=== PATIENT | female | born 1960 | race Caucasian/White ===

== ENCOUNTER → 2019-09-07 06:59 | Outpatient (CLI) | payer OTHER, SELFPAY ==
--- NOTE | 2019-09-07 | CA_ITS ---
APPROVED REPORT Exam: Pharmacologic Technologist: Isabelle Webster Ht: 5 ft 4 in Wt: 129 lbs BSA: 1.62 m2 HR: 60 bpm BP: 105/66 mmHg Indications: Angina at rest Medical History Medications: Hydrocodone,,,,, Xanax,,,,, TopIRAMATE,,,,, WELLBUTRIN,,,,, FluTICASONE,,,,, Suvorexant,,,,, Stress Test Details Test: LEXISCAN HR Resting HR: 64 bpm Max Heart Rate (APMHR): 163 bpm Max HR Achieved: 101 bpm Target HR (85% APMHR): 138 bpm % of APMHR: 61 Recovery HR: 87 bpm BP Resting BP: 105.0/66.0 mmHg Max BP: 127.0/81.0 mmHg Recovery BP: 116.0/80.0 mmHg ECG Clinical Exercise duration: 04:00 min Highest Stage Achieved: Stress ECG Conclusion Symptoms: Chest pain noted after infusion (just a twinge). Arrhythmias/Ectopy: None ST-T Changes: < 1.[address] segment depression/changes Electronically signed by : Ehsan Conti, 09/08/2019 09:14:29
--- NOTE | 2019-09-07 07:02 | NM_ITS ---
APPROVED REPORT Exam: Nuclear Stress Test Indication: Chest pain, SOB, Tobacco use, Family history Patient Location: Outpatient Stress Tech: Isabelle FERRARI Tech:Delia Hawk, ARRT, RT (R)(N) Ht: 5 ft 4 in Wt: 129 lbs Bra Size: 36D HR: 60 bpm BP: 105/66 mmHg BSA: 1.62 m2 BMI: 22.1 History: Chest pain, SOB, Tobacco use, Family history Procedure: Patient received a 0.4 mg of intravenous Lexiscan, resting heart rate 60 bpm, resting blood pressure 105/66 mmHg, with Lexiscan maximum heart rate achived was 97 bpm which is % of the maximum predicted heart rate and blood pressure was 113/79 mmHg. Cardiac Stress and Resting SPECT Images: Cardiac Stress and Resting SPECT images were obtained using technetium 99m Myoview 32.0 mCi stress and 10.64 mCi at rest. EF 59% No reversible defects Slight decrease activity anterior wall possibly due to breast attenuation artifact Conclusion: EF 59% No reversible defects Slight decrease activity anterior wall possibly due to breast attenuation artifact Electronically signed by : Harshal Carrillo MD 09/09/2019 16:11:31
--- NOTE | 2019-09-07 09:25 | HMH.ITSHM ---
Current Home Medications as stated by this patient Selina Jarod or vaccine customer representative. []PREDNISONE BUPROPION TOPIRAMATE SUVOREXANT FLONASE XANAX
== END ==
PROVIDERS: PCP Family Medicine; Visit Provider Family Medicine
DX: I20.8 Other forms of angina pectoris (principal)
CPT/HCPCS: 78452; 93017; A9502; J2785

== ENCOUNTER → 2019-09-19 10:29 | Outpatient (POV) | payer OTHER, SELFPAY | PROVIDERS: PCP Family Medicine; Referring Provider Family Medicine; Visit Provider Specialist | DX: M79.641 Pain in right hand (principal); R20.2 Paresthesia of skin; R20.0 Anesthesia of skin | CPT/HCPCS: 95886; 95908 ==

== ENCOUNTER → 2019-10-04 08:03 | Outpatient (CLI) | payer OTHER, SELFPAY ==
--- NOTE | 2019-10-04 08:08 | XR_ITS ---
PROCEDURE: XR WRIST LT MIN 3V CLINICAL INDICATION: left wrist pain/ CTS COMPARISON: No exams were available for comparison FINDINGS: There is severe osteoarthritis at the 1st metacarpal-trapezium joint and mild osteoarthritis at the trapezius scaphoid joint. There is no acute fracture dislocation or destructive lesion. 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 Dictated by: Sridhar Allen 10/04/2019 09:04 Electronically signed by Sridhar Allen in [place] 10/04/2019 09:04
--- NOTE | 2019-10-04 08:08 | XR_ITS ---
PROCEDURE: XR WRIST RT MIN 3V CLINICAL INDICATION: right wrist pain/ CTS COMPARISON: No exams were available for comparison FINDINGS: There is moderate osteoarthritis at the trapezium scaphoid joint and the 1st metacarpal-trapezium joint. Incidental note is made of osteoarthritis at the 3rd metacarpophalangeal joint. There is no acute fracture dislocation or destructive lesion. IMPRESSION: Osteoarthritis as described with no acute bone pathology. Dictated by: Sridhar Allen 10/04/2019 09:02 Electronically signed by Sridhar Allen in [place] 10/04/2019 09:02
--- NOTE | 2019-10-04 09:38 | XR_ITS ---
PROCEDURE: XR ELBOW RT MIN 3V CLINICAL INDICATION: right elbow pain COMPARISON: No exams were available for comparison FINDINGS: No fracture or dislocation. No lytic or blastic change. There is normal mineralization. The joint spaces are well-preserved. No significant degenerative/arthritic changes. No erosive changes evident. Other findings:None. IMPRESSION: No acute findings. Dictated by: Sridhar Allen 10/04/2019 10:39 Electronically signed by Sridhar Allen in [place] 10/04/2019 10:39
== END ==
PROVIDERS: PCP Family Medicine; Visit Provider Orthopaedic Surgery
DX: M25.531 Pain in right wrist (principal); M25.532 Pain in left wrist; M25.521 Pain in right elbow
CPT/HCPCS: 73080; 73110

== ENCOUNTER 2019-10-04 10:27 | Outpatient (RCR) | payer OTHER, SELFPAY | END 2019-10-04 11:19 | disposition home or self-care (01) | LOC: OT 10:27 | PROVIDERS: Visit Provider Orthopaedic Surgery | DX: M18.12 Unilateral primary osteoarthritis of first carpometacarpal joint, left hand (principal); M18.11 Unilateral primary osteoarthritis of first carpometacarpal joint, right hand; M77.11 Lateral epicondylitis, right elbow | CPT/HCPCS: 97763 ==

== ENCOUNTER → 2019-11-22 14:43 | Outpatient (CLI) | payer OTHER, SELFPAY ==
--- NOTE | 2019-11-22 14:43 | MR_ITS ---
PROCEDURE: MR ELBOW RT WO CON CLINICAL INDICATION: right elbow pain Right elbow pain with tingling in fingers COMPARISON: XR ELBOW RT MIN 3V from 10/04/2019 TECHNIQUE: Routine multiplanar multi echo sequences are performed without gadolinium enhancement. FINDINGS: There is motion artifact on every image on the axial set. No fracture or dislocation evident. No bone marrow edema. No osteochondral lesions evident There is a small amount fluid in the elbow joint but no displaced fat pad. The ulnar collateral ligament appears intact. There is some increased T2 signal in the lateral collateral ligament which may be due to sprain or partial tear. There is increased T2 signal of the common extensor tendon with edema consistent with lateral epicondylitis. The common flexor tendon has an unremarkable appearance. Triceps tendon appears intact. The biceps tendon to the long head of the biceps and brachialis tendon appears intact. IMPRESSION: Findings are compatible with lateral epicondylitis with sprain or partial tear of the lateral collateral ligament Dictated by: Harshal Carrillo MD 11/25/2019 10:39 Electronically signed by Harshal Carrillo MD in [place] 11/25/2019 10:39
== END ==
PROVIDERS: PCP Family Medicine; Visit Provider Orthopaedic Surgery
DX: M77.11 Lateral epicondylitis, right elbow (principal)
CPT/HCPCS: 73221

== ENCOUNTER → 2020-04-11 12:43 | Outpatient (CLI) | payer OTHER, SELFPAY ==
--- NOTE | 2020-04-11 12:52 | CT_ITS ---
PROCEDURE: CT LUNG SCREENING CLINICAL INDICATION: H/O NICOTINE DEPENDENCE Current smoker 42 pack year smoking history COMPARISON: No exams were available for comparison TECHNIQUE: The exam was performed on a GE Light Speed [address] scanner using 2.90 mGy CTDI. A low dose helical CT CHEST was performed on a multi-detector scanner. All CT scans at the facility use one or more dose reduction, viz: automated exposure control, ma/kV adjustment per patient size (including targeted exams where dose is matched to indication, i.e. head), or iterative reconstruction technique. The LDCT was performed in a facility that meets the criteria for the screening program. Data regarding this exam was submitted to ACR which is an approved registry. The order for this exam indicates that it came as a result of a lung cancer screening counseling shard decision-making visit that included all the elements required of such a visit including smoking cessation. The radiologist interpreting this exam meets the CMS criteria for the LDCT lung cancer screening program. The exam is reported using the Lung-RADS classification scale and reported to the ACR registry. NOTE: This study was performed for the specific purposes of lung cancer screening and is not an alternative to diagnostic chest CT. RADIATION DOSE: CTDI vol(CT dose Index-volume) = 2.90mG DLP (Dose Length Product) = 99.51 mGcm FINDINGS: COPD with mild prominence of the interstitium with mild bronchial thickening. There is evidence of old granulomatous disease with some scattered scarring. OTHER FINDINGS: There is a 2 cm subtle low-density lesion involving the right hepatic lobe which is incompletely imaged. MRI abdomen with hemangioma protocol suggested. There is splenomegaly at 13 cm there are bilateral sub mammary implants. IMPRESSION: Lung-RADS Category 2 Benign Appearance or Behavior Follow-up: Continue annual screening with LDCT in 12 months Recommend MRI abdomen with hemangioma protocol for further evaluation of the 2 cm right hepatic lobe lesion. Dictated by: Harshal Carrillo MD 04/15/2020 12:55 Harshal Carrillo MD in [place] 04/15/2020 12:55
== END ==
PROVIDERS: PCP Family Medicine; Visit Provider Family Medicine
DX: Z87.891 Personal history of nicotine dependence (principal); Z12.2 Encounter for screening for malignant neoplasm of respiratory organs

== ENCOUNTER → 2020-05-02 15:43 | Outpatient (CLI) | payer OTHER, SELFPAY ==
[2020-05-02 17:47] LABS: Blood Urea Nitrogen 10 mg/dl (7-17); Estimated Glomerular Filt Rate 57 ml/min (>60); GFR (African American) 69 ML/MIN (>60)
== END ==
PROVIDERS: Visit Provider Family Medicine
DX: K76.89 Other specified diseases of liver (principal)
CPT/HCPCS: 36415; 82565; 84520

== ENCOUNTER → 2020-05-04 07:41 | Outpatient (CLI) | payer OTHER, SELFPAY ==
--- NOTE | 2020-05-04 07:44 | MR_ITS ---
PROCEDURE: MR ABDOMEN WO/W CON CLINICAL INDICATION: LIVER CYST Follow-up liver lesion COMPARISON: CT CT LUNG SCREENING from 04/11/2020 TECHNIQUE: Routine multiplanar multi echo sequences are performed without gadolinium enhancement. FINDINGS: There is a rounded 2 cm lesion in the right hepatic lobe which demonstrates some lobularity of its margins. This is hypointense on T1 and hyperintense on T2. The T2 hyperintensity is not quite as intense as CSF. There is prominent peripheral centripetal contrast enhancement with delayed enhancement consistent with a hemangioma. The lesion is hyperintense on the DWI images. There is a 6 mm T2 hyperintensity in the hepatic dome on the right which is too small to categorize. The spleen, adrenal glands, pancreas, and kidneys have an unremarkable appearance. There are bilateral breast implants present IMPRESSION: 2 cm lesion in the right lobe of the liver segment 6 compatible with a hemangioma. 6 mm T2 hyperintensity in the patent dome on the right which could be due to small cyst. Six-month follow-up may confirm stability of the above mentioned findings. Dictated by: Harshal Carrillo MD 05/07/2020 06:21 Harshal Carrillo MD in [place] 05/07/2020 06:21
== END ==
PROVIDERS: PCP Family Medicine; Visit Provider Family Medicine
DX: K76.89 Other specified diseases of liver (principal)
CPT/HCPCS: 74183; A9576

== ENCOUNTER 2020-05-30 15:20 | Emergency (ER) | payer OTHER, SELFPAY ==
[2020-05-30 15:48] VITALS: BP 142/87; PULSE 77; RESP 19; TEMP 37; O2SAT 98; BMI 22.3
--- NOTE | 2020-05-30 16:12 | HMH.EDUTC ---
[facility] [place] Disposition Clinical Impression: COPD exacerbation, Exposure to COVID-19 virus Disposition: Home, Self-Care Condition on Discharge: Good Instructions: Preventing the Spread of Coronavirus Discharge Instructions Additional Instructions: Drink plenty of fluids. Take tylenol for pain or fever. Return if you begin to have difficulty breathing. Follow up with your regular doctor. GO TO THE ER FOR ANY WORSENING SYMPTOMS Prescriptions: predniSONE [Prednisone 20mg Tab] 20 mg PO BID 4 Days #8 tab Transmission Status: Received by [facility] Benzonatate [Tessalon Perle 100mg Cap] 100 mg PO TIDP PRN #30 cap PRN Reason: Cough Transmission Status: Received by [facility] Azithromycin [Z-Adam 250mg Tab*] 250 mg PO UD DOSE PK #6 tab Transmission Status: Received by [facility] Referrals: Javier Green MD [Primary Care Provider] - Time of Disposition: 16:31 Medical Decision Making - Medical Records Medical records reviewed: No: I reviewed the patient's medical records. - Rui Inquiry Pt receiving controlled substance: No Vital Signs: 05/30/20 15:48 05/30/20 16:48 Temperature 98.6 F 98.6 F Temperature Source Oral Oral Pulse Rate 77 Pulse Rate [Radial] 77 Respiratory Rate 19 19 Blood Pressure 142/87 H Blood Pressure [Right Arm] 142/87 H Blood Pressure Mean [Right Arm] 105 Blood Pressure Source Automatic Cuff Blood Pressure Source [Right Arm] Automatic Cuff Blood Pressure Position Sitting Blood Pressure Position [Right Arm] Sitting 02 Sat by Pulse Oximetry 98 Oxygen Delivery Method Room Air Room Air Orders (Tests/Meds): ORDERS Category Date Time Status Covid-19 Nasal PCR ([facility]) Routine Lab 05/30/20 15:40 Received [facility] [place] HPI - General Stated complaint: covid exposure Time Seen by Provider: 05/30/20 16:12 Mode of Arrival: Ambulatory Source of Information: Patient Description of Symptoms (Recalled from Triage Doc. by RN): covid test, runny nose SOB HEENT Symptoms (Recalled from RN notes): Yes Resp Symptoms (Recalled from RN notes): No Skin Symptoms (Recalled from RN notes): No MS Symptoms (Recalled from RN notes): No Functional Status (Recalled from RN notes): wnl - History of Present Illness Provider Complaint: She c/o cough, sore throat, chest tightness and feeling bad for the past 2 days. Her mother has covid-19 currently and she has been around her regualarly. She has a history of copd, but she denies significant shortness of breath at this time. - Related Data Home Medications Medication Instructions Recorded Confirmed ALPRAZolam [Xanax 1mg tab] 1 mg PO DIRECTED 03/13/19 04/17/20 Fluticasone Propionate [Flonase 1 spray NS DAILY 03/13/19 04/17/20 Allergy Relief NS] Hydrocodone/Acetaminophen [Lortab 1 tab PO Q4HP PRN 03/13/19 04/17/20 10/325mg tablet] Suvorexant [Belsomra] 20 mg PO HS 03/13/19 04/17/20 Topiramate 150 mg PO BID 03/13/19 04/17/20 buPROPion HCL [Wellbutrin SR 150mg 450 mg PO DAILY 03/13/19 04/17/20 Tablet] Previous Rx's Medication Instructions Recorded Azithromycin [Z-Adam 250mg Tab*] 250 mg PO UD DOSE PK #6 tab 05/30/20 Benzonatate [Tessalon Perle 100mg 100 mg PO TIDP PRN #30 cap 05/30/20 Cap] predniSONE [Prednisone 20mg 20 mg PO BID 4 Days #8 tab 05/30/20 Tab] Allergies Allergy/AdvReac Type Severity Reaction Status Date / Time Sulfa (Sulfonamide Allergy Unknown NAUSEA/VOMI Verified 04/17/20 16:35 Antibiotics) TING [SULFA (SULFONAMIDE ANTIBIOTICS)] - Worker's Comp Is this a Worker's Comp case?: No [facility] History - Hepatitis A Screen Drug use history?: No High risk sexual behaviors?: No History of sexually transmitted infection?: No Currently employed?: No Childcare worker?: No Do you have indoor plumbing?: Yes Do you have electricity?: Yes Attestation statement:: This patient has been screened for Hepatitis A risk fac
[2020-05-30 16:48] VITALS: BP 142/87; PULSE 77; RESP 19; TEMP 37; O2SAT 98
== END 2020-05-30 16:49 | disposition home or self-care (01) ==
PROVIDERS: Emergency Provider Nurse Practitioner Family; PCP Family Medicine
DX: Z20.828 Contact with and (suspected) exposure to other viral communicable diseases (principal); J44.1 Chronic obstructive pulmonary disease with (acute) exacerbation; F41.8 Other specified anxiety disorders; F17.210 Nicotine dependence, cigarettes, uncomplicated; Z79.899 Other long term (current) drug therapy
CPT/HCPCS: 99201; U0003

== ENCOUNTER → 2020-08-28 13:48 | Outpatient (CLI) | payer OTHER, SELFPAY ==
--- NOTE | 2020-08-28 13:53 | XR_ITS ---
PROCEDURE: XR SHOULDER RT MIN 2V CLINICAL INDICATION: PAIN IN RT SHOULDER COMPARISON: No exams were available for comparison FINDINGS: No fracture or dislocation. No lytic or blastic change. There is normal mineralization. The joint spaces are well-preserved. No significant degenerative/arthritic changes. No erosive changes evident. Other findings:No subacromial stenosis. A sclerotic focus is present in the subglenoid region and may be due to a bone island. Calcified granuloma is present in the right apex IMPRESSION: No acute finding Dictated by: Harshal Carrillo MD 08/28/2020 14:23 Harshal Carrillo MD in [place] 08/28/2020 14:23
== END ==
PROVIDERS: PCP Family Medicine; Visit Provider Family Medicine
DX: M25.511 Pain in right shoulder (principal)
CPT/HCPCS: 73030

== ENCOUNTER → 2021-02-06 10:26 | Outpatient (CLI) | payer OTHER, SELFPAY ==
--- NOTE | 2021-02-06 10:30 | XR_ITS ---
PROCEDURE: XR HAND RT MIN 3V CLINICAL INDICATION: METACARPOPHALANGEAL JOINT PAIN OF RT HAND COMPARISON: No exams were available for comparison FINDINGS: No fracture or dislocation. No lytic or blastic change. There is normal mineralization. There are osteoarthritic changes of the scapho trapezium joint in the 1st metacarpal-carpal joint. There is also decrease in the joint space at 2nd and 3rd metacarpophalangeal joint with mild osteosclerosis consistent with mild osteoarthritic change. No obvious soft tissue swelling or bony destruction. Other findings:None. IMPRESSION: Osteoarthritic changes as described above. Dictated by: Harshal Carrillo MD 02/06/2021 11:15 Harshal Carrillo MD in [place] 02/06/2021 11:15
== END ==
PROVIDERS: PCP Family Medicine; Visit Provider Family Medicine
DX: M25.541 Pain in joints of right hand (principal)
CPT/HCPCS: 73130

== ENCOUNTER 2021-03-09 13:02 | Emergency (ER) | payer OTHER, SELFPAY ==
[2021-03-09 15:00] VITALS: BP 127/86; PULSE 68; RESP 18; TEMP 36.9; O2SAT 99; BMI 19.3
--- NOTE | 2021-03-09 15:24 | HMH.EDUTC ---
[place] Disposition Clinical Impression: Exposure to COVID-19 virus Disposition: Home, Self-Care Condition on Discharge: Good Instructions: DI for COVID-19 (Suspected or Confirmed ), Preventing the Spread of Coronavirus Discharge Instructions Additional Instructions: *Monitor Temp, Over the counter Motrin or Tylenol as directed/as needed Tylenol every 4 hours and Motrin every 6 hours (as long as your family doctor has told you that you can take it) for fever or pain. and straight to ER if unable to lower temp less than 101.0 after medication given *Warm salt water gargles may help to soothe the throat *Throat Lozenges *Warm fluids like tea with honey may help to soothe the throat and nasal congestion *Sleep elevated *Humidifier/Vaporizer Follow up IMMEDIATELY for new or worsening symptoms or no Noticeable improvement over the next 48-72 hours. 911 for difficulty breathing or swallowing You were tested for today for COVID19 your test result should be back in the next 24-48 hours, You was given written instructions for [facility] portal you can see your results there when they come back you may check it often to see if they are done You was given a handout with instructions for Self Quarantine and Self isolation for while you wait on test results and what to do if they are positive If you are positive the Health Dept will be contacting you also Make sure to take your Vitamins Vit. C Vit D and Zinc if you can take them Referrals: Javier Green MD [Primary Care Provider] - As needed Time of Disposition: 15:27 Medical Decision Making - Rui Inquiry Pt receiving controlled substance: No Rui was queried for this patient: No Vital Signs: 03/09/21 15:00 03/09/21 15:43 Temperature 98.4 F 98.4 F Temperature Source Oral Pulse Rate 68 Pulse Rate [Right Brachial] 68 Respiratory Rate 18 18 Blood Pressure 127/86 Blood Pressure [Right Arm] 127/86 Blood Pressure Mean [Right Arm] 99 Blood Pressure Source [Right Arm] Automatic Cuff Blood Pressure Position [Right Arm] Sitting 02 Sat by Pulse Oximetry 99 Oxygen Delivery Method Room Air [place] HPI - General Stated complaint: covid symptoms / test Time Seen by Provider: 03/09/21 15:24 Mode of Arrival: Ambulatory Source of Information: Patient Limitations: No Limitations Description of Symptoms (Recalled from Triage Doc. by RN): COVID TEST D/T EXPOSURE 10 DAYS AGO HEENT Symptoms (Recalled from RN notes): No Resp Symptoms (Recalled from RN notes): No Skin Symptoms (Recalled from RN notes): No MS Symptoms (Recalled from RN notes): No Functional Status (Recalled from RN notes): WNL - History of Present Illness Provider Complaint: Patient states that she was around someone about 10 days ago that was positive for COVID state that she has been having cough and feels like she is nasal congestion so she came in wanting to get checked and tested for COVID - Related Data Home Medications Medication Instructions Recorded Confirmed ALPRAZolam [Xanax 1mg tab] 1 mg PO DIRECTED 03/13/19 04/17/20 Fluticasone Propionate [Flonase 1 spray NS DAILY 03/13/19 04/17/20 Allergy Relief NS] Hydrocodone/Acetaminophen [Lortab 1 tab PO Q4HP PRN 03/13/19 04/17/20 10/325mg tablet] Suvorexant [Belsomra] 20 mg PO HS 03/13/19 04/17/20 Topiramate 150 mg PO BID 03/13/19 04/17/20 buPROPion HCL [Wellbutrin SR 150mg 450 mg PO DAILY 03/13/19 04/17/20 Tablet] Previous Rx's Medication Instructions Recorded Azithromycin [Z-Adam 250mg Tab*] 250 mg PO UD DOSE PK #6 tab 05/30/20 Benzonatate [Tessalon Perle 100mg 100 mg PO TIDP PRN #30 cap 05/30/20 Cap] predniSONE [Prednisone 20mg 20 mg PO BID 4 Days #8 tab 05/30/20 Tab] Allergies Allergy/AdvReac Type Severity Reaction Status Date / Time Sulfa (Sulfonamide Allergy Unknown NAUSEA/VOMI Verified 04/17/20 16:35 Antibiotics) TING [SULFA (SULFONAMIDE ANTIBIOTICS)] - Worker's Comp Is this a Wo
[2021-03-09 15:43] VITALS: BP 127/86; PULSE 68; RESP 18; TEMP 36.9; O2SAT 99
== END 2021-03-09 15:50 | disposition home or self-care (01) ==
PROVIDERS: Emergency Provider Nurse Practitioner Family; PCP Family Medicine
DX: R05 Cough (principal); Z20.822 Contact with and (suspected) exposure to COVID-19
CPT/HCPCS: 99202; G0463; U0003

== ENCOUNTER → 2021-11-20 17:50 | Outpatient (CLI) | payer OTHER, SELFPAY ==
[2021-11-20 13:59] LABS: Alanine Aminotransferase 15 U/L (12-78); Albumin Level 4.3 g/dl (3.5-5.0); Alkaline Phosphatase 61 U/L (38-126); Anion Gap 12.2 mEq/L (5-15); Aspartate Amino Transferase 24 U/L (14-36); Blood Urea Nitrogen 6 mg/dl (7-17); Calcium 9.3 mg/dl (8.4-10.2); Carbon Dioxide 25 mmol/L (22.0-30.0); Chloride 109 mmol/L (98-107); Chol/HDL Ratio 2.8 (1-3.5); Cholesterol 218 mg/dl (140-200); Estimated Glomerular Filt Rate 73 ml/min (>60); GFR (African American) 89 ML/MIN (>60); Globulin 2.2 g/dL (1.3-3.2); Glucose 79 mg/dl (74-100); HDL Cholesterol 78 mg/dl (40-60); Potassium 4.2 mmoL/L (3.5-5.1); Sodium 142 mmol/L (136-145); Total Protein,Serum 6.5 g/dl (6.3-8.2); Triglycerides 90 mg/dl (30-150); VLDL Cholesterol 18 mg/dL (0-40)
[2021-11-20 14:01] LABS: Basophils # 0.1 K/mm3 (0-0.2); Basophils % 1.6 % (0.1-2.0); Eosinophils # 0.4 K/mm3 (0.0-0.4); Eosinophils % 6.4 % (0.1-12.0); Hematocrit 44.9 % (37.0-47.0); Hemoglobin 14.5 g/dL (12.2-16.2); Lymphocytes # 1.5 K/mm3 (0.7-4.5); Lymphocytes % 23.3 % (10-50); Mean Corpuscular HGB Conc 32.4 g/dL (31.8-35.4); Mean Corpuscular Hemoglobin 32.7 pg (27.0-31.2); Mean Corpuscular Volume 101.1 fl (81-99); Mean Platelet Volume 11.3 fl (7.4-10.4); Monocytes # 0.4 K/mm3 (0.1-1.0); Monocytes % 5.9 % (1.7-9.3); Neutrophils # 4.2 K/mm3 (1.8-7.8); Neutrophils % 62.7 % (37.0-80.0); Platelet Count 289 K/mm3 (142-424); Red Blood Count 4.44 M/mm3 (4.20-5.40); Red Cell Distribution Width 12.9 % (11.5-17.5); White Blood Count 6.6 K/mm3 (4.8-10.8)
[2021-11-20 14:06] LABS: Bilirubin,Total < 0.1 mg/dl (0.2-1.3)
[2021-11-20 14:10] LABS: Direct LDL Cholesterol 111.57 mg/dL (100-129)
[2021-11-20 14:15] LABS: Free T4 (Free Thyroxine) 0.86 ng/dl (0.78-2.19)
[2021-11-20 14:23] LABS: Amphetamine/Metha Screen,Urine Negative ng/ml (<1000)
[2021-11-20 14:24] LABS: Barbiturates Screen,Urine Negative ng/ml (<200); Benzodiazepines Screen,Urine Positive ng/ml (<200)
[2021-11-20 14:25] LABS: Cannabinoid Screen,Urine Negative ng/ml (<50)
[2021-11-20 14:26] LABS: Cocaine Screen,Urine Negative ng/ml (<300); Methadone Screen,Urine Negative ng/ml (<300)
[2021-11-20 14:27] LABS: Opiate Screen,Urine Positive ng/ml (<300)
[2021-11-20 14:28] LABS: Phencyclidine Screen,Urine Negative ng/ml (<25)
[2021-11-20 14:31] LABS: Thyroid Stimulating Hormone 2.07 uIU/mL (0.465-4.68)
== END ==
PROVIDERS: Visit Provider Emergency Medicine
DX: G43.909 Migraine, unspecified, not intractable, without status migrainosus (principal); E55.9 Vitamin D deficiency, unspecified; Z79.899 Other long term (current) drug therapy
CPT/HCPCS: 80053; 80061; 80305; 82306; 84439; 84443; 85025

== ENCOUNTER → 2021-11-27 14:52 | Outpatient (CLI) | payer OTHER, SELFPAY ==
--- NOTE | 2021-11-27 14:53 | MR_ITS ---
FINAL REPORT TECHNIQUE: Multiplanar and multisequence imaging of the cervical spine was obtained. CLINICAL HISTORY: neck pain. NECK PAIN WITH LIMITED MOVEMENT. HEADACHE. BILATERAL SHOULDER PAIN. FINDINGS: There is reversal the cervical lordosis. Alignment is otherwise normal. There is very mild chronic anterior compression of C4. Signal intensity within the substance of the spinal cord is normal. Bone marrow signal intensity is normal. Paraspinal soft tissues are within normal limits. C2/3: There is no focal disc herniation, central stenosis or neural foraminal narrowing. C3/4: There is a central disc protrusion superimposed on disc osteophyte complex. There is mild central canal and bilateral foraminal narrowing. C4/5: There is a mild disc osteophyte complex. There is mild central canal stenosis. There is severe bilateral foraminal narrowing. C5/6: There is a mild disc osteophyte complex. There is no central canal stenosis. There is severe right and moderate left foraminal narrowing. C6/7: There is a broad-based disc osteophyte complex. There is no central canal stenosis. There is moderate right and severe left foraminal narrowing. C7/T1: There is no focal disc herniation, central stenosis or neural foraminal narrowing. IMPRESSION: Reversal the cervical lordosis. Multilevel degenerative disc disease as described.. Reviewed, Interpreted and Dictated by Jessica Mercado MD Transcribed by Júnior Bonner Authenticated by Jessica Mercado MD on 11/27/2021 04:56:50 PM [facility]
--- NOTE | 2021-11-27 14:53 | MR_ITS ---
FINAL REPORT TECHNIQUE: Multiplanar and multisequence imaging of the lumbar spine was obtained without contrast. CLINICAL HISTORY: back pain. BILATERAL LEG PAIN BUT WORSE IN LEFT LEG. COMPARISON: None. FINDINGS: There is mild levoscoliosis. There is grade 1 anterior spondylolisthesis of L3 on L4. Alignment is otherwise normal. Vertebral body height is preserved. The spinal cord ends at the level of L1. There is normal signal intensity within the substance of the distal spinal cord. There are degenerative endplate changes at L4-5. Marrow signal is otherwise normal. No acute paraspinal abnormality is identified. L1-2: There is mild disc osteophyte complex. There is no central canal stenosis. There is mild left greater than right foraminal narrowing. L2-3: There is mild disc osteophyte complex. There is no central canal stenosis. There is mild to moderate left foraminal narrowing. L3-4: There is broad-based disc osteophyte complex. There is moderate to severe central canal stenosis. There is severe right and mild to moderate left foraminal narrowing. L4-5: There is mild disc osteophyte complex. There is moderate central canal stenosis. There is moderate to severe L5-S1: There is mild disc osteophyte complex. There is no central stenosis. There is mild right and moderate left foraminal narrowing. IMPRESSION: 1. Grade 1 anterior spondylolisthesis of L3 on L4. 2. Multilevel degenerative disc disease as detailed above for each level. 3. Mild scoliosis. Authenticated by Jessica Mercado MD on 11/27/2021 05:05:43 PM [facility]
== END ==
PROVIDERS: PCP Emergency Medicine; Visit Provider Emergency Medicine
DX: M54.9 Dorsalgia, unspecified (principal); M54.2 Cervicalgia; M54.50 Low back pain, unspecified
CPT/HCPCS: 72141; 72148; 76376

== ENCOUNTER → 2021-11-29 14:35 | Outpatient (CLI) | payer OTHER, SELFPAY ==
--- NOTE | 2021-11-29 14:35 | MM_ITS ---
PROCEDURE INFORMATION: Exam: MG Bilateral Screening 3D Mammography Exam date and time: 11/29/2021 3:11 PM Age: 61 years old Clinical indication: Screening examination. No family history of breast cancer. TECHNIQUE: Imaging protocol: Bilateral Screening tomosynthesis and 2D mammography including computer-aided detection (CAD) when performed. COMPARISON: No relevant prior studies available. FINDINGS: MAMMOGRAPHY: Breast composition: There are scattered areas of fibroglandular density. Mass: None. Architectural distortion: None. Calcifications: No suspicious calcifications. Asymmetric density: None. Skin thickening: None. Axillary adenopathy: None. Implants: Subpectoral saline implants. IMPRESSION: No mammographic evidence of malignancy. Annual screening is recommended unless otherwise clinically indicated. ASSESSMENT: BI-RADS Category 1: Negative
== END ==
PROVIDERS: PCP Emergency Medicine; Visit Provider Emergency Medicine
DX: Z12.31 Encounter for screening mammogram for malignant neoplasm of breast (principal)
CPT/HCPCS: 77063; 77067

== ENCOUNTER → 2021-12-17 10:45 | Outpatient (POV) | payer OTHER, SELFPAY ==
--- NOTE | 2021-12-17 11:38 | HMH.PMCON ---
Assessment and Plan (1) Cervical pain (neck) Status: Chronic Category: Medical Code(s): M54.2 - Cervicalgia (2) Cervical radiculopathy Status: Chronic Category: Medical Code(s): M54.12 - Radiculopathy, cervical region (3) Lumbar back pain with radiculopathy affecting lower extremity Status: Chronic Category: Medical Code(s): M54.16 - Radiculopathy, lumbar region - Assessment and plan all Dx Assessment and Plan for all problems:: This patient is a very pleasant 61-year-old female who comes our clinic today regarding cervical neck pain with radicular symptoms into bilateral arms as well as lumbar back pain with radicular symptoms in the bilateral legs. Patient's main complaint is cervical neck pain with radicular symptoms patient has been having this for 5 to 6 years. Her cervical MRI shows degenerative disc disease multilevel cervical spine. Multilevel foraminal stenosis cervical spine. Patient has a longstanding history of migraine headaches. She has had some medial branch blocks in the cervical spine with radiofrequency ablation. However, this did not bring her any relief to speak of. She describes her cervical neck pain as constant, dull, aching. She does complain of bilateral arm radicular symptoms at times. As well as migraines. Also, patient describes low back pain is constant, dull, aching. She refers to bilateral posterior hip and leg radicular symptoms. Patient's lumbar MRI shows degenerative disc disease lumbar spine multilevels. Lumbar spondylosis. Spinal stenosis lumbar spine. Spondylolisthesis L3-4. Patient is currently taking hydrocodone 10 mg 1 p.o. 4 times daily. This comes from her PCP. Her Rui #[id number] is been reviewed and appropriate. Patient states the pain medicine does seem to help her pain. 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 Patient has tried physical therapy in the past with minimal to no results. She does alternate acetaminophen and ibuprofen 2-3 times a day. This brings slight relief. Is awake alert [place] x3. In no acute distress. Flexion-extension lumbar spine and cervical spine somewhat guarded secondary to pain. Deep tendon reflexes upper and lower extremities normal. Motor strength upper and lower extremities normal. There is no gross sensory deficit. Gait is normal. Degenerative disc disease cervical spine. Degenerative disc disease lumbar spine. Cervical and lumbar radiculopathy symptoms. Discussed in detail with the patient regarding options of treatment. We will focus on the cervical spine first. We discussed at length cervical epidural steroid injection. She wishes to proceed. HPI - Data of Consult Consult date: 12/17/21 Requesting Physician: Regino Nair CRNA - Consult Narrative Reason for consult: Lumbar back pain. Cervical neck pain. History of present illness: Ms. Olivera is a 61 year old female CC: Regino Nair CRNA [facility] History Medical History: Reports:: Anxiety, Chronic Obstructive Pulmonary Disease (COPD), Depression *Have you ever received a pneumonia vaccine?: No *Have you received a flu vaccine this season?: Yes Other Surgeries: Yes: Appendectomy, Colonoscopy, Dilation and Curettage, Hysterectomy-Total Amputation: No Fractures: No - *Social History Smoking Status: Current every day smoker Tobacco Type: cigarettes # Packs/Day (cigarettes): 1 Alcohol Intake: never Substance Use Type: denies use *Occupational Status:: other, unemployed *Travel in the last 8 weeks: Inside the [place] - Psychiatric History Pschychiatric History:: Reports:: Anxiety, Depression Family Hx:: Heart Attack, Cancer Meds Home Medications Medication Instructions Recorded Confirmed Type Suvorexant [Belsomra] 20 mg PO HS 03/13/19 11/20/21 History Topiramate 150 mg PO BID 03/13/19 11/20/21 History buPROPion HCL [Wellbutrin SR 150mg 450 mg PO DAILY 03/13/19 11/20/21 History Tablet] alprazolam 1 mg tablet
[2021-12-17 12:20] VITALS: BP 118/76; PULSE 68; RESP 20; TEMP 36.7; O2SAT 97; BMI 20.2
== END ==
PROVIDERS: Visit Provider Nurse Anesthetist, Certified Registered
DX: M51.16 Intervertebral disc disorders with radiculopathy, lumbar region (principal); M50.10 Cervical disc disorder with radiculopathy, unspecified cervical region
CPT/HCPCS: 99202; G0463

== ENCOUNTER 2022-01-03 13:26 | Day surgery (SDC) | payer OTHER, SELFPAY ==
[2022-01-03 13:51] VITALS: BP 104/80; PULSE 74; RESP 18; TEMP 36.6; O2SAT 96; BMI 19.7
[2022-01-03 14:14] VITALS: BP 135/74; PULSE 85; RESP 18; O2SAT 98
[2022-01-03 14:15] VITALS: BP 132/74; PULSE 68; RESP 18; O2SAT 98
--- NOTE | 2022-01-03 14:18 | HMH.PMPROC ---
- Procedure Date: 01/03/22 Time: 14:18 Anesthesiologist:: Cecil Mcnamara MD Complications:: None Pre-procedure Diagnosis:: Degenerative disc disease of cervical spine with cervical radiculopathy symptoms Post-procedure Diagnosis:: Same Indications for Procedure:: Patient is a pleasant 61-year-old white female who we are treating for neck pain with cervical radicular symptoms. She has increasing pain in her neck radiating to both shoulders. We will plan on cervical epidural steroid injection under fluoroscopy today to see if this helps with her pain symptoms. Procedure Details:: Cervical epidural steroid injection under fluoroscopy Informed consent was obtained and the risks and benefits of the procedure was explained to the patient. The patient was taken to the procedure room placed prone on the procedure table. The neck was prepped using ChloraPrep. The skin and subcutaneous tissues were anesthetized using lidocaine. I placed a 18-gauge epidural needle into the C5-C6 interspace and advanced using [id number] to air and fluoroscopic guidance. After confirmation of needle placement in the epidural space with dye, I injected 3 mL's lidocaine 1.5% and Depo-Medrol 80 mg. The patient tolerated the procedure well with no complications. Plan and Disposition:: We will follow-up with her in 2 weeks. Will reevaluate symptoms at that time.
[2022-01-03 14:25] VITALS: BP 143/77; PULSE 78; RESP 20; O2SAT 100
== END 2022-01-03 14:26 | disposition home or self-care (01) ==
LOC: SC.PAINP 13:27
PROVIDERS: PCP Emergency Medicine; Visit Provider Anesthesiology
DX: M50.122 Cervical disc disorder at C5-C6 level with radiculopathy (principal)
CPT/HCPCS: 62321; J1040; Q9966

== ENCOUNTER → 2022-01-17 14:28 | Outpatient (CLI) | payer OTHER, SELFPAY ==
[2022-01-17 14:40] LABS: Benzodiazepines Screen,Urine Positive ng/ml (<200)
[2022-01-17 14:41] LABS: Amphetamine/Metha Screen,Urine Negative ng/ml (<1000)
[2022-01-17 14:42] LABS: Barbiturates Screen,Urine Negative ng/ml (<200); Cannabinoid Screen,Urine Negative ng/ml (<50)
[2022-01-17 14:43] LABS: Cocaine Screen,Urine Negative ng/ml (<300); Methadone Screen,Urine Negative ng/ml (<300)
[2022-01-17 14:44] LABS: Opiate Screen,Urine Positive ng/ml (<300)
[2022-01-17 14:45] LABS: Phencyclidine Screen,Urine Negative ng/ml (<25)
== END ==
PROVIDERS: PCP Emergency Medicine; Visit Provider Emergency Medicine
DX: Z79.899 Other long term (current) drug therapy (principal)
CPT/HCPCS: 80305

== ENCOUNTER → 2022-01-20 11:13 | Outpatient (CLI) | payer OTHER, SELFPAY ==
--- NOTE | 2022-01-20 11:14 | MR_ITS ---
FINAL REPORT CLINICAL HISTORY: near constant headache. MIGRAINE HEADACHE BECOMING MORE FREQUENT. DIZZINESS AND BLUURED VISION. FINDINGS: Multiplanar MR imaging of the brain was performed without contrast. There are multiple foci of increased T2 signal in the cerebral white matter. There is no evidence of intracranial hemorrhage or mass. The ventricular size is normal. There is no evidence of shift of the midline structures. No abnormal extra-axial fluid collection is identified. The posterior fossa and brainstem have an unremarkable appearance. No area of abnormal restricted diffusion is identified. Normal major vessel vascular flow voids are seen. IMPRESSION: Multiple foci of increased T2 signal in the cerebral white matter are favored to represent mild, chronic ischemic/gliotic change room attendant other etiologies including demyelination and vasculitis. Reviewed, Interpreted and Dictated by Lucas Prado III, MD Transcribed by Júnior Bonner Authenticated and . [facility]
== END ==
PROVIDERS: PCP Emergency Medicine; Visit Provider Nurse Practitioner Family
DX: G43.119 Migraine with aura, intractable, without status migrainosus (principal); G44.209 Tension-type headache, unspecified, not intractable; G44.40 Drug-induced headache, not elsewhere classified, not intractable; G44.86 Cervicogenic headache; G89.29 Other chronic pain; M54.2 Cervicalgia
CPT/HCPCS: 70551

== ENCOUNTER 2022-02-05 14:40 | Emergency (ER) | payer OTHER, SELFPAY ==
--- NOTE | 2022-02-05 15:06 | HMH.EDUTC ---
[facility] [place] Disposition Clinical Impression: COVID-19 Acute bronchitis Qualifiers: Bronchitis organism: unspecified organism Qualified Code(s): J20.9 - Acute bronchitis, unspecified Disposition: Home, Self-Care Condition on Discharge: Good Instructions: DI for COVID-19 (Suspected or Confirmed ), Preventing the Spread of Coronavirus Discharge Instructions Additional Instructions: Drink plenty of fluids. Take tylenol or ibuprofen for pain or fever. Take the medications as directed. Follow up with your regular doctor. GO TO THE ER FOR ANY WORSENING SYMPTOMS Prescriptions: Benzonatate [Benzonatate 100mg cap] 100 mg PO TIDP PRN #30 cap PRN Reason: Cough Transmission Status: Received by [facility] methylPREDNISolone [Medrol] 4 mg PO DIRECTED 6 Days #21 packet Transmission Status: Received by [facility] Azithromycin [Z-Adam 250mg Tab*] 250 mg PO UD DOSE PK #6 tab Transmission Status: Received by [facility] Referrals: Parmjit Reyna MD [Primary Care Provider] - Time of Disposition: 15:56 Medical Decision Making - Medical Records Medical records reviewed: No: I reviewed the patient's medical records. - Rui Inquiry Pt receiving controlled substance: No Vital Signs: 02/05/22 15:19 02/05/22 16:04 Temperature 98.3 F 98.3 F Temperature Source Oral Pulse Rate 71 Pulse Rate [Left] 71 Respiratory Rate 16 16 Blood Pressure 128/82 Blood Pressure [Right Arm] 128/82 Blood Pressure Mean [Right Arm] 97 02 Sat by Pulse Oximetry 97 Orders (Tests/Meds): ORDERS Category Date Time Status Chest XR 2 view (NOT portable) [XR chest 2V] Stat Exams 02/05/22 15:16 Taken Covid-19 Nasal PCR ([facility]) Routine Lab 02/05/22 15:11 Received - Radiology Data #1 Image(s): Chest Image Reviewed: Yes I reviewed the patient's radiology image, Yes I have reviewed radiologist's interpretation Preliminary Findings: No Infiltrates Seen [facility] [place] HPI - General Stated complaint: sore throat, shortness of breath, diarreah Time Seen by Provider: 02/05/22 15:06 - History of Present Illness Provider Complaint: She states that she tested positive for covid-19 one week ago. She states that she is having chest congestion and a productive cough for the past 4 days. - Related Data Home Medications Medication Instructions Recorded Confirmed Suvorexant [Belsomra] 20 mg PO HS 03/13/19 01/17/22 Topiramate 100 mg PO TID 03/13/19 01/17/22 buPROPion HCL [Wellbutrin SR 150mg 450 mg PO DAILY 03/13/19 01/17/22 Tablet] Albuterol Sulfate [Proair Hfa] 90 mcg IH DIRECTED PRN 12/17/21 01/17/22 Ascorbic Acid [Vitamin C] 1,000 mg PO DAILY 12/17/21 01/17/22 Aspirin 81 mg PO DAILY 12/17/21 01/17/22 Benzonatate [Benzonatate 100mg 100 mg PO TID PRN 12/17/21 01/17/22 cap] Budesonide/Formoterol Fumarate 2 puff IH Q12H 12/17/21 01/17/22 [Budesonide-Formoterol 160-4.5] Cyanocobalamin (Vitamin B-12) 2,500 mcg PO DAILY 12/17/21 01/17/22 [Vitamin B-12] Famotidine [Acid Controller] 20 mg PO HS 12/17/21 01/17/22 Promethazine HCl [Phenergan 25mg 25 mg PO Q6H PRN 12/17/21 01/17/22 tab] Vitamin E (Dl,Tocopheryl Acet) 180 mg PO DAILY 12/17/21 01/17/22 [Vitamin E] estradioL [Estradiol] 1 mg PO DAILY 12/17/21 01/17/22 Previous Rx's Medication Instructions Recorded fremanezumab-vfrm 225 mg/1.5 mL 225 mg SQ QMONTH #1.5 ml 01/14/22 subcutaneous auto-injector rizatriptan 10 mg disintegrating See Rx Instructions PO .COMPLEX 01/14/22 tablet PRN #10 tab alprazolam 1 mg tablet 1 mg PO QID #120 tab 01/17/22 hydrocodone 10 mg-acetaminophen 1 tab PO Q6H PRN 30 Days #120 tab 01/17/22 325 mg tablet Azithromycin [Z-Adam 250mg Tab*] 250 mg PO UD DOSE PK #6 tab 02/05/22 Benzonatate [Benzonatate 100mg 100 mg PO TIDP PRN #30 cap 02/05/22 cap] methylPREDNISolone [Medrol] 4 mg PO DIRECTED 6 Days #21 02/05/22 packet Allergies Allergy/AdvReac Type
--- NOTE | 2022-02-05 15:16 | XR_ITS ---
FINAL REPORT CLINICAL HISTORY: COVID positive x 1 wk, SOA, CP, cough worsened. Hx of COPD FINDINGS: Two views of the chest were obtained. The heart size and pulmonary vascularity are within normal limits. The mediastinum is normal. No acute pulmonary abnormality is identified. There is no pneumothorax. The bony thorax is intact. IMPRESSION: No active cardiopulmonary disease. Reviewed, Interpreted and Dictated by Lucas Prado III, MD Transcribed by Júnior Bonner Authenticated and [facility]
[2022-02-05 15:19] VITALS: BP 128/82; PULSE 71; RESP 16; TEMP 36.8; O2SAT 97; BMI 19.5
[2022-02-05 16:04] VITALS: BP 128/82; PULSE 71; RESP 16; TEMP 36.8
== END 2022-02-05 16:05 | disposition home or self-care (01) ==
PROVIDERS: Emergency Provider Nurse Practitioner Family; PCP Emergency Medicine
DX: U07.1 COVID-19 (principal); J02.9 Acute pharyngitis, unspecified; J44.9 Chronic obstructive pulmonary disease, unspecified; F17.210 Nicotine dependence, cigarettes, uncomplicated
CPT/HCPCS: 71046; 99212; C9803; G0463; U0003; U0005

== ENCOUNTER → 2022-02-22 11:17 | Outpatient (CLI) | payer OTHER, SELFPAY ==
[2022-02-22 13:57] LABS: Folate 2.43 ng/mL; Vitamin B12 > 1000 pg/mL (239-931)
== END ==
PROVIDERS: PCP Emergency Medicine; Visit Provider Nurse Practitioner Family
DX: F11.90 Opioid use, unspecified, uncomplicated (principal); G43.119 Migraine with aura, intractable, without status migrainosus; G44.209 Tension-type headache, unspecified, not intractable; G44.40 Drug-induced headache, not elsewhere classified, not intractable; G44.86 Cervicogenic headache; G47.9 Sleep disorder, unspecified; G89.29 Other chronic pain; J44.9 Chronic obstructive pulmonary disease, unspecified; M54.2 Cervicalgia
CPT/HCPCS: 36415; 82607; 82746

== ENCOUNTER → 2022-03-14 11:19 | Outpatient (CLI) | payer OTHER, SELFPAY ==
[2022-03-14 16:27] LABS: Amphetamine/Metha Screen,Urine Negative ng/ml (<1000); Barbiturates Screen,Urine Negative ng/ml (<200)
[2022-03-14 16:28] LABS: Benzodiazepines Screen,Urine Positive ng/ml (<200)
[2022-03-14 16:29] LABS: Cannabinoid Screen,Urine Negative ng/ml (<50); Cocaine Screen,Urine Negative ng/ml (<300)
[2022-03-14 16:30] LABS: Methadone Screen,Urine Negative ng/ml (<300); Opiate Screen,Urine Positive ng/ml (<300)
[2022-03-14 16:31] LABS: Phencyclidine Screen,Urine Negative ng/ml (<25)
== END ==
PROVIDERS: PCP Emergency Medicine; Visit Provider Nurse Practitioner Family
DX: Z79.899 Other long term (current) drug therapy (principal)
CPT/HCPCS: 80305

== ENCOUNTER → 2022-03-24 07:23 | Outpatient (CLI) | payer OTHER, SELFPAY ==
--- NOTE | 2022-03-24 | CA_ITS ---
APPROVED REPORT Exam: Pharmacologic Technologist: Maryuri Coleman, Ht: 5 ft 4 in Wt: 119 lbs BSA: 1.57 m2 HR: 57 bpm BP: 117/81 mmHg Medical History Medications: Alprazolam,,,,, Aspirin,,,,, Vitamin C,,,,, TopIRAMATE,,,,, SyMBICORT,,,,, Albuterol,,,,, Estradiol,,,,, ProMETHAZINE,,,,, Famotidine,,,,, BuPROPION,,,,, Suvorexant,,,,, UBrogepant,,,,, Allergies: sulfa Cardiac Risk Factors: Smoking Stress Test Details Test: LEXISCAN HR Resting HR: 61 bpm Max Heart Rate (APMHR): 160.002168 bpm Max HR Achieved: 96 bpm Target HR (85% APMHR): 136.812601 bpm % of APMHR: 60.00 BP Resting BP: 117/81 mmHg Max BP: 140/87 mmHg Recovery BP: 127.0/84.0 mmHg ECG Clinical Exercise duration: 04:00 min Highest Stage Achieved: Exercise capacity: 1.0 METs Stress ECG Conclusion PT HAD SOA, CHEST TIGHTNESS, AND LIGHT HEADACHE. <1.[address] CHANGES. Electronically signed by : Jose Daniel MD 03/24/2022 16:37:59
--- NOTE | 2022-03-24 07:24 | NM_ITS ---
APPROVED REPORT Exam: Nuclear Stress Test Indication: Chest pain, SOB, Tobacco use, Family history Patient Location: Outpatient Stress Tech: Maryuri Jimenes [place] Tech:Delia Hawk, ARRT, RT (R)(N) Ht: 5 ft 4 in Wt: 116 lbs Bra Size: 36B HR: 61 bpm BP: 117/81 mmHg BSA: 1.55 m2 TID: 1.09 BMI: 19.9 History: Chest pain, SOB, Tobacco use, Family history Procedure: Patient received a 0.4 mg of intravenous Lexiscan, resting heart rate 61 bpm, resting blood pressure 117/81 mmHg, with Lexiscan maximum heart rate achived was 96 bpm which is Less than 85 % of the maximum predicted heart rate and blood pressure was 140/87 mmHg. With Lexiscan, patient denied any complaint of chest pain. Electrocardiogram Resting electrocardiogram shows sinus rhythm, with Lexiscan less than 1.[address] segment depression noted from the baseline EKG. The EKG portion of the Lexiscan is nondiagnostic. Cardiac Stress and Resting SPECT Images: Cardiac Stress and Resting SPECT images were obtained using technetium 99m Myoview 29.0 mCi stress and 10.72 mCi at rest. Gated SPECT analysis of segmental wall motion and calculation of the ejection fraction also done, prone images were also obtained. Cardiac stress and rest SPECT images show uniform myocardial activity without segmental perfusion abnormality, computer derived ejection fraction is 63% with no regional wall motion abnormality, right ventricle is normal size and contractility. Conclusion: 1. The EKG portion of the Lexiscan is nondiagnostic. 2. No scintigraphic evidence of reversible ischemia seen, compared right ejection fraction 63% with no regional wall motion abnormality, right ventricle is normal size and contractility. 3. Normal Lexiscan Myoview study. Electronically signed by : Jose Daniel MD 03/24/2022 16:40:15
--- NOTE | 2022-03-24 09:48 | HMH.ITSHM ---
Current Home Medications as stated by this patient Selina Jarod or front desk representative. []VITAMIN E UBROGEPANT TOPIRAMATE SUVORENXANT PROMETHAZINE ALBUTEROL LEVOFLOXACIN HYDROCODONE FREMANEZUMAB FAMOTIDINE ESTRADIOL VITAMIN B12 BUPROPION BUDESONIDE ASA VITAMIN C ALPRAZOLAM
== END ==
PROVIDERS: PCP Emergency Medicine; Visit Provider Emergency Medicine
DX: R07.9 Chest pain, unspecified (principal)
CPT/HCPCS: 78452; 93017; A9502; J2785

== ENCOUNTER → 2022-04-11 15:11 | Outpatient (CLI) | payer OTHER, SELFPAY | PROVIDERS: PCP Emergency Medicine; Visit Provider Nurse Practitioner Family | DX: R06.02 Shortness of breath (principal); R07.89 Other chest pain | CPT/HCPCS: 94762 ==

== ENCOUNTER → 2022-06-06 16:40 | Outpatient (CLI) | payer OTHER, SELFPAY ==
[2022-06-06 16:32] LABS: Amphetamine/Metha Screen,Urine Negative ng/ml (<1000)
[2022-06-06 16:33] LABS: Barbiturates Screen,Urine Negative ng/ml (<200); Benzodiazepines Screen,Urine Positive ng/ml (<200)
[2022-06-06 16:34] LABS: Cannabinoid Screen,Urine Negative ng/ml (<50)
[2022-06-06 16:35] LABS: Cocaine Screen,Urine Negative ng/ml (<300); Methadone Screen,Urine Negative ng/ml (<300)
[2022-06-06 16:36] LABS: Opiate Screen,Urine Positive ng/ml (<300)
[2022-06-06 16:37] LABS: Phencyclidine Screen,Urine Negative ng/ml (<25)
== END ==
PROVIDERS: PCP Emergency Medicine; Visit Provider Emergency Medicine
DX: Z79.899 Other long term (current) drug therapy (principal)
CPT/HCPCS: 80305

== ENCOUNTER → 2022-08-11 23:30 | Outpatient (CLI) | payer OTHER, SELFPAY ==
[2022-08-11 18:16] LABS: Barbiturates Screen,Urine Negative ng/ml (<200); Cannabinoid Screen,Urine Negative ng/ml (<50)
[2022-08-11 18:17] LABS: Benzodiazepines Screen,Urine Positive ng/ml (<200); Cocaine Screen,Urine Negative ng/ml (<300)
[2022-08-11 18:18] LABS: Methadone Screen,Urine Negative ng/ml (<300)
[2022-08-11 18:19] LABS: Opiate Screen,Urine Positive ng/ml (<300); Phencyclidine Screen,Urine Negative ng/ml (<25)
[2022-08-13 18:48] LABS: Amphetamine/Metha Screen,Urine Negative ng/ml (<1000)
== END ==
PROVIDERS: PCP Emergency Medicine; Visit Provider Emergency Medicine
DX: Z79.899 Other long term (current) drug therapy (principal)
CPT/HCPCS: 80305

== ENCOUNTER → 2022-10-06 10:37 | Outpatient (CLI) | payer OTHER, SELFPAY ==
[2022-10-06 15:14] LABS: Amphetamine/Metha Screen,Urine Negative ng/ml (<1000); Barbiturates Screen,Urine Negative ng/ml (<200)
[2022-10-06 15:15] LABS: Benzodiazepines Screen,Urine Positive ng/ml (<200)
[2022-10-06 15:16] LABS: Cannabinoid Screen,Urine Negative ng/ml (<50); Cocaine Screen,Urine Negative ng/ml (<300)
[2022-10-06 15:17] LABS: Methadone Screen,Urine Negative ng/ml (<300); Opiate Screen,Urine Positive ng/ml (<300)
[2022-10-06 15:18] LABS: Phencyclidine Screen,Urine Negative ng/ml (<25)
== END ==
PROVIDERS: PCP Emergency Medicine; Visit Provider Emergency Medicine
DX: G89.29 Other chronic pain (principal)
CPT/HCPCS: 80305

== ENCOUNTER → 2022-12-02 15:00 | Outpatient (CLI) | payer OTHER, SELFPAY ==
[2022-12-02 15:20] LABS: Amphetamine/Metha Screen,Urine Negative ng/ml (<1000); Barbiturates Screen,Urine Negative ng/ml (<200)
[2022-12-02 15:21] LABS: Benzodiazepines Screen,Urine Positive ng/ml (<200)
[2022-12-02 15:22] LABS: Cannabinoid Screen,Urine Negative ng/ml (<50); Cocaine Screen,Urine Negative ng/ml (<300)
[2022-12-02 15:23] LABS: Methadone Screen,Urine Negative ng/ml (<300)
[2022-12-02 15:24] LABS: Opiate Screen,Urine Positive ng/ml (<300)
[2022-12-02 15:25] LABS: Phencyclidine Screen,Urine Negative ng/ml (<25)
== END ==
PROVIDERS: PCP Emergency Medicine; Visit Provider Emergency Medicine
DX: G89.29 Other chronic pain (principal); Z79.899 Other long term (current) drug therapy
CPT/HCPCS: 80305

== ENCOUNTER → 2022-12-10 12:45 | Outpatient (CLI) | payer OTHER, SELFPAY ==
--- NOTE | 2022-12-10 12:53 | CT_ITS ---
FINAL REPORT TECHNIQUE: Axial CT images of the chest were obtained without contrast. Low-dose protocol was utilized. This study was performed with techniques to keep radiation doses as low as reasonably achievable (ALARA). Individualized dose reduction techniques using automated exposure control or adjustment of mA and/or kV according to the patient's size were employed. CLINICAL HISTORY: lung cancer screening, smoker 2 ppd x 48 years. copd familly hx of lung cancer COMPARISON: 04/11/2020 FINDINGS: CT CHEST WITHOUT, LOW DOSE SCREENING CT Di Vol: 2.90 mGy DLP: 103.16 mGy*cm There is no axillary, mediastinal, or hilar adenopathy. The heart size is normal. There is no pleural or pericardial effusion. The lung windows show no suspicious mass or nodule. There is old calcified granulomatous disease. No acute lung disease. Limited images of the upper abdomen demonstrate stable hypodense mass in the right liver which is nonspecific. IMPRESSION: LR Category 1: 12 month follow-up low-dose chest CT is recommended. Reviewed, Interpreted and Dictated by Balaji Loredo MD Transcribed by Nati Key Authenticated and [facility]
--- NOTE | 2022-12-10 15:03 | PC.NURSE ---
PFT and 6 Minute Walk Test completed without incident. Albuterol 0.083% given via HHN, per protocol, Pt tolerated tx well.
== END ==
PROVIDERS: PCP Emergency Medicine; Visit Provider Internal Medicine Pulmonary Disease
DX: Z87.891 Personal history of nicotine dependence (principal); Z12.2 Encounter for screening for malignant neoplasm of respiratory organs; R06.09 Other forms of dyspnea
CPT/HCPCS: 71271; 94060; 94618; 94726; 94729

== ENCOUNTER → 2023-01-30 11:00 | Outpatient (CLI) | payer OTHER, SELFPAY ==
[2023-01-30 18:00] LABS: Basophils # 0.1 K/mm3 (0-0.2); Basophils % 1.1 % (0.1-2.0); Eosinophils # 0.4 K/mm3 (0.0-0.4); Eosinophils % 7.2 % (0.1-12.0); Hemoglobin 13.3 g/dL (12.2-16.2); Lymphocytes # 1.8 K/mm3 (0.7-4.5); Lymphocytes % 29.9 % (10-50); Mean Corpuscular HGB Conc 32.3 g/dL (31.8-35.4); Mean Corpuscular Hemoglobin 31.5 pg (27.0-31.2); Mean Corpuscular Volume 97.4 fl (81-99); Monocytes # 0.4 K/mm3 (0.1-1.0); Neutrophils # 3.3 K/mm3 (1.8-7.8); Neutrophils % 55.8 % (37.0-80.0); Platelet Count 211 K/mm3 (142-424); Red Blood Count 4.22 M/mm3 (4.20-5.40); White Blood Count 5.9 K/mm3 (4.8-10.8)
[2023-01-30 18:16] LABS: Barbiturates Screen,Urine Negative ng/ml (<200)
[2023-01-30 18:17] LABS: Alanine Aminotransferase 16 U/L (12-78); Albumin Level 4.1 g/dl (3.5-5.0); Albumin/Globulin Ratio 1.8 (1.1-1.8); Alkaline Phosphatase 66 U/L (38-126); Amphetamine/Metha Screen,Urine Negative ng/ml (<1000); Anion Gap 10.9 mEq/L (5-15); Aspartate Amino Transferase 21 U/L (14-36); Bilirubin,Total 0.2 mg/dl (0.2-1.3); Blood Urea Nitrogen 10 mg/dl (7-17); Carbon Dioxide 22 mmol/L (22.0-30.0); Chloride 113 mmol/L (98-107); Chol/HDL Ratio 2.1 (1-3.5); Cholesterol 180 mg/dl (140-200); Estimated Glomerular Filt Rate 64 ml/min (>60); GFR (African American) 77 ML/MIN (>60); Globulin 2.3 g/dL (1.3-3.2); Glucose 83 mg/dl (74-100); HDL Cholesterol 84 mg/dl (40-60); Potassium 3.9 mmoL/L (3.5-5.1); Sodium 142 mmol/L (136-145); Total Protein,Serum 6.4 g/dl (6.3-8.2); Triglycerides 52 mg/dl (30-150); VLDL Cholesterol 10 mg/dL (0-40)
[2023-01-30 18:18] LABS: Cannabinoid Screen,Urine Negative ng/ml (<50)
[2023-01-30 18:30] LABS: 25-OH Vitamin D, Total 42.4 ng/mL (30-100)
[2023-01-30 18:37] LABS: T4 (Thyroxine) 8.1 ug/dl (5.53-11.0)
[2023-01-30 18:40] LABS: Direct LDL Cholesterol 86.76 mg/dL (100-129)
[2023-01-30 18:50] LABS: Thyroid Stimulating Hormone 1.47 uIU/mL (0.465-4.68)
[2023-01-30 20:25] LABS: Benzodiazepines Screen,Urine Positive ng/ml (<200); Cocaine Screen,Urine Negative ng/ml (<300)
[2023-01-30 20:26] LABS: Methadone Screen,Urine Negative ng/ml (<300)
[2023-01-30 20:36] LABS: Opiate Screen,Urine Positive ng/ml (<300); Phencyclidine Screen,Urine Negative ng/ml (<25)
== END ==
PROVIDERS: PCP Emergency Medicine; Visit Provider Emergency Medicine
DX: Z00.00 Encounter for general adult medical examination without abnormal findings (principal); Z79.899 Other long term (current) drug therapy
CPT/HCPCS: 80053; 80061; 80305; 82306; 84436; 84443; 85025

== ENCOUNTER → 2023-03-04 15:58 | Outpatient (CLI) | payer OTHER, SELFPAY ==
[2023-03-04 17:53] LABS: Basophils # 0.1 K/mm3 (0-0.2); Basophils % 0.9 % (0.1-2.0); Eosinophils # 0.2 K/mm3 (0.0-0.4); Eosinophils % 3.2 % (0.1-12.0); Hematocrit 40.7 % (37.0-47.0); Hemoglobin 13.3 g/dL (12.2-16.2); Lymphocytes # 1.9 K/mm3 (0.7-4.5); Lymphocytes % 27.3 % (10-50); Mean Corpuscular HGB Conc 32.7 g/dL (31.8-35.4); Mean Corpuscular Hemoglobin 31.8 pg (27.0-31.2); Mean Corpuscular Volume 97.1 fl (81-99); Mean Platelet Volume 10.5 fl (7.4-10.4); Monocytes # 0.4 K/mm3 (0.1-1.0); Neutrophils # 4.3 K/mm3 (1.8-7.8); Neutrophils % 62.6 % (37.0-80.0); Platelet Count 234 K/mm3 (142-424); Red Cell Distribution Width 12.8 % (11.5-17.5); White Blood Count 6.8 K/mm3 (4.8-10.8)
[2023-03-04 18:22] LABS: Alanine Aminotransferase 15 U/L (12-78); Albumin Level 4.4 g/dl (3.5-5.0); Alkaline Phosphatase 67 U/L (38-126); Anion Gap 14.7 mEq/L (5-15); Aspartate Amino Transferase 22 U/L (14-36); Bilirubin,Indirect 0.3 mg/dL (0.0-0.9); Bilirubin,Total 0.3 mg/dl (0.2-1.3); Bilirubin,Unconjugated 0.4 mg/dL (0.0-1.1); Blood Urea Nitrogen 9 mg/dl (7-17); Calcium 9.4 mg/dl (8.4-10.2); Carbon Dioxide 24 mmol/L (22.0-30.0); Chloride 104 mmol/L (98-107); Chol/HDL Ratio 2.1 (1-3.5); Cholesterol 186 mg/dl (140-200); Estimated Glomerular Filt Rate 56 ml/min (>60); GFR (African American) 68 ML/MIN (>60); Glucose 75 mg/dl (74-100); HDL Cholesterol 89 mg/dl (40-60); Magnesium 1.8 mg/dl (1.6-2.3); Potassium 4.7 mmoL/L (3.5-5.1); Sodium 138 mmol/L (136-145); Total Protein,Serum 6.8 g/dl (6.3-8.2); Triglycerides 57 mg/dl (30-150); VLDL Cholesterol 11 mg/dL (0-40)
[2023-03-04 18:31] LABS: NT Pro Brain Natriuretic Pep. 34.5 pg/mL (0-125)
[2023-03-04 18:35] LABS: Direct LDL Cholesterol 83.06 mg/dL (100-129)
[2023-03-04 18:37] LABS: Free T4 (Free Thyroxine) 0.81 ng/dl (0.78-2.19)
[2023-03-04 18:52] LABS: Thyroid Stimulating Hormone 1.89 uIU/mL (0.465-4.68)
== END ==
PROVIDERS: PCP Emergency Medicine; Visit Provider Internal Medicine
DX: I20.8 Other forms of angina pectoris (principal); R06.09 Other forms of dyspnea; R00.2 Palpitations; G43.909 Migraine, unspecified, not intractable, without status migrainosus; F41.9 Anxiety disorder, unspecified; J44.9 Chronic obstructive pulmonary disease, unspecified
CPT/HCPCS: 36415; 80048; 80061; 80076; 83735; 83880; 84439; 84443; 85025; 93270

== ENCOUNTER → 2023-03-12 07:34 | Outpatient (CLI) | payer OTHER, SELFPAY ==
--- NOTE | 2023-03-12 07:35 | US_ITS ---
FINAL REPORT CLINICAL HISTORY: nausea, abdominal pain COMPARISON: None FINDINGS: Sonographic images of the abdomen were obtained. The liver has an unremarkable appearance with normal echogenicity. The gallbladder has an unremarkable appearance without evidence of gallstones. There is no evidence of biliary ductal dilatation. The common hepatic duct measures 9 mm, which is of questionable significance in a patient on chronic pain medications. Pancreas is partially obscured. The spleen size is normal. The right kidney measures 9.7 cm in length. The left kidney measures 11.2 cm in length. There is normal renal echogenicity. There is no evidence of hydronephrosis. The aorta has an unremarkable appearance. Limited images of the inferior vena cava are unremarkable. IMPRESSION: 9 mm common hepatic duct of questionable significance in a patient on chronic pain medications. If indicated, nuclear medicine hepatobiliary scan or MRCP may be helpful. Reviewed, Interpreted and Dictated by Lucas Prado III, MD Transcribed by Nati Key Authenticated and [facility]
== END ==
PROVIDERS: PCP Emergency Medicine; Visit Provider Internal Medicine
DX: R10.9 Unspecified abdominal pain (principal)
CPT/HCPCS: 76700

== ENCOUNTER 2023-03-16 08:04 | Outpatient (CLI) | payer OTHER, SELFPAY ==
[2023-03-16 09:27] VITALS: BP 127/80; PULSE 64; RESP 18; O2SAT 98
[2023-03-16 09:50] VITALS: BP 138/78; PULSE 58; RESP 18; O2SAT 100
[2023-03-16 10:00] VITALS: BP 102/72; PULSE 64; RESP 18; O2SAT 100
[2023-03-16 10:05] VITALS: BP 95/66; PULSE 67; RESP 18; O2SAT 100
[2023-03-16 10:35] VITALS: BP 117/68; PULSE 79; RESP 18; O2SAT 99
[2023-03-16 10:55] VITALS: BP 123/67; PULSE 56; RESP 19; O2SAT 99
== END 2023-03-16 11:07 | disposition home or self-care (01) ==
PROVIDERS: PCP Emergency Medicine; Visit Provider Internal Medicine
DX: R06.09 Other forms of dyspnea (principal); R00.2 Palpitations; I20.8 Other forms of angina pectoris; F41.9 Anxiety disorder, unspecified; G43.909 Migraine, unspecified, not intractable, without status migrainosus; J44.9 Chronic obstructive pulmonary disease, unspecified
CPT/HCPCS: 75574; Q9967

== ENCOUNTER → 2023-03-25 10:35 | Outpatient (CLI) | payer OTHER, SELFPAY ==
--- NOTE | 2023-03-25 10:37 | CA_ITS ---
APPROVED REPORT EXAM: Comprehensive 2D, Doppler, and color-flow Echocardiogram Curtain Cutter Hand: Magaly Mattson RT(R) Ht: 5 ft 4 in Wt: 120lbs BSA: 1.57 BP: 125/82 mmHg Indications: CP, COPD, Smoker, palpitations, SOB. 2D Dimensions LVOT 1.82 cm (M/F) 1.5-2.5 LVEF (Gonzalez's) 67.00 % F: 54 - 74 LV Volume 82.40 mL F: 46 - 106 LV Volume Index 52.15 mL/m2 F: 29 - 61 LA Volume 20.80 mL LA Volume Index 13.16 mL/m2 (M/F) 16-34 M-Mode Dimensions RVDd 2.19 cm (0.9-2.6) LA Diam 3.07 cm (1.9-4.0) LVDd 4.92 cm (3.5-5.7) Ao Diam 2.39 cm (2.0-3.7) LVDs 3.67 cm (3.5-5.7) IVSd 0.59 cm (0.6-1.1) PWd 0.49 cm (0.6-1.1) EF (Teich) 50.00% FS 25.40% EDV (Teich) 113.90 mL ESV (Teich) 57.00 mL LV Diastology E Decel Time 243.00 (160-240 msec) E/A Ratio 1.4 MED E' 10.80 (< 7 cm/sec) E'/MED E' Ratio 7.71 (>14) LAT E' 12.90 (<10 cm/sec) E/LAT E' Ratio 6.46 (>14) Mitral Valve MV E Max Sandro. 83.00 (40-130 cm/s) MV A Velocity 60.00 (40-130 cm/s) E/A Ratio 1.40 MV Decel. Time 243.00 (160-240 ms) MV PHT 71.00 ms Tricuspid Valve TR P. Velocity 310.00 cm/s RAP Estimate 10.00 mmHg RVSP 48.50 mmHg Left Ventricle The left ventricle is normal size. The left ventricular systolic function is normal. The left ventricular ejection fraction is within the normal range. There is normal left ventricular wall thickness. There is normal LV segmental wall motion. The left ventricular diastolic function is normal. LVEF is 55%. Right Ventricle The right ventricle is normal size. The right ventricular systolic function is normal. Atria The left atrium size is normal. Prominent echodensity in the RA cavity. This most likely reflects chiari network (normal finding). There is no Doppler evidence of interatrial shunt. Aortic Valve The aortic valve is mildly thickened. There is no aortic valvular stenosis. Trace aortic regurgitation. Mitral Valve The mitral valve is mildly thickened. No evidence of mitral valve stenosis. Mild mitral regurgitation. The MR jet is eccentric and is posteriorly directed. There is no evidence of mitral valve prolapse. Tricuspid Valve The tricuspid valve leaflets are thin and pliable. Mild tricuspid regurgitation. RVSP is 30-35 mmHg. Pulmonic Valve The pulmonary valve is normal in structure. Trace pulmonic regurgitation. Great Vessels The aortic root is normal in size. The ascending aorta is not well visualized. IVC is normal in size and collapses >50% with inspiration. Pericardium There is no pericardial effusion. Other Information Study Quality: Fair Conclusion Normal biventricular systolic function. Normal biatrial size. Prominent echodensity in the RA cavity. This most likely reflects chiari network (normal finding). Mild MR, mild TR Elevated RVSP 30-35 mmHg. Electronically signed by : Becca Mccann MD 03/28/2023 13:06:26
== END ==
PROVIDERS: PCP Emergency Medicine; Visit Provider Internal Medicine
DX: R06.09 Other forms of dyspnea (principal); R00.2 Palpitations; I20.9 Angina pectoris, unspecified; G43.909 Migraine, unspecified, not intractable, without status migrainosus; J44.9 Chronic obstructive pulmonary disease, unspecified; F41.9 Anxiety disorder, unspecified
CPT/HCPCS: 93306

== ENCOUNTER → 2023-03-27 12:22 | Outpatient (CLI) | payer OTHER, SELFPAY ==
[2023-03-27 12:06] LABS: Phencyclidine Screen,Urine Negative ng/ml (<25)
[2023-03-27 12:07] LABS: Opiate Screen,Urine Positive ng/ml (<300)
[2023-03-27 12:08] LABS: Benzodiazepines Screen,Urine Positive ng/ml (<200)
[2023-03-27 12:09] LABS: Amphetamine/Metha Screen,Urine Negative ng/ml (<1000); Barbiturates Screen,Urine Negative ng/ml (<200)
[2023-03-27 12:12] LABS: Methadone Screen,Urine Negative ng/ml (<300)
[2023-03-27 12:13] LABS: Cannabinoid Screen,Urine Negative ng/ml (<50); Cocaine Screen,Urine Negative ng/ml (<300)
== END ==
PROVIDERS: PCP Nurse Practitioner Family; Visit Provider Nurse Practitioner Family
DX: Z79.899 Other long term (current) drug therapy (principal)
CPT/HCPCS: 80305

== ENCOUNTER 2023-04-20 08:05 | Day surgery (SDC) | payer OTHER, SELFPAY ==
[2023-04-20] VITALS (12 sets, daily range): BP systolic 122–196; BP diastolic 81–130; PULSE 56–76; RESP 18–20; O2SAT 95–100; BMI 20.7
--- NOTE | 2023-04-20 07:15 | IR_ITS ---
APPROVED REPORT Patient Location: Outpatient PROCEDURES Left heart catheterization Left ventriculogram Selective coronary angiogram Stent deployment in the proximal LAD INDICATION Coronary artery disease, Angina pectoris Informed consent was obtained prior to the procedure. COMPLICATIONS None Estimated Blood Loss: Less than 10 ML TECHNIQUE One percent lidocaine used to anesthetize the right anterior aspect of the wrist. The right radial artery was accessed via the Seldinger technique. A 6 Finnish sheath was placed in the right radial artery. 2.5 mg of Verapamil, 800 mcg of nitroglycerin, 1mg Lidocaine and 5000 U Heparin were given through the arterial sheath. The papa catheter was also used to perform left heart catheterization, left ventriculogram and selective coronary angiogram. At the end of the diagnostic angiogram therapeutic heparin was administered giving a therapeutic ACT and the guide catheter was placed in left main artery followed by Choice PT to support wire down the LAD. A 3 mm x 18 mm [place] frontier stent was deployed at 12 jose francisco reducing the stenosis. Intravascular ultrasound probe was advanced which demonstrated there was undersizing. A 3 mm x 8 mm noncompliant balloon was then deployed at 20 jose francisco in the ostial proximal segment of the stent. ELEN-3 flow was present before and after the procedure. After achieving excellent angiographic results the apparatus was removed the sheath was removed good hemostasis was achieved using TR banding patient was transferred to the postop holding in stable condition ANGIOGRAPHIC RESULTS The left main artery Angiographically is patent however with IVUS there is moderate 30 to 40% atheromatous plaque throughout the left main artery The left anterior descending artery Is a proximal 20% followed by an eccentric 80 to 90% stenosis immediately after a large first diagonal artery the remaining vessel is widely patent. The first diagonal artery has an ostial 30% followed by a proximal eccentric 50% stenosis The circumflex artery Nondominant with mild atheromatous plaque confined mostly to the ostium of approximately 10 to 20% The right coronary artery There is a dominant blood vessel and has proximal 40% stenosis with a mid vessel 50 to 60% stenosis and an additional distal 50% stenosis The OLIVO ventriculogram reveals Normal 60% The left ventricular end-diastolic pressure 10 mmHg IMPRESSION Severe proximal LAD disease as described above Successful stenting the proximal LAD severe disease reduced to 0% with 1 drug-eluting stent Persistent moderate to severe stenosis in the right coronary artery which at this point is best treated medically unless patient continues with recalcitrant angina. Normal ejection fraction Normal left ventricular end-diastolic pressure PLAN 1. Plavix 75 daily plus aspirin 81 mg daily 2. Avoidance of tobacco products 3. LDL less than 55 to be achieved with high intensity statin 4. Maximize antianginal medication 5. Medical management for the right coronary artery. I am concerned this artery would require extensive revascularization requiring multiple stents 6. Cardiac rehabilitation Electronically signed by : Ehsan Conti MD 04/20/2023 11:45:11
--- NOTE | 2023-04-20 08:10 | CA_ITS ---
FINAL REPORT TECHNIQUE: Color Doppler, duplex Doppler and cristina scale sonography of the bilateral neck arterial vasculature was performed. Velocities were measured in the carotid arteries. Stenosis evaluation based on the validated velocity criteria. CLINICAL HISTORY: facial numbness COMPARISON: None FINDINGS: The peak systolic velocity of the right common carotid artery is 98 cm/s. The peak systolic velocity of the right internal carotid artery is 91 cm/s and end diastolic velocity 42 cm/s. The ICA/CCA ratio is 1.2. A mild amount of plaque is present. The right external carotid artery is patent. The right vertebral artery is mismarked but is patent with antegrade flow. The peak systolic velocity of the left common carotid artery is 84 cm/s. The peak systolic velocity of the left internal carotid artery is 92 cm/s and end diastolic velocity 43 cm/s. The ICA/CCA ratio is 1.1. A mild amount of plaque is present. The left external carotid artery is patent.The left vertebral artery is patent with antegrade flow. IMPRESSION: Less than 50% bilateral carotid stenoses. Bilateral patent vertebral arteries with antegrade flow. If indicated, CTA or MRA could further evaluate. Reviewed, Interpreted and Dictated by Lucas Prado III, MD Transcribed by Nati Key Authenticated and . [facility]
[2023-04-20 09:09] LABS: Basophils # 0.1 K/mm3 (0-0.2); Basophils % 0.8 % (0.1-2.0); Eosinophils # 0.2 K/mm3 (0.0-0.4); Hematocrit 41.1 % (37.0-47.0); Hemoglobin 14.1 g/dL (12.2-16.2); Lymphocytes # 1.5 K/mm3 (0.7-4.5); Lymphocytes % 20.4 % (10-50); Mean Corpuscular HGB Conc 34.3 g/dL (31.8-35.4); Mean Corpuscular Hemoglobin 33.5 pg (27.0-31.2); Mean Corpuscular Volume 97.5 fl (81-99); Mean Platelet Volume 9.8 fl (7.4-10.4); Monocytes # 0.4 K/mm3 (0.1-1.0); Monocytes % 5.7 % (1.7-9.3); Neutrophils % 70.1 % (37.0-80.0); Platelet Count 234 K/mm3 (142-424); Red Blood Count 4.21 M/mm3 (4.20-5.40); Red Cell Distribution Width 12.7 % (11.5-17.5); White Blood Count 7.2 K/mm3 (4.8-10.8)
[2023-04-20 09:15] LABS: Anion Gap 11.4 mEq/L (5-15); Blood Urea Nitrogen 4 mg/dl (7-17); Calcium 9.3 mg/dl (8.4-10.2); Carbon Dioxide 27 mmol/L (22.0-30.0); Chloride 102 mmol/L (98-107); Creatinine Clearance Estimated 51 mL/min (50-200); Estimated Glomerular Filt Rate 64 ml/min (>60); GFR (African American) 77 ML/MIN (>60); Glucose 86 mg/dl (74-100); Potassium 3.4 mmoL/L (3.5-5.1); Sodium 137 mmol/L (136-145)
[2023-04-20 14:49] LABS: CATHL Activated Clotting Time 266 SEC (74-125)
== END 2023-04-20 15:40 | disposition home or self-care (01) ==
PROVIDERS: PCP Emergency Medicine; Visit Provider Internal Medicine
DX: I25.118 Atherosclerotic heart disease of native coronary artery with other forms of angina pectoris (principal); G43.909 Migraine, unspecified, not intractable, without status migrainosus; F41.9 Anxiety disorder, unspecified; J44.9 Chronic obstructive pulmonary disease, unspecified; R93.89 Abnormal findings on diagnostic imaging of other specified body structures; F17.210 Nicotine dependence, cigarettes, uncomplicated; Z79.899 Other long term (current) drug therapy
CPT/HCPCS: 80048; 85025; 85347; 92928; 93458; 93880; 99152; 99153; C1725; C1760; C1769; C1876; C9600; J1644; Q9967

== ENCOUNTER → 2023-04-30 12:03 | Outpatient (CLI) | payer OTHER, SELFPAY | PROVIDERS: PCP Emergency Medicine; Visit Provider Internal Medicine | DX: I25.118 Atherosclerotic heart disease of native coronary artery with other forms of angina pectoris (principal); I10 Essential (primary) hypertension; R00.2 Palpitations; R06.09 Other forms of dyspnea; R20.0 Anesthesia of skin; J44.9 Chronic obstructive pulmonary disease, unspecified; R10.9 Unspecified abdominal pain; R93.89 Abnormal findings on diagnostic imaging of other specified body structures; F41.9 Anxiety disorder, unspecified; Z72.0 Tobacco use | CPT/HCPCS: 93225 ==

== ENCOUNTER → 2023-05-07 08:56 | Outpatient (CLI) | payer OTHER, SELFPAY ==
--- NOTE | 2023-05-07 09:01 | CA_ITS ---
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 Limited windows were obtained. The left ventricle appears normal in size and systolic function. There is normal LV wall thickness. No regional wall motion abnormalities are noted. LVEF is 65%. The right ventricle appears grossly normal in size and function. Both atria appear normal in size. Electronically signed by : Becca Mccann MD 05/09/2023 21:39:11
== END ==
PROVIDERS: PCP Emergency Medicine; Visit Provider Internal Medicine
DX: I25.119 Atherosclerotic heart disease of native coronary artery with unspecified angina pectoris (principal); R20.0 Anesthesia of skin; R06.09 Other forms of dyspnea; R00.2 Palpitations; R93.89 Abnormal findings on diagnostic imaging of other specified body structures; R10.9 Unspecified abdominal pain; J44.9 Chronic obstructive pulmonary disease, unspecified; F41.9 Anxiety disorder, unspecified; Z72.0 Tobacco use
CPT/HCPCS: 93308

== ENCOUNTER → 2023-05-11 12:29 | Outpatient (CLI) | payer OTHER, SELFPAY ==
[2023-05-14 21:35] LABS: Pancreatic Elastase, Fecal 104 (>200)
[2023-05-16 00:10] LABS: Calprotectin, Fecal 76 ug/g (0-120)
== END ==
PROVIDERS: PCP Emergency Medicine; Visit Provider Nurse Practitioner
DX: R10.9 Unspecified abdominal pain (principal); R19.5 Other fecal abnormalities; R19.7 Diarrhea, unspecified; R10.10 Upper abdominal pain, unspecified
CPT/HCPCS: 82656; 83993

== ENCOUNTER → 2023-05-25 16:17 | Outpatient (CLI) | payer OTHER, SELFPAY ==
[2023-05-25 16:13] LABS: Barbiturates Screen,Urine Negative ng/ml (<200)
[2023-05-25 16:14] LABS: Amphetamine/Metha Screen,Urine Negative ng/ml (<1000); Benzodiazepines Screen,Urine Positive ng/ml (<200)
[2023-05-25 16:15] LABS: Cocaine Screen,Urine Negative ng/ml (<300)
[2023-05-25 16:16] LABS: Methadone Screen,Urine Negative ng/ml (<300)
[2023-05-25 16:17] LABS: Opiate Screen,Urine Positive ng/ml (<300)
[2023-05-25 16:18] LABS: Phencyclidine Screen,Urine Negative ng/ml (<25)
[2023-05-25 16:35] LABS: Cannabinoid Screen,Urine Negative ng/ml (<50)
== END ==
PROVIDERS: PCP Emergency Medicine; Visit Provider Emergency Medicine
DX: Z79.899 Other long term (current) drug therapy (principal)
CPT/HCPCS: 80305

== ENCOUNTER → 2023-06-30 11:49 | Outpatient (CLI) | payer OTHER, SELFPAY ==
[2023-06-30 13:20] VITALS: BMI 21.7
== END ==
PROVIDERS: PCP Internal Medicine; Visit Provider Nurse Practitioner
DX: K86.81 Exocrine pancreatic insufficiency (principal); R19.7 Diarrhea, unspecified
CPT/HCPCS: 97802

== ENCOUNTER 2023-07-22 18:41 | Outpatient (CLI) | payer OTHER, SELFPAY ==
[2023-07-22 20:04] LABS: Barbiturates Screen,Urine Negative ng/ml (<200); Benzodiazepines Screen,Urine Positive ng/ml (<200)
[2023-07-22 20:05] LABS: Amphetamine/Metha Screen,Urine Negative ng/ml (<1000)
[2023-07-22 20:06] LABS: Cannabinoid Screen,Urine Negative ng/ml (<50); Cocaine Screen,Urine Negative ng/ml (<300)
[2023-07-22 20:07] LABS: Methadone Screen,Urine Negative ng/ml (<300)
[2023-07-22 20:08] LABS: Opiate Screen,Urine Positive ng/ml (<300); Phencyclidine Screen,Urine Negative ng/ml (<25)
[2023-07-27 15:09] LABS: Alprazolam Positive (.); Benzodiazepines Positive ng/mL (Cutoff=100); Clonazepam Negative (Cutoff=100); Codeine Negative (Cutoff=100); Flurazepam Negative (Cutoff=100); Hydrocodone Positive (.); Hydrocodone Confirm 487 ng/mL (Cutoff=100); Hydromorphone Negative (Cutoff=100); Lorazepam Negative (Cutoff=100); Midazolam Negative (Cutoff=100); Morphine Negative (Cutoff=100); Opiates Positive (.); Temazepam Negative (Cutoff=100); Triazolam Negative (Cutoff=100)
== END 2023-07-22 23:59 ==
LOC: LAB.DROPOF 18:42
PROVIDERS: PCP Nurse Practitioner Family; Visit Provider Nurse Practitioner Family
DX: Z79.899 Other long term (current) drug therapy (principal)
CPT/HCPCS: 80307; 80346; 80361; G0480

== ENCOUNTER 2023-09-16 11:40 | Day surgery (SDC) | payer OTHER, SELFPAY ==
[2023-09-16] MEDS: LACTATED RINGERS 1000ML 1,000 ML 25 ML IV (12:22)
[2023-09-16 12:29] VITALS: BP 128/74; PULSE 81; RESP 18; TEMP 36.9; O2SAT 97; BMI 22.3
--- NOTE | 2023-09-16 12:49 | EXP.ANES.CKL ---
[facility] Disclaimer: The information contained in this section may have been updated after the patient was seen, as this information can be updated by other users. Medical History Coronary artery disease Abnormal computed tomography angiography (CTA) Common bile duct dilation Nausea Abdominal pain Palpitations Typical angina COPD mixed type Lung nodule seen on imaging study Pulmonary emphysema Smoking greater than 30 pack years Dyspnea on exertion Surgical History Hx of heart artery stent History of appendectomy History of bilateral breast implants History of hysterectomy Family History Other Asthma COPD (chronic obstructive pulmonary disease) Diabetes Family history of cancer Family history of diabetes mellitus type I Family history of diabetes mellitus type II Family history of hyperlipidemia Family history of hypertension Family history of myocardial infarction Social History Smoking Status: Current every day smoker tobacco type: cigarettes packs per day: 1 alcohol intake: never substance use type: denies use current occupational status: unemployed Travel in the last 8 weeks: None [facility] Anesthesia Checklist Patient Identification Patient Identification: Arm Band and Verbal (Name & ) Structural Data Admitted From: Home Planned Operative Procedure/s: E/C Consent for Planned Operative Procedure(s) Verified: Yes NPO Status Verified Time NPO: 00:00 Additional verifications Anesthesia Reactions: No Hx Blood Transfusions: No Blood Transfusion Reaction: No Airway Assessment Mallampati Score:: Class III C-Spine Mobility Assessed: Yes TMJ Mobility Assessed: Yes Dentition: Dentures-poor fitting Neurological Assessment Level of Consciousness: Awake Hx Seizures: No Numbness or tingling in extremities: No Anesthesia Plan Anesthesia Risk discussed: Yes Anesthesia Plan: Verified ASA Class: III Anesthesia Type: MAC
[2023-09-16 13:38] VITALS: O2SAT 98
[2023-09-16 14:12] VITALS: BP 96/66; PULSE 71; RESP 17; TEMP 36.2; O2SAT 99
--- NOTE | 2023-09-16 14:12 | HMH.SCOPE ---
Procedure: Date: 09/16/23 Patient Date of :: 1960 Procedure Performed:: Colonoscopy Indications:: The patient is a 63-year-old female who presents for screening colonoscopy for colorectal cancer. The patient has also had diarrhea symptoms. Patient reports having had improvement in diarrhea symptom with starting Creon for exocrine pancreatic insufficiency. Performing Provider:: Jayson Greenwood MD Referring Provider:: Heather Wright APRN. Gastroenterology Sedation:: See RN records Procedure:: After placing the patient in the left lateral decubitus position, the colonoscopy was gently inserted into the rectum and under direct visualization advanced to the cecum which was identified by transillumination in the right lower quadrant, identification of the ileocecal valve, appendiceal orifice, and cecal strap. Color, texture, mucosa, and anatomy of the colon were carefully examined with the scope. Findings:: There was a small sessile (4 to 6 mm) sessile polyp in the descending colon. The polyp was removed by cold snare polypectomy. The polyp was retrieved. There was a diminutive polyp in the rectum. The polyp was removed with a cold forceps. The quality of the bowel preparation was fair in the ascending colon, sigmoid colon, and descending colon. Time was spent irrigating and cleansing mucosa. The colon was tortuous. Small internal hemorrhoids were seen on forward view (the colonoscope would not retroflex). Random colon biopsies were obtained throughout the colon. Recommendations:: Await pathology result Repeat colonoscopy in 5 years Complications:: None Estimated blood obtained (mL): 0 Colonoscopy Component Colonoscopy Component Was a colonoscopy performed during today's procedure?: Yes Recommended follow up colonoscopy of at least 10 years?: Yes
--- NOTE | 2023-09-16 14:16 | HMH.SCOPE ---
Procedure: Date: 09/16/23 Patient Date of :: 1960 Procedure Performed:: EGD Indications:: The patient is a 63-year-old who presents for EGD evaluation of upper abdominal pain. Performing Provider:: Jayson Greenwood MD Referring Provider:: Heather Wright APRN gastroenterology Sedation:: See RN records Procedure:: The gastroscope was gently passed through the incisoral orifice into the oral cavity and under direct visualization the esophagus was intubated. The endoscope was passed down the esophagus, through the stomach, and into the duodenum. Color, texture, mucosa, and anatomy of the esophagus, stomach, and duodenum were carefully examined with the scope. Findings:: The esophagus appeared normal. The Z-line was regular and measured at 39 cm. There was the finding of mild inflammation in the stomach erythema. Biopsies were obtained from the antrum and body. Examined duodenum appeared normal. Recommendations:: Await pathology result Follow-up in office with referring provider as previously scheduled Complications:: None Estimated blood obtained (mL): 0 Colonoscopy Component Colonoscopy Component Was a colonoscopy performed during today's procedure?: No
[2023-09-16 14:22] VITALS: BP 114/85; PULSE 69; RESP 16; O2SAT 99
[2023-09-16 14:32] VITALS: BP 114/85; PULSE 71; RESP 18; O2SAT 99
[2023-09-16 14:42] VITALS: BP 106/73; PULSE 66; RESP 18; O2SAT 100
== END 2023-09-16 15:05 | disposition home or self-care (01) ==
PROVIDERS: PCP Nurse Practitioner Family; Visit Provider Internal Medicine
PROC: 0DJ08ZZ Inspection of Upper Intestinal Tract, Via Natural or Artificial Opening Endoscopic (ICD-10-PCS; CPT 43235; principal; 2023-09-16 13:00)
DX: R10.10 Upper abdominal pain, unspecified (principal); K29.50 Unspecified chronic gastritis without bleeding; R19.7 Diarrhea, unspecified; K86.81 Exocrine pancreatic insufficiency; K64.8 Other hemorrhoids; D12.4 Benign neoplasm of descending colon
CPT/HCPCS: 43239; 45385; 45380

== ENCOUNTER 2023-10-07 12:43 | Outpatient (CLI) | payer OTHER, SELFPAY ==
--- NOTE | 2023-10-07 12:47 | MM_ITS ---
PROCEDURE INFORMATION: Exam: MG Bilateral Screening 3D Mammography Exam date and time: 10/07/2023 12:45 PM Age: 63 years old Clinical indication: Screening mammogram TECHNIQUE: Imaging protocol: Bilateral Screening tomosynthesis and 2D mammography including computer-aided detection (CAD) when performed. COMPARISON: MG MM DIG SC MAMM IMPLANT BI CAD 11/29/2021 3:11 PM FINDINGS: MAMMOGRAPHY: Breast composition: There are scattered areas of fibroglandular density. Mass: None. Architectural distortion: No new or suspicious architectural distortion. Calcifications: No new or suspicious calcifications are present Asymmetric density: No new or suspicious asymmetric density is present Skin thickening: None. Axillary adenopathy: None. Implants: Subpectoral saline augmentation implants are present IMPRESSION: No mammographic evidence of malignancy. Recommend annual screening mammography unless otherwise clinically indicated. ASSESSMENT: BI-RADS category 2: Benign.
== END 2023-10-07 23:59 ==
LOC: RAD 12:43
PROVIDERS: PCP Family Medicine; Visit Provider Family Medicine
DX: Z12.31 Encounter for screening mammogram for malignant neoplasm of breast (principal)
CPT/HCPCS: 77063; 77067

== ENCOUNTER 2023-12-10 14:06 | Outpatient (CLI) | payer OTHER, SELFPAY ==
[2023-12-10 14:28] LABS: Basophils # 0.1 K/mm3 (0-0.2); Eosinophils # 0.3 K/mm3 (0.0-0.4); Eosinophils % 5.6 % (0.1-12.0); Hematocrit 37.3 % (37.0-47.0); Hemoglobin 11.3 g/dL (12.2-16.2); Lymphocytes # 1.4 K/mm3 (0.7-4.5); Lymphocytes % 24.5 % (10-50); Mean Corpuscular HGB Conc 30.4 g/dL (31.8-35.4); Mean Corpuscular Hemoglobin 28.4 pg (27.0-31.2); Mean Corpuscular Volume 93.2 fl (81-99); Mean Platelet Volume 10.5 fl (7.4-10.4); Monocytes # 0.4 K/mm3 (0.1-1.0); Monocytes % 6.7 % (1.7-9.3); Neutrophils # 3.6 K/mm3 (1.8-7.8); Neutrophils % 62.2 % (37.0-80.0); Platelet Count 209 K/mm3 (142-424); Red Cell Distribution Width 14.4 % (11.5-17.5); White Blood Count 5.8 K/mm3 (4.8-10.8)
[2023-12-10 15:08] LABS: Alanine Aminotransferase 19 U/L (12-78); Albumin Level 3.9 g/dl (3.5-5.0); Alkaline Phosphatase 68 U/L (38-126); Aspartate Amino Transferase 32 U/L (14-36); Bilirubin,Indirect 0.4 mg/dL (0.0-0.9); Bilirubin,Total 0.4 mg/dl (0.2-1.3); Bilirubin,Unconjugated 0.3 mg/dL (0.0-1.1); Blood Urea Nitrogen 9 mg/dl (7-17); Calcium 9.3 mg/dl (8.4-10.2); Carbon Dioxide 25 mmol/L (22.0-30.0); Chloride 105 mmol/L (98-107); Chol/HDL Ratio 1.5 (1-3.5); Cholesterol 138 mg/dl (140-200); Estimated Glomerular Filt Rate 46 ml/min (>60); GFR (African American) 55 ML/MIN (>60); Glucose 84 mg/dl (74-100); HDL Cholesterol 95 mg/dl (40-60); Sodium 138 mmol/L (136-145); Total Protein,Serum 6.3 g/dl (6.3-8.2); Triglycerides 53 mg/dl (30-150); VLDL Cholesterol 11 mg/dL (0-40)
[2023-12-10 15:19] LABS: Direct LDL Cholesterol 53.34 mg/dL (100-129)
[2023-12-10 15:24] LABS: Free T4 (Free Thyroxine) 0.86 ng/dl (0.78-2.19)
[2023-12-10 15:39] LABS: Thyroid Stimulating Hormone 1.33 uIU/mL (0.465-4.68)
== END 2023-12-10 23:59 | disposition home or self-care (01) ==
LOC: LAB 14:06
PROVIDERS: PCP Family Medicine; Visit Provider Internal Medicine
DX: R06.00 Dyspnea, unspecified (principal); J44.9 Chronic obstructive pulmonary disease, unspecified; F41.9 Anxiety disorder, unspecified; R00.2 Palpitations; R93.89 Abnormal findings on diagnostic imaging of other specified body structures; I25.118 Atherosclerotic heart disease of native coronary artery with other forms of angina pectoris; I11.9 Hypertensive heart disease without heart failure; F17.210 Nicotine dependence, cigarettes, uncomplicated; E11.9 Type 2 diabetes mellitus without complications; K21.9 Gastro-esophageal reflux disease without esophagitis
CPT/HCPCS: 36415; 80048; 80061; 80076; 84439; 84443; 85025

== ENCOUNTER 2023-12-16 13:07 | Outpatient (CLI) | payer OTHER, SELFPAY ==
--- NOTE | 2023-12-16 13:08 | CA_ITS ---
FINAL REPORT TECHNIQUE: Color Doppler, duplex Doppler and compression sonography of the right lower extremity venous system was performed. CLINICAL HISTORY: edema, Smoker, CAD FINDINGS: There is no evidence of deep venous thrombosis from the level of the groin to the calf. The veins are patent and compressible. IMPRESSION: No evidence of deep venous thrombosis right lower extremity. Reviewed, Interpreted and Dictated by Lucas Prado III, MD Transcribed by Lina Crook Authenticated and [facility]
--- NOTE | 2023-12-16 13:08 | CA_ITS ---
FINAL REPORT TECHNIQUE: Arterial duplex Doppler evaluation of the right lower extremity with spectral analysis. CLINICAL HISTORY: edema CAD, Gomez's disease, Smoker, right groin pain FINDINGS: Right lower extremity, flow velocities (cm per second): Common femoral artery: 203 Proximal SFA: 102 Distal SFA: 105 Popliteal: 93 Anterior tibial artery: 53 Posterior tibial artery: 57 IMPRESSION: Waveforms are noted to be biphasic and triphasic. No levels of stenosis or occlusion are identified. Reviewed, Interpreted and Dictated by Lucas Prado III, MD Transcribed by Lina Crook Authenticated and [facility]
--- NOTE | 2023-12-16 13:43 | US_ITS ---
FINAL REPORT CLINICAL HISTORY: claudication, Smoker, cardiac stents, HLD, CAD, COMPARISON: None FINDINGS: ANKLE-BRACHIAL PRESSURE INDICES Pressure indices are as follows: RIGHT LOWER EXTREMITY: Ankle-brachial pressure index: 1.0 Comments: Normal LEFT LOWER EXTREMITY: Ankle-brachial pressure index: 1.1 Comments: Normal IMPRESSION: No evidence of significant obstructive peripheral vascular disease of the lower extremities Reviewed, Interpreted and Dictated by Lucas Prado III, MD Transcribed by Nati Key Authenticated and [facility]
== END 2023-12-16 23:59 | disposition home or self-care (01) ==
LOC: RT 13:08
PROVIDERS: PCP Family Medicine; Visit Provider Internal Medicine
DX: R60.0 Localized edema (principal); I73.9 Peripheral vascular disease, unspecified
CPT/HCPCS: 93923; 93926; 93971

== ENCOUNTER 2024-05-04 14:43 | Outpatient (CLI) | payer OTHER, SELFPAY ==
--- NOTE | 2024-05-04 14:46 | CT_ITS ---
FINAL REPORT TECHNIQUE: Thin section axial images were obtained from the lung apices to the upper abdomen by computed tomography. Reformatted images were obtained and reviewed. This study was performed with techniques to keep radiation doses al low as reasonably achievable (ALARA). Individualized dose reduction techniques using automated exposure control or adjustment of mA and/or kV according to the patient's size were employed. CLINICAL HISTORY: .CURRENT SMOKER 1/2PPD X45 YEARS COMPARISON: 12/10/2022 FINDINGS: CHEST CT LOW DOSE CTDI vol (mGy): 2.90 DLP (mGy-cm): 96.38 There is no axillary adenopathy. There is no mediastinal or hilar mass or adenopathy. The heart is normal in size. There is no pericardial or pleural effusion. There is mild pulmonary scarring. Lung window images demonstrate no suspicious infiltrate or nodule. Multiple calcified granulomas are noted. Limited images of the upper abdomen demonstrate a stable partially imaged 23 mm mass in the posterior right hepatic lobe. IMPRESSION: Lung-RADS category 1. Recommend 12 month follow up low dose chest CT. Reviewed, Interpreted and Dictated by Lucas Prado III, MD Transcribed by Nati Key Authenticated and . [facility]
== END 2024-05-04 23:59 | disposition home or self-care (01) ==
LOC: RAD 14:44
PROVIDERS: PCP Family Medicine; Visit Provider Internal Medicine Pulmonary Disease
DX: F17.210 Nicotine dependence, cigarettes, uncomplicated (principal)
CPT/HCPCS: 71271

== ENCOUNTER 2024-08-25 14:18 | Outpatient (CLI) | payer OTHER, SELFPAY ==
[2024-08-25 15:08] LABS: Basophils # 0.1 K/mm3 (0-0.2); Eosinophils # 0.3 K/mm3 (0.0-0.4); Eosinophils % 4.3 % (0.1-12.0); Hematocrit 32.9 % (37.0-47.0); Hemoglobin 9.8 g/dL (12.2-16.2); Lymphocytes # 1.6 K/mm3 (0.7-4.5); Lymphocytes % 24.6 % (10-50); Mean Corpuscular HGB Conc 29.8 g/dL (31.8-35.4); Mean Corpuscular Volume 83.9 fl (81-99); Mean Platelet Volume 12.9 fl (7.4-10.4); Monocytes # 0.5 K/mm3 (0.1-1.0); Monocytes % 8.4 % (1.7-9.3); Neutrophils # 3.9 K/mm3 (1.8-7.8); Neutrophils % 61.5 % (37.0-80.0); Platelet Count 223 K/mm3 (142-424); Red Blood Count 3.92 M/mm3 (4.20-5.40); White Blood Count 6.3 K/mm3 (4.8-10.8)
[2024-08-25 16:13] LABS: Direct LDL Cholesterol 47.53 mg/dL (100-129)
[2024-08-25 16:34] LABS: Free T4 (Free Thyroxine) 0.75 ng/dl (0.78-2.19)
[2024-08-25 17:03] LABS: Albumin Level 4.4 g/dl (3.5-5.0); Chloride 108 mmol/L (98-107)
[2024-08-25 17:04] LABS: Potassium 3.7 mmoL/L (3.5-5.1); Sodium 140 mmol/L (136-145)
[2024-08-25 17:06] LABS: Alanine Aminotransferase 19 U/L (12-78); Anion Gap 12.7 mEq/L (5-15); Aspartate Amino Transferase 27 U/L (14-36); Bilirubin,Unconjugated 0.1 mg/dL (0.0-1.1); Blood Urea Nitrogen 9 mg/dl (7-17); Carbon Dioxide 23 mmol/L (22.0-30.0); Estimated Glomerular Filt Rate 46 ml/min (>60); GFR (African American) 55 ML/MIN (>60)
[2024-08-25 17:07] LABS: Alkaline Phosphatase 86 U/L (38-126); Bilirubin,Direct 0.2 mg/dl (0.0-0.4); Bilirubin,Indirect 0.1 mg/dL (0.0-0.9); Bilirubin,Total 0.3 mg/dl (0.2-1.3); Calcium 9.2 mg/dl (8.4-10.2); Chol/HDL Ratio 1.6 (1-3.5); Cholesterol 148 mg/dl (140-200); Glucose 79 mg/dl (74-100); HDL Cholesterol 92 mg/dl (40-60); Magnesium 1.7 mg/dl (1.6-2.3); Total Protein,Serum 6.7 g/dl (6.3-8.2); Triglycerides 59 mg/dl (30-150); VLDL Cholesterol 12 mg/dL (0-40)
[2024-08-25 17:37] LABS: Thyroid Stimulating Hormone 1.71 uIU/mL (0.465-4.68)
== END 2024-08-25 23:59 | disposition home or self-care (01) ==
LOC: LAB 14:19
PROVIDERS: PCP Family Medicine; Visit Provider Nurse Practitioner
DX: I73.9 Peripheral vascular disease, unspecified (principal); F41.9 Anxiety disorder, unspecified; J44.9 Chronic obstructive pulmonary disease, unspecified; R00.2 Palpitations; I25.118 Atherosclerotic heart disease of native coronary artery with other forms of angina pectoris; R93.89 Abnormal findings on diagnostic imaging of other specified body structures
CPT/HCPCS: 36415; 80048; 80061; 80076; 83735; 84439; 84443; 85025

== ENCOUNTER 2024-10-21 10:04 | Outpatient (CLI) | payer OTHER, SELFPAY ==
--- OUTSIDE RECORDS SUMMARY | 2024-10-21 10:05 | XMS_ITS ---
Author Organization [facility] , [facility] Address [address] [place] [address] Phone Care Team Providers Care Chaser Helper Name Role Phone Rasheed YOU, Miller Pedroza Unavailable [phone] GALDINO YOU, ELICEO Primary Care Provider [phone] Problems Includes: Active, inactive, and resolved Problems All Visits Onset Date Resolved Date Provider Condition S tatus Lumbar Spine Painful on Movement 07/08/2024 Parmjit Giraldo PA-C Active Last Documented On 5 8:10AM ; [facility] Joint Pain in the Right Hip 01/20/2024 Parmjit Giraldo PA-C Active Last Documented On 4 8:40AM ; [facility] Plan of Treatment Pending Tests Order Diagnosis Results Due Ordering P rovider Radiology - MRI MRI Lumbar Spine Pain in right hip 4 Parmjit Giraldo PA-C Last Documented On 4 12:56PM ; [facility] Radiology - MRI MRI Lumbar Spine Low back pain, unspecifie d 09/22/24 Miller Iqbal MD Last Documented On 5 9:13AM ; [facility] Future Appointments Date Time Location Provi bran Follow Up 01/05/2025 11:00AM [facility] Miller Iqbal MD Last Documented On 5 9:21AM ; [facility] Instructions to patient Lose weight Last Documented On 4 8:42AM ; [facility] Assessments Includes: Assessments for all patient encounters Findings Encounter Date Overweight Physician Specified with Parmjit Giraldo PA-C 01/20/2024 Last Documented On 4 12:56PM ; [facility] Instructions Includes: Instructions for all patient encounters Instructions to patient Lose weight Last Documented On 4 8:42AM ; [facility] Medical Equipment - Implanted Devices Includes: Current and historical Devices No Medical Equipment Recorded Medications Includes: Current and historical Medications Current Medications (continue as prescribed) Gabapentin 300 MG Oral Capsule 06/14/2024 Provider: Miller Iqbal MD Diagnosis: Last Documented On 4 1:11PM By Al Michael ; [facility] oxyCODONE HCl 5 MG Oral Tablet 06/14/2024 Provider: Miller Iqbal MD Diagnosis: Last Documented On 4 1:11PM By Al Michael ; [facility] Famotidine 20 MG Oral Tablet 06/03/2024 Provider: Diagnosis: Last Documented On 5 8:11AM By Al Michael ; [facility] Pregabalin 75 MG Oral Capsule 06/03/2024 Provider: Diagnosis: Last Documented On 4 1:11PM By Al Michael ; [facility] buPROPion HCl ER (XL) 300 MG Oral Tablet Extended Release 24 Hour 06/03/2024 Provider: Diagnosis: Last Documented On 4 1:11PM By Al Michael ; [facility] Clopidogrel Bisulfate 75 MG Oral Tablet 01/12/2024 Hank claytonder: Diagnosis: Last Documented On 4 8:41AM By Shyam Knight ; [facility] Benzonatate 200 MG Oral Capsule, conventional 01/12/20 24 Provider: Diagnosis: Last Documented On 4 8:41AM By Shyam Knight ; [facility] HYDROcodone-Acetaminophen 10-325 MG Oral Tablet 2023 Provider: ELICEO AHMADI MD Diagnosis: Last Documented On 4 8:41AM By Shyam Knight ; [facility] Cyclobenzaprine HCl 10 MG Oral Tablet 01/05/2024 Pro vider: ELICEO AHMADI MD Diagnosis: Last Documented On 4 8:41AM By Shyam Knight ; [facility] Topiramate 200 MG Oral Tablet 12/28/2023 Provider: ELICEO AHMADI MD Diagnosis: Last Documented On 4 8:41AM By Shyam Knight ; [facility] Estradiol 1 MG Oral Tablet 12/28/2023 Provider: Maday AHMADI MD Diagnosis: Last Documented On 4 8:41AM By Shyam Knight ; [facility] Bevespi Aerosphere 9-4.8 MCG/ACT Inhalation Aerosol Provider: Diagnosis: Last Documented On 4 8:41AM By Shyam Knight ; [facility] ALPRAZolam 1 MG Oral Tablet 12/28/2023 Provider: EILCEO AHMADI MD Diagnosis: Last Documented On 4 8:41AM By Shyam Knight ; [facility] Atorvastatin Calcium 40 MG Oral Tablet 12/25/2023 Pr ovider: Diagnosis: Last Documented On 4 8:41AM By Shyam Knight ; [facility] Cyclobenzaprine HCl 10 MG Oral Tablet 12/07/2023 Pro vider: ELICEO AHMADI MD Diagnosis: Last Documented On 4 8:41AM By Shyam Knight ; [facility] Past Medications on file Neurontin 300 MG Oral Capsule 08/09/2024 - 09/08/2024 Provider: Miller Iqbal MD Diagnosis: three times a day Last Documented On 5 3:50PM By Miller Iqbal ; [facility] oxyCODONE HCl 5 MG Oral Capsule 07/08/2024 - Provider: Miller Iqbal MD Diagnosis: Take 1 tablet every 8 hrs prn for breakthrough p ain Last Documented On 5 8:40AM By Miller Iqbal ; [facility] Neurontin 300 MG Oral Capsule 06/14/2024 - 08/13/2024 Provider: Miller Iqbal MD Diagnosis: three times a day Last Documented On 4 10:40AM By Miller Iqbal ; [facility] oxyCODONE HCl 5 MG Oral Tablet 06/14/2024 - 06/29/2024 Provider: Miller Iqbal MD Diagnosis: 1 tab every 6 hrs prn pain 1 tab every 6 hrs prn breakthrough pain Last Documented On 4 10:39AM By Miller Iqbal ; [facility] Neurontin 300 MG Oral Capsule 06/11/2024 - 06/11/2024 Provider: Miller Iqbal MD Diagnosis: three times a day Last Documented On 11:56AM By Miller Iqbal ; [facility] Medications Administered Includes: Administered Medications in patient's chart No Administered Medications Recorded Vital Signs Includes: Vital Signs from 10/22/2023 through 10/21/2024 Vital Name 10/20/2024 09:03A 09/08/2024 11:02A 07/08/2024 08:12A 06/21/2024 01:12P 03/10/2024 11:18A Height (in) 64 64 64 64 65 Weight (lb) 140 144 129 130 128 Body Mass Index 24 24.7 22.1 22.3 21.3 Body Surface Area 1.7 1.7 1.6 1.6 1.6 Pain Level 8 5 8 8 9 Note: PW lc Last Documented: On 10/20/2024 9:04AM ; [facility] On 09/08/2024 11:02AM ; [facility] On 07/08/2024 8:15AM ; [facility] On 06/21/2024 1:13PM ; [facility] On 03/10/2024 11:18AM ; [facility] Vital Name 01/20/2024 09:08A Height (in) 65 Weight (lb) 123 Body Mass Index 20.5 Body Surface Area 1.6 Pain Level 5 Note: mbb Last Documented: On 01/20/2024 9:08AM ; [facility] Results Includes: Results from 10/22/2023 through 10/21/2024 No Results Recorded For Specified Dates History of Present Illness History of Present Illness not supported for this document type No History of Present Illness Recorded Social History Description Last Updated Caffeine use 01/20/2024 Last Documented On 4 12:56PM ; [facility] Yes, current smoker. 01/20/2024 Last Documented On 12:56PM ; [facility] No recent change in diet 01/20/2024 Last Documented On 4 12:56PM ; [facility] Not exercising regularly 01/20/2024 Last Documented On 4 12:56PM ; [facility] Not using alcohol 01/20/2024 Last Documented On 4 12:56PM ; [facility] Not using drugs 01/20/2024 Last Documented On 4 12:56PM ; [facility] Smoking Status Unknown Procedures and Surgical History Includes: Procedures from 10/22/2023 through 10/21/2024 Procedures Code Diagnosis Performing Provider Service Location Service Date Horizon 627 lumbar DME L0627 Fusion of spine, lumbar region Miller Iqbal MD [facility] DME 09/08/2024 Last Documented On 5 10:49AM ; [facility] X-RAY EXAM OF LOWER SPINE 2-3 VIEWS LIMITED 44957 Fusion of spine, lumbar region Miller Iqbal MD [facility] 09/08/2024 Last Documented On 5 2:36PM ; [facility] X-RAY EXAM OF LOWER SPINE 2-3 VIEWS LIMITED 95800 Fusion of spine, lumbar region Miller Iqbal MD [facility] 07/28/2024 Last Documented On 5 11:59AM ; [facility] X-RAY EXAM OF LOWER SPINE 2-3 VIEWS LIMITED 27933 Fusion of spine, lumbar region Parmjit Giraldo PA-C [facility] 07/08/2024 Last Documented On 5 4:20PM ; [facility] X-RAY EXAM OF LOWER SPINE 2-3 VIEWS LIMITED 97498 Fusion of spine, lumbar region Parmjit Giraldo PA-C [facility] 06/21/2024 Last Documented On 4 9:19PM ; [facility] Insertion of interbody cage each interspace (Distinct procedure) 50820 Spinal stenosis, lumbar region with neurogenic claudication, Spondylolisthesis, lumbar region Miller Iqbal MD [facility] 06/08/2024 Last Documented On 4 2:35PM ; [facility] Insertion of interbody cage each interspace (Distinct procedure) 63497 Spinal stenosis, lumbar region with neurogenic claudication, Spondylolisthesis, lumbar region Miller Iqbal MD [facility] 06/08/2024 Last Documented On 4 2:35PM ; [facility] Insertion of interbody cage each interspace 81082 Spinal stenosis, lumbar region with neurogenic claudication, Spondylolisthesis, lumbar region Miller Iqbal MD [facility] 06/08/2024 Last Documented On 4 2:35PM ; [facility] INSERT SPINE FIXATION DEVICE 29589 Spinal stenosis, lumbar region with neurogenic claudication, Spondylolisthesis, lumbar region Miller Iqbal MD [facility] 06/08/2024 Last Documented On 4 2:35PM ; [facility] Arthrodesis, combined posterior or posterolateral technique (Distinct procedure) 82866 Spinal stenosis, lumbar region with neurogenic claudication, Spondylolisthesis, lumbar region Miller Iqbal MD [facility] 06/08/2024 Last Documented On 4 2:35PM ; [facility] Arthrodesis, combined posterior or posterolateral technique 26094 Spinal stenosis, lumbar region with neurogenic claudication, Spondylolisthesis, lumbar region Miller Iqbal MD [facility] 06/08/2024 Last Documented On 4 2:35PM ; [facility] Arthrodesis, combined posterior or posterolateral technique 02333 Spinal stenosis, lumbar region with neurogenic claudication, Spondylolisthesis, lumbar region Miller Iqbal MD [facility] 06/08/2024 Last Documented On 4 2:35PM ; [facility] Laminectomy, facetectomy, or foraminotomy w/ decompression ([employer]eles[employer] Advisor surgeon) 47677 Spinal stenosis, lumbar region with neurogenic claudication, Spondylolisthesis, lumbar region Antonio Dela Cruz PA-C [facility] 06/08/2024 Last Documented On 5 5:04PM ; [facility] Each additional segment ([employer]eles[employer] Advisor surgeon, Distinct procedure) 97483 Spinal stenosis, lumbar region with neurogenic claudication, Spondylolisthesis, lumbar region Antonio Dela Cruz PA-C [facility] 06/08/2024 Last Documented On 5 5:04PM ; [facility] Each additional segment (Telesales Advisor surgeon, Distinct procedure) 30329 Spinal stenosis, lumbar region with neurogenic claudication, Spondylolisthesis, [facility] 06/08/2024 Last Documented On 5 5:04PM ; [facility] SPINAL BONE ALLOGRAFT ([employer]elesales Advisor surgeon) 64086 Spinal stenosis, lumbar region with neurogenic claudication, Spondylolisthesis, lumbar region [facility] 06/08/2024 Last Documented On 5 5:04PM ; [facility] SPINAL BONE ALLOGRAFT 96670 Spinal stenosis, lumbar region with neurogenic claudication, Spondylolisthesis, lumbar region Miller Iqbal MD [facility] 06/08/2024 Last Documented On 4 2:35PM ; [facility] Each additional segment (Distinct procedure) 69414 Spinal stenosis, lumbar region with neurogenic claudication, Spondylolisthesis, lumbar region Miller Iqbal MD [facility] 06/08/2024 Last Documented On 4 2:35PM ; [facility] Each additional segment 61299 Spinal stenosis, lumbar region with neurogenic claudication, Spondylolisthesis, lumbar region Miller Iqbal MD [facility] 06/08/2024 Last Documented On 4 2:35PM ; [facility] Laminectomy, facetectomy, or foraminotomy w/ decompression 21496 Spinal stenosis, lumbar region with neurogenic claudication, Spondylolisthesis, lumbar region Miller Iqbal MD [facility] 06/08/2024 Last Documented On 4 2:35PM ; [facility] SPINAL BONE AUTOGRAFT 96171 Spinal stenosis, lumbar region with neurogenic claudication, Spondylolisthesis, lumbar region Miller Iqbal MD [facility] 06/08/2024 Last Documented On 4 2:35PM ; [facility] Arthrodesis, combined posterior or posterolateral technique (Telesales Advisor surgeon) 46546 Spinal stenosis, lumbar region with neurogenic claudication, Spondylolisthesis, lumbar region [facility] 06/08/2024 Last Documented On 5 5:04PM ; [facility] Arthrodesis, combined posterior or posterolateral technique (Telesales Advisor surgeon) 48727 Spinal stenosis, lumbar region with neurogenic claudication, Spondylolisthesis, lumbar region [facility] 06/08/2024 Last Documented On 5 5:04PM ; [facility] Arthrodesis, combined posterior or posterolateral technique (Teles[employer] Advisor surgeon, Distinct procedure) 12933 Spinal stenosis, lumbar region with neurogenic claudication, Spondylolisthesis, lumbar region [facility] 06/08/2024 Last Documented On 5 5:04PM ; [facility] INSERT SPINE FIXATION DEVICE (Teles[employer] Advisor surgeon) 74802 Spinal stenosis, lumbar region with neurogenic claudication, Spondylolisthesis, lumbar region [facility] 06/08/2024 Last Documented On 5 5:04PM ; [facility] Insertion of interbody cage each interspace (Telesales Advisor surgeon) 39686 Spinal stenosis, lumbar region with neurogenic claudication, Spondylolisthesis, lumbar region [facility] 06/08/2024 Last Documented On 5 5:04PM ; [facility] Insertion of interbody cage each interspace (Telesales Advisor surgeon, Distinct procedure) 33334 Spinal stenosis, lumbar region with neurogenic claudication, Spondylolisthesis, lumbar region [facility] 06/08/2024 Last Documented On 5 5:04PM ; [facility] Insertion of interbody cage each interspace (Teles[employer] Advisor surgeon, Distinct procedure) 08030 Spinal stenosis, lumbar region with neurogenic claudication, Spondylolisthesis, lumbar region [facility] 06/08/2024 Last Documented On 5 5:04PM ; [facility] SPINAL BONE AUTOGRAFT ([employer]elesales Advisor surgeon) 87858 Spinal stenosis, lumbar region with neurogenic claudication, Spondylolisthesis, lumbar region Antonio Dela Cruz PA-C [facility] 06/08/2024 Last Documented On 5 5:04PM ; [facility] Eval - High Complexity (GP) 98813 Spondylolisthesis, lumbar region, Other intervertebral disc degeneration, lumbar region, Other forms of scoliosis, lumbar region Zafar Fitzpatrick PT [facility] 04/04/2024 Last Documented On 4 1:10PM ; [facility] X-RAY EXAM OF LOWER SPINE 4-5 VIEWS 80180 Spondylolisthesis, lumbar region, Other intervertebral disc degeneration, lumbar region, Other forms of scoliosis, lumbar region Parmjit Giraldo PA-C [facility] 01/20/2024 Last Documented On 4 5:44AM ; [facility] Surgical History Last Updated History of back surgery L3-S1 Open Decom pression & Fusion 06/08/24 09/12/2024 Last Documented On 5 9:13AM ; [facility] History of hysterectomy 01/20/2024 Last Documented On 4 12:56PM ; [facility] Past Surgical History: stents 01/20/2024 Last Documented On 4 12:56PM ; [facility] Medical History Includes: Medical History in patient's chart Description Last Updated History of heart disease 01/20/2024 Last Documented On 4 12:56PM ; [facility] History of Irregular Heartbeat 4 Last Documented On 4 12:56PM ; [facility] Past medical and surgical history non-co ntributory 01/20/2024 Last Documented On 4 12:56PM ; [facility] Family History Includes: Family History in patient's chart Description Last Updated Family history of cancer 01/20/2024 Last Documented On 4 12:56PM ; [facility] Family history of heart disease 01/20/20 24 Last Documented On 4 12:56PM ; [facility] Family history of osteoporosis 4 Last Documented On 4 12:56PM ; [facility] Family history of rheumatoid arthritis 0 01/20/2024 Last Documented On 4 12:56PM ; [facility] Stroke / Seizures 01/20/2024 Last Documented On 4 12:56PM ; [facility] Review of Systems Review of Systems not supported for this document type No Review of Systems Recorded Mental Status Description Anxiety Functional Status No Functional Status Recorded Physical Exam Physical Exam not supported for this document type No Physical Exam Recorded Allergies Includes: Active, inactive, and resolved Allergies No Known Allergies Encounters Includes: Encounters from 10/22/2023 through 10/21/2024 Encounter Provider Location Date Check-In Time Check-Out Time Diagnosis Follow Up Miller Iqbal MD [facility] 10/21/19 25 8:42AM 9:18AM Follow Up Miller Iqbal MD [facility] 09/09/19 25 10:36AM 11:43AM [employer] Miller Iqbal MD [facility] 09/09/19 25 10:49AM 11:59PM Post Op Miller Iqbal MD [facility] 07/28/19 25 10:37AM 11:20AM Post Op Parmjit Giraldo PA-C [facility] 07/08/19 25 8:04AM 8:34AM Post Op Parmjit Giraldo PA-C [facility] 06/21/20 24 12:52PM 1:26PM [Patient Encounter] Miller Iqbal MD 06/14/20 24 06/13/2024 10:24AM 03/10/2024 11:59PM [facility] Miller Iqbal MD Surgery 06/08/20 24 06/13/2024 12:15PM 03/10/2024 11:59PM [Patient Encounter] Miller Iqbal MD 06/08/20 24 03/10/2024 8:37AM 03/10/2024 11:59PM [Patient Encounter] Miller Iqbal MD 05/24/2003/10/2024 9:56AM 03/10/2024 11:59PM [Patient Encounter] Miller Iqbal MD 03/29/2003/10/2024 3:31PM 03/10/2024 11:59PM Follow Up Miller Iqbal MD [facility] 03/10/20 10:32AM 11:53AM Physician Specified Parmjit Giraldo PA-C [facility] 01/20/20 8:54AM 9:35AM Overweight Insurance Includes: Active Insurance Policies Plan Name Member ID Group # Subscriber Relationship Effect rizwan Dates 1 - [facility] [id number] Selina Olivera Self Clinical Notes Includes: Signed Clinical Notes starting from 06/19/2022 * Progress note Date Encounter Last Documented by 09/08/2024 Follow Up Last documented on 09/12/2024; 9:13 AM, Miller Iqbal MD; [facility] Active Problems & Conditions - Joint Pain in the Right Hip - Lumbar Spine Painful on Movement Chief Complaint The Chief Complaint is: LBP. Referred Here Referred by PCP. History of Present Illness Selina Olivera is a 64 year old female. - Allergy list reviewed - Problem list reviewed - Medication list reviewed - - Review of medications documented Patient is here today for follow-up of her L3-S1 decompression and fusion surgery date 06/08/24. Her biggest complaint is just mainly back pain especially when she tries to stand up straight she feels like when she tries to stand up straight she feels like something sticking in her back. She does feel that the leg pain that she had prior to surgery he is better she rates her pain level 5/10. She feels that the pain medicine that she takes her family physician which is hydrocodone 10 isn't helping the pain Current Medication - ALPRAZolam 1 MG Oral Tablet 30 days, 0 refills - Atorvastatin Calcium 40 MG Oral Tablet 30 days, 0 refills - Benzonatate 200 MG Oral Capsule, conventional 30 days, 0 refills - Bevespi Aerosphere 9-4.8 MCG/ACT Inhalation Aerosol 30 days, 0 refills - buPROPion HCl ER (XL) 300 MG Oral Tablet Extended Release 24 Hour 30 days, 0 refills - Clopidogrel Bisulfate 75 MG Oral Tablet 30 days, 0 refills - Cyclobenzaprine HCl 10 MG Oral Tablet 30 days, 0 refills - Cyclobenzaprine HCl 10 MG Oral Tablet 30 days, 0 refills - Estradiol 1 MG Oral Tablet 30 days, 0 refills - Famotidine 20 MG Oral Tablet 30 days, 0 refills - Gabapentin 300 MG Oral Capsule 30 days, 0 refills - HYDROcodone-Acetaminophen 10-325 MG Oral Tablet 30 days, 0 refills - oxyCODONE HCl 5 MG Oral Tablet 15 days, 0 refills - Pregabalin 75 MG Oral Capsule 30 days, 0 refills - Topiramate 200 MG Oral Tablet 30 days, 0 refills Past Medical/Surgical History Diagnoses: Heart disease. Irregular Heartbeat Surgical: - Past Surgical History: stents - Hysterectomy - Back surgery L3-S1 Open Decompression & Fusion 06/08/24 Social History Yes, current smoker. Current diet: No recent change in diet. Caffeine use: Caffeine use. Alcohol: Not using alcohol. Drug Use: Not using drugs. Habits: Not exercising regularly. Allergies - No Known Allergies Family History Cancer Heart disease Stroke / Seizures Osteoporosis Rheumatoid arthritis Review Of Systems Systemic: Feeling tired. No recent weight loss and no recent weight gain. Head: Headache. No sinus pain. Eyes: No vision problems and no Cataracts. Glasses/Contacts. No Glaucoma. Otolaryngeal: No hearing loss and no tinnitus. Cardiovascular: No chest pain or discomfort. Palpitations. No Hypertension and no High Cholesterol. Pulmonary: Daytime asthma symptoms and chronic cough. No wheezing. Gastrointestinal: No heartburn and no abdominal pain. No Indigestion, no Peptic Ulcer, no GI Stomach Bleed, and no Ulcers. Acid Reflux. Endocrine: No hot flashes, no muscle weakness, no Diabetes, no Hypothyroid, and no Hyperthyroid. Hematologic: No easy bleeding. A tendency for easy bruising. No Anemia. Musculoskeletal: Arthritis and lower back pain. No soft tissue swelling and no localized joint pain. Neurological: No dizziness and no convulsions. Numbness. Psychological: Anxiety. No emotional lability. Depression and insomnia. Not crying for no reason. Skin: No dry skin. No Ulcers. Scars. No rash. Allergic and Immunologic: No complaint of seasonal allergic reaction. Physical Findings - Vitals taken 09/08/2024 11:02 am PW Height 64 in Weight 144 lbs Body Mass Index 24.7 kg/m2 Body Surface Area 1.7 m2 Pain Level 5 She does walk with a kyphotic posture 4+ out of 5 EHL gastrocs quadriceps tibialis anterior strength bilaterally negative straight leg raise bilaterally Tests Two views lumbar spine show the previous fusion at L 3 to S1 it but she is breaking down above the fusion at L2-L3 09/08/2024 Assessment L3-S1 fusion Adjacent segment L2-L3 disease Previous Tests Imaging: X-Ray: X-ray 11/27/2023. MRI Scan: An MRI was performed 03/02/2024 [facility] MRI [facility]. Available previous imaging studies were reviewed Available previous history reviewed Counseling/Education - Tobacco non-user - Use of tobacco assessment performed Plan StartCited - Low back pain, unspecified Therapy/Physical Therapy: Lumbar Instructions: See PT order attached Radiology/MRI: MRI Lumbar Spine EndCited Patient was seen by myself and Dr. Rasheed Giraldo PA-C. Patient will follow up lumbar spine MRIs well as with the start some physical therapy and get her a lumbar corset we really recommend her trying to really work on good posture strengthening program. She was asking about other pain medicine we had told her we can not give her anymore pain medicine as she is already on pain medicine. Notes This dictation was done with voice recognition software and may contain errors and omissions. Care Team - ELICEO AHMADI MD - DIRECTOR RECORDS MANAGEMENT Health Reminders - Assess BMI satisfied 09/08/2024. - Assess Tobacco Use satisfied 09/08/2024. * Progress note Date Encounter Last Documented by 07/08/2024 Post Op Last documented on 07/08/2024; 8:35 AM, Parmjit Giraldo PA-C; [facility], [facility] Active Problems & Conditions - Joint Pain in the Right Hip - Lumbar Spine Painful on Movement Chief Complaint The Chief Complaint is: LBP. Referred Here Referred by PCP. History of Present Illness Selina Olivera is a 64 year old female. - Allergy list reviewed - Problem list reviewed - Medication list reviewed - - Review of medications documented Patient has a L3-S1 fusion 12 for 24 it was doing well up until this past Thursday she says she is trying to turn over in her bed it had hard time doing this and took her right foot raise it up and felt something kind of pop in her back and since then she says some increasing pain in the right side of her lower back. It does not seem to radiate down the leg. She is using a walker to walk with. Normally she does take Wayne 10 normally for pain and we gave her some medicine to have for breakthrough pain which was oxycodone post surgery Current Medication - ALPRAZolam 1 MG Oral Tablet 30 days, 0 refills - Atorvastatin Calcium 40 MG Oral Tablet 30 days, 0 refills - Benzonatate 200 MG Oral Capsule, conventional 30 days, 0 refills - Bevespi Aerosphere 9-4.8 MCG/ACT Inhalation Aerosol 30 days, 0 refills - buPROPion HCl ER (XL) 300 MG Oral Tablet Extended Release 24 Hour 30 days, 0 refills - Clopidogrel Bisulfate 75 MG Oral Tablet 30 days, 0 refills - Cyclobenzaprine HCl 10 MG Oral Tablet 30 days, 0 refills - Cyclobenzaprine HCl 10 MG Oral Tablet 30 days, 0 refills - Estradiol 1 MG Oral Tablet 30 days, 0 refills - Famotidine 20 MG Oral Tablet 30 days, 0 refills - Gabapentin 300 MG Oral Capsule 30 days, 0 refills - HYDROcodone-Acetaminophen 10-325 MG Oral Tablet 30 days, 0 refills - Neurontin 300 MG Oral Capsule three times a day, 30 days, 1 refills - oxyCODONE HCl 5 MG Oral Tablet 15 days, 0 refills - Pregabalin 75 MG Oral Capsule 30 days, 0 refills - Topiramate 200 MG Oral Tablet 30 days, 0 refills Past Medical/Surgical History Diagnoses: Heart disease. Irregular Heartbeat Past medical and surgical history non-contributory. Surgical: - Past Surgical History: stents - Hysterectomy Social History Yes, current smoker. Current diet: No recent change in diet. Caffeine use: Caffeine use. Alcohol: Not using alcohol. Drug Use: Not using drugs. Habits: Not exercising regularly. Allergies - No Known Allergies Family History Cancer Heart disease Stroke / Seizures Osteoporosis Rheumatoid arthritis Review Of Systems Systemic: Feeling tired. No recent weight loss and no recent weight gain. Head: Headache. No sinus pain. Eyes: No vision problems and no Cataracts. Glasses/Contacts. No Glaucoma. Otolaryngeal: No hearing loss and no tinnitus. Cardiovascular: No chest pain or discomfort. Palpitations. No Hypertension and no High Cholesterol. Pulmonary: Daytime asthma symptoms and chronic cough. No wheezing. Gastrointestinal: No heartburn and no abdominal pain. No Indigestion, no Peptic Ulcer, no GI Stomach Bleed, and no Ulcers. Acid Reflux. Endocrine: No hot flashes, no muscle weakness, no Diabetes, no Hypothyroid, and no Hyperthyroid. Hematologic: No easy bleeding. A tendency for easy bruising. No Anemia. Musculoskeletal: Arthritis and lower back pain. No soft tissue swelling and no localized joint pain. Neurological: No dizziness and no convulsions. Numbness. Psychological: Anxiety. No emotional lability. Depression and insomnia. Not crying for no reason. Skin: No dry skin. No Ulcers. Scars. No rash. Allergic and Immunologic: No complaint of seasonal allergic reaction. Physical Findings - Vitals taken 07/08/2024 08:12 am Height 64 in Weight 129 lbs Body Mass Index 22.1 kg/m2 Body Surface Area 1.6 m2 Pain Level 8 The incision was healed Strength 4+ out of 5 both lower extremity using a walker to walk with a walks with a bent over gait Tests Two views lumbar spine show the hardware in good position she does have degenerative scoliosis above the fusion I do not see any acute fracture 07/08/2024 Assessment L3-S1 fusion 06/08/24 Low back pain Previous Tests Imaging: X-Ray: An X-ray was performed 11/27/2023. MRI Scan: An MRI was performed 03/02/2024 [facility]. Available previous imaging studies were reviewed Available previous history reviewed Counseling/Education - Tobacco non-user - Use of tobacco assessment performed Plan StartCited - Other oxyCODONE HCl 5 MG capsule Take 1 tablet every 8 hrs prn for breakthrough pain, 10 days, 0 refills EndCited Patient was seen by myself Parmjit Giraldo PA-C. Patient will follow up at her next appointment in [address] Iqbal she can try some heat ibuprofen with this continue to walk emphasize trying to stand more upright with a walker we will give her 1 last prescription for some breakthrough pain. Notes This dictation was done with voice recognition software and may contain errors and omissions. Care Team - ELICEO AHMADI MD - DIRECTOR RECORDS MANAGEMENT Health Reminders - Assess BMI satisfied 07/08/2024. - Assess Tobacco Use satisfied 07/08/2024. * Progress note Date Encounter Last Documented by 06/21/2024 Post Op Last documented on 06/21/2024; 4:14 PM, Parmjit Giraldo PA-C; [facility], [facility] Active Problems & Conditions - Joint Pain in the Right Hip Chief Complaint The Chief Complaint is: LBP. Referred Here Referred by PCP. History of Present Illness Selina Olivera is a 64 year old female. - Allergy list reviewed - Problem list reviewed - Medication list reviewed - - Review of medications documented Patient is here today for follow up of her L3-S1 decompression and fusion she had a posterolateral fusion surgery date was 06/08/24. Patient states she is doing okay at this point in time still having some of this right leg and thigh pain that she was having some pain in the left leg now in his left groin. She is using a walker to walk with it home she has not noticed any drainage with the incision she is still taking the gabapentin Current Medication - ALPRAZolam 1 MG Oral Tablet 30 days, 0 refills - Atorvastatin Calcium 40 MG Oral Tablet 30 days, 0 refills - Benzonatate 200 MG Oral Capsule, conventional 30 days, 0 refills - Bevespi Aerosphere 9-4.8 MCG/ACT Inhalation Aerosol 30 days, 0 refills - buPROPion HCl ER (XL) 300 MG Oral Tablet Extended Release 24 Hour 30 days, 0 refills - Clopidogrel Bisulfate 75 MG Oral Tablet 30 days, 0 refills - Cyclobenzaprine HCl 10 MG Oral Tablet 30 days, 0 refills - Cyclobenzaprine HCl 10 MG Oral Tablet 30 days, 0 refills - Estradiol 1 MG Oral Tablet 30 days, 0 refills - Gabapentin 300 MG Oral Capsule 30 days, 0 refills - HYDROcodone-Acetaminophen 10-325 MG Oral Tablet 30 days, 0 refills - Neurontin 300 MG Oral Capsule three times a day, 30 days, 1 refills - oxyCODONE HCl 5 MG Oral Tablet 1 tab every 6 hrs prn pain 1 tab every 6 hrs prn breakthrough pain, 15 days, 0 refills - oxyCODONE HCl 5 MG Oral Tablet 15 days, 0 refills - Pregabalin 75 MG Oral Capsule 30 days, 0 refills - Topiramate 200 MG Oral Tablet 30 days, 0 refills Past Medical/Surgical History Diagnoses: Heart disease. Irregular Heartbeat Past medical and surgical history non-contributory. Surgical: - Past Surgical History: stents - Hysterectomy Social History Yes, current smoker. Current diet: No recent change in diet. Caffeine use: Caffeine use. Alcohol: Not using alcohol. Drug Use: Not using drugs. Habits: Not exercising regularly. Allergies - No Known Allergies Family History Cancer Heart disease Stroke / Seizures Osteoporosis Rheumatoid arthritis Review Of Systems Systemic: Feeling tired. No recent weight loss and no recent weight gain. Head: Headache. No sinus pain. Eyes: No vision problems and no Cataracts. Glasses/Contacts. No Glaucoma. Otolaryngeal: No hearing loss and no tinnitus. Cardiovascular: No chest pain or discomfort. Palpitations. No Hypertension and no High Cholesterol. Pulmonary: Daytime asthma symptoms and chronic cough. No wheezing. Gastrointestinal: No heartburn and no abdominal pain. No Indigestion, no Peptic Ulcer, no GI Stomach Bleed, and no Ulcers. Acid Reflux. Endocrine: No hot flashes, no muscle weakness, no Diabetes, no Hypothyroid, and no Hyperthyroid. Hematologic: No easy bleeding. A tendency for easy bruising. No Anemia. Musculoskeletal: Arthritis and lower back pain. No soft tissue swelling and no localized joint pain. Neurological: No dizziness and no convulsions. Numbness. Psychological: Anxiety. No emotional lability. Depression and insomnia. Not crying for no reason. Skin: No dry skin. No Ulcers. Scars. No rash. Allergic and Immunologic: No complaint of seasonal allergic reaction. Physical Findings - Vitals taken 06/21/2024 01:12 pm Height 64 in Weight 130 lbs Body Mass Index 22.3 kg/m2 Body Surface Area 1.6 m2 Pain Level 8 The incision looks clean dry intact with cathy no sign of any infection Patient is using a walker to walk with 4+ out of 5 EHL gastrocs quadriceps tibialis anterior strength bilaterally negative straight leg raise bilaterally No pain with the left hip range motion Tests Two views lumbar spine show the hardware in good position along with the interbody device 06/21/2024 Previous hip x-rays were reviewed which show no significant abnormality Assessment L3-S1 decompression and fusion 06/08/24 Previous Tests Imaging: X-Ray: An X-ray was performed 11/27/2023. MRI Scan: An MRI was performed 03/02/2024 [facility]. Available previous imaging studies were reviewed Available previous history reviewed Counseling/Education - Tobacco non-user - Use of tobacco assessment performed Plan Patient was seen by myself and Dr. Rasheed Giraldo PA-C. Patient will follow up 1 month repeat lumbar spine x-rays encouraged her to continue to walk we will get her cathy out today. Continue no bending lifting or twisting Notes This dictation was done with voice recognition software and may contain errors and omissions. Care Team - ELICEO AHMADI MD - DIRECTOR RECORDS MANAGEMENT Health Reminders - Assess BMI satisfied 06/21/2024. - Assess Tobacco Use satisfied 06/21/2024. * Progress note Date Encounter Last Documented by 03/10/2024 Follow Up Last documented on 05/24/2024; 9:54 AM, Miller Iqbal MD; [facility], [facility] Active Problems & Conditions - Joint Pain in the Right Hip Chief Complaint The Chief Complaint is: R hip pain. Referred Here Referred by PCP. History of Present Illness Selina Olivera is a 64 year old female. - Symptoms nothing makes pain better walking and standing makes pain worse. - Allergy list reviewed - Problem list reviewed - Medication list reviewed - Sharp pain Symptoms - Stabbing - Pain is constant (100% of the time) - Pain is throbbing - Pain is dull, aching - Patient pain level from 1-10: 9 - Patient pain level from 1-10: 5 - Yes, previous treatment. PCP - History of Physical Therapy 04/04/24 - Patient completed eval, it was determined by Physical Therapist that she's not a candidate for PT - - Review of medications documented Patient is here today complaints of right hip and thigh pain that radiates to the right knee has been ongoing since June of last year. Sometimes it radiates to the foot It is worse when she tries to walk or stand has difficulty walking can not walk very far it does feel like she gets some relief when she is hunched over a cart. She is tried icy Hot Ice Flexeril. She has a history of back pain and does take Wayne 10 three times a day she says she does get this from her family physician Dr. Ahmadi. Pain with the role radiate into the right groin area she states. She also went through a vascular workup which was negative for any DVT or peripheral vascular disease. No bowel or bladder issues with this. Patient is also on Plavix . Current Medication - ALPRAZolam 1 MG Oral Tablet 30 days, 0 refills - Atorvastatin Calcium 40 MG Oral Tablet 30 days, 0 refills - Benzonatate 200 MG Oral Capsule, conventional 30 days, 0 refills - Bevespi Aerosphere 9-4.8 MCG/ACT Inhalation Aerosol 30 days, 0 refills - Clopidogrel Bisulfate 75 MG Oral Tablet 30 days, 0 refills - Cyclobenzaprine HCl 10 MG Oral Tablet 30 days, 0 refills - Cyclobenzaprine HCl 10 MG Oral Tablet 30 days, 0 refills - Estradiol 1 MG Oral Tablet 30 days, 0 refills - HYDROcodone-Acetaminophen 10-325 MG Oral Tablet 30 days, 0 refills - Topiramate 200 MG Oral Tablet 30 days, 0 refills Past Medical/Surgical History Diagnoses: Heart disease. Irregular Heartbeat Surgical: - Past Surgical History: stents - Hysterectomy Social History Yes, current smoker. Current diet: No recent change in diet. Caffeine use: Caffeine use. Alcohol: Not using alcohol. Drug Use: Not using drugs. Habits: Not exercising regularly. Allergies - No Known Allergies Family History Cancer Heart disease Stroke / Seizures Osteoporosis Rheumatoid arthritis Review Of Systems Systemic: Feeling tired. No recent weight loss and no recent weight gain. Head: Headache. No sinus pain. Eyes: No vision problems and no Cataracts. Glasses/Contacts. No Glaucoma. Otolaryngeal: No hearing loss and no tinnitus. Cardiovascular: No chest pain or discomfort. Palpitations. No Hypertension and no High Cholesterol. Pulmonary: Daytime asthma symptoms and chronic cough. No wheezing. Gastrointestinal: No heartburn and no abdominal pain. No Indigestion, no Peptic Ulcer, no GI Stomach Bleed, and no Ulcers. Acid Reflux. Endocrine: No hot flashes, no muscle weakness, no Diabetes, no Hypothyroid, and no Hyperthyroid. Hematologic: No easy bleeding. A tendency for easy bruising. No Anemia. Musculoskeletal: Arthritis and lower back pain. No soft tissue swelling and no localized joint pain. Neurological: No dizziness and no convulsions. Numbness. Psychological: Anxiety. No emotional lability. Depression and insomnia. Not crying for no reason. Skin: No dry skin. No Ulcers. Scars. No rash. Allergic and Immunologic: No complaint of seasonal allergic reaction. Physical Findings - Vitals taken 03/10/2024 11:18 am lc Height 65 in Weight 128 lbs Body Mass Index 21.3 kg/m2 Body Surface Area 1.6 m2 Pain Level 9 Pleasant oriented x3. She is minimal pain with right hip range motion with the external rotation She is 5/5 EHL gastrocs quadriceps tibialis anterior strength bilaterally Blunted Achilles and patellar reflexes bilaterally negative straight leg raise bilaterally Tests Outside facility x-rays of the right hip were negative Four views lumbar spine shows degenerative changes with the back degenerative scoliosis and spondylolisthesis at L3-L4, retrolisthesis L4-L5 she does have a spondylolisthesis at L5-S1 also. She has this deformity with the back related to the scoliosis MRI lumbar spine shows stenosis at L3-L4 L4-L5 spondylolisthesis at L3-L4 retrolisthesis L4-L5 and stenosis and spondylolisthesis at L5-S1 Doppler ultrasound was negative in her arterial duplex stated no stenosis Outside facility x-rays of the right hip were negative Four views lumbar spine shows degenerative changes with the back degenerative scoliosis in his spondylolisthesis at L3-L4 01/20/2024 Doppler ultrasound was negative in her arterial duplex stated no stenosis Assessment Degenerative scoliosis L3-L4 spondylolisthesis L3-S1 stenosis L4-L5 retrolisthesis L5-S1 spondylolisthesis Degenerative scoliosis L3-L4 spondylolisthesis possible stenosis Lumbar DDD Previous Tests Imaging: X-Ray: An X-ray was performed [facility] 11/27/2023. MRI Scan: An MRI was performed 03/02/2024 [facility]. Available previous imaging studies were reviewed Available previous history reviewed Counseling/Education - Tobacco non-user - Use of tobacco assessment performed Plan Patient was seen by myself and Dr. Rasheed Giraldo PA-C. Patient will follow up post surgery Dr. Iqbal educated her all benefits risks and alternatives surgery for an L3-S1 decompression and fusion to address the above issues. Patient understands all benefits risks alternatives surgery and consents to proceed Notes This dictation was done with voice recognition software and may contain errors and omissions. Care Team - ELICEO AHMADI MD - DIRECTOR RECORDS MANAGEMENT Health Reminders - Assess BMI satisfied 03/10/2024. - Assess Tobacco Use satisfied 03/10/2024. * Progress note Date Encounter Last Documented by 01/20/2024 Physician Specified Last noemi armas on 01/20/2024; 12:56 PM, Parmjit Giraldo PA-C; [facility], [facility] Active Problems & Conditions - Joint Pain in the Right Hip Chief Complaint The Chief Complaint is: R hip pain. Referred Here Referred by PCP. History of Present Illness Selina Olivera is a 63 year old female. - Symptoms nothing makes pain better walking and standing makes pain worse. - Allergy list reviewed - Problem list reviewed - Medication list reviewed - Sharp pain Symptoms - Stabbing - Pain is constant (100% of the time) - Pain is throbbing - Pain is dull, aching - Patient pain level from 1-10: 5 - Yes, previous treatment. PCP - - Review of medications documented Patient is here today complaints of right hip and thigh pain that radiates to the right knee has been ongoing since June of last year. It is worse when she tries to walk or stand has difficulty walking can not walk very far it does feel like she gets some relief when she is hunched over a cart. She is tried icy Hot Ice Flexeril. She has a history of back pain and does take Wayne 10 three times a day. Pain with the role radiate into the right groin area she states. She also went through a vascular workup which was negative for any DVT or peripheral vascular disease. No bowel or bladder issues with this. Patient is also on Plavix Current Medication - ALPRAZolam 1 MG Oral Tablet 30 days, 0 refills - Atorvastatin Calcium 40 MG Oral Tablet 30 days, 0 refills - Benzonatate 200 MG Oral Capsule, conventional 30 days, 0 refills - Bevespi Aerosphere 9-4.8 MCG/ACT Inhalation Aerosol 30 days, 0 refills - Clopidogrel Bisulfate 75 MG Oral Tablet 30 days, 0 refills - Cyclobenzaprine HCl 10 MG Oral Tablet 30 days, 0 refills - Cyclobenzaprine HCl 10 MG Oral Tablet 30 days, 0 refills - Estradiol 1 MG Oral Tablet 30 days, 0 refills - HYDROcodone-Acetaminophen 10-325 MG Oral Tablet 30 days, 0 refills - Topiramate 200 MG Oral Tablet 30 days, 0 refills Past Medical/Surgical History Diagnoses: Heart disease. Irregular Heartbeat Past medical and surgical history non-contributory. Surgical: - Past Surgical History: stents - Hysterectomy Social History Yes, current smoker. Current diet: No recent change in diet. Caffeine use: Caffeine use. Alcohol: Not using alcohol. Drug Use: Not using drugs. Habits: Not exercising regularly. Allergies - No Known Allergies Family History Cancer Heart disease Stroke / Seizures Osteoporosis Rheumatoid arthritis Review Of Systems Systemic: Feeling tired. No recent weight loss and no recent weight gain. Head: Headache. No sinus pain. Eyes: No vision problems and no Cataracts. Glasses/Contacts. No Glaucoma. Otolaryngeal: No hearing loss and no tinnitus. Cardiovascular: No chest pain or discomfort. Palpitations. No Hypertension and no High Cholesterol. Pulmonary: Daytime asthma symptoms and chronic cough. No wheezing. Gastrointestinal: No heartburn and no abdominal pain. No Indigestion, no Peptic Ulcer, no GI Stomach Bleed, and no Ulcers. Acid Reflux. Endocrine: No hot flashes, no muscle weakness, no Diabetes, no Hypothyroid, and no Hyperthyroid. Hematologic: No easy bleeding. A tendency for easy bruising. No Anemia. Musculoskeletal: Arthritis and lower back pain. No soft tissue swelling and no localized joint pain. Neurological: No dizziness and no convulsions. Numbness. Psychological: Anxiety. No emotional lability. Depression and insomnia. Not crying for no reason. Skin: No dry skin. No Ulcers. Scars. No rash. Allergic and Immunologic: No complaint of seasonal allergic reaction. Physical Findings - Vitals taken 01/20/2024 09:08 am mbb Height 65 in Weight 123 lbs Body Mass Index 20.5 kg/m2 Body Surface Area 1.6 m2 Pain Level 5 Pleasant oriented x3. She is minimal pain with right hip range motion with the external rotation She is 5/5 EHL gastrocs quadriceps tibialis anterior strength bilaterally Blunted Achilles and patellar reflexes bilaterally negative straight leg raise bilaterally Tests Outside facility x-rays of the right hip were negative Four views lumbar spine shows degenerative changes with the back degenerative scoliosis in his spondylolisthesis at L3-L4 01/20/2024 Doppler ultrasound was negative in her arterial duplex stated no stenosis Assessment - Overweight Degenerative scoliosis L3-L4 spondylolisthesis possible stenosis Lumbar DDD Previous Tests Imaging: X-Ray: An X-ray was performed 11/27/2023. Counseling/Education - Tobacco non-user - Use of tobacco assessment performed - Lose weight Plan StartCited - Pain in right hip Radiology/MRI: MRI Lumbar Spine EndCited Patient was seen by myself Parmjit Giraldo PA-C. Patient will follow up with myself and Dr. Iqbal after we get a lumbar spine MRI likely she has some stenosis with this we will see her back after that. Maybe a candidate for injections versus surgery Notes This dictation was done with voice recognition software and may contain errors and omissions. Care Team - ELICEO AHMADI MD - DIRECTOR RECORDS MANAGEMENT
--- OUTSIDE RECORDS SUMMARY | 2024-10-21 10:06 | XMS_ITS | Clinical Summary ---
Author Organization [facility] , [facility] Address [address] [place] [address] Phone Care Team Providers Care Cleaner Window Name Role Phone Rasheed YOU, Miller Pedroza Unavailable [phone] GALDINO YOU, ELICEO Primary Care Provider [phone] Reason for Visit and Chief Complaint The Chief Complaint is: LBP Problems Includes: Problems addressed during this encounter and other active Problems All Visits Onset Date Resolved Date Provider Condition S tatus Lumbar Spine Painful on Movement 07/08/2024 Parmjit Giraldo PA-C Active Last Documented On 5 8:10AM ; [facility] Joint Pain in the Right Hip 01/20/2024 Parmjit Giraldo PA-C Active Last Documented On 4 8:40AM ; [facility] Plan of Treatment Patient was seen by myself and Dr. [...] as she is already on pain medicine. - Last Documented On 09/12/2024 9:13AM ; [facility], [facility] Pending Tests Order Diagnosis Results Due Ordering P rovider Therapy - Physical Therapy Lumbar Low back pain, unspecified 09/08/24 Miller Iqbal MD Last Documented On 5 9:13AM ; [facility], [facility] Radiology - MRI MRI Lumbar Spine Low back pain, unspecifie d 09/22/24 Miller Iqbal MD Last Documented On 5 9:13AM ; [facility], [facility] Future Appointments Date Time Location Provi bran Follow Up 01/05/2025 11:00AM [facility] [place] Last Documented On 5 9:21AM ; [facility] Assessments Includes: Assessments from this encounter Findings L3-S1 fusion - Last Documented On 09/12/2024 9:13AM ; [facility] Adjacent segment L2-L3 disease - Last Documented On 09/12/2024 9:13AM ; [facility] Medical Equipment - Implanted Devices Includes: Current Devices No Medical Equipment Recorded Medications Includes: Medications discussed during this encounter and other current Medications Current Medications (continue as prescribed) Gabapentin 300 MG Oral Capsule 06/14/2024 Provider: Miller Iqbal MD Diagnosis: Last Documented On 4 1:11PM By Al Michael ; [facility] oxyCODONE HCl 5 MG Oral Tablet 06/14/2024 Provider: Miller Iqbal MD Diagnosis: Last Documented On 4 1:11PM By Al Michael ; [facility], [facility] Famotidine 20 MG Oral Tablet 06/03/2024 Provider: Diagnosis: Last Documented On 5 8:11AM By Al Michael ; [facility], [facility] Pregabalin 75 MG Oral Capsule 06/03/2024 Provider: Diagnosis: Last Documented On 4 1:11PM By Al Michael ; [facility] buPROPion HCl ER (XL) 300 MG Oral Tablet Extended Release 24 Hour 06/03/2024 Provider: Diagnosis: Last Documented On 4 1:11PM By Al Michael ; [facility], [facility] Clopidogrel Bisulfate 75 MG Oral Tablet 01/12/2024 P rovider: Diagnosis: Last Documented On 4 8:41AM By Shyam Knight ; [facility], [facility] Benzonatate 200 MG Oral Capsule, conventional 01/12/20 Provider: Diagnosis: Last Documented On 4 8:41AM By Shyam Knight ; [facility] HYDROcodone-Acetaminophen 10-325 MG Oral Tablet 2023 Provider: ELICEO AHMADI MD Diagnosis: Last Documented On 4 8:41AM By Shyam Knight ; [facility] Cyclobenzaprine HCl 10 MG Oral Tablet 01/05/2024 Pro vider: ELICEO AHMADI MD Diagnosis: Last Documented On 4 8:41AM By Shyam Knight ; [facility] Topiramate 200 MG Oral Tablet 12/28/2023 Provider: ELICEO AHMADI MD Diagnosis: Last Documented On 4 8:41AM By Shyam Knight ; [facility] Estradiol 1 MG Oral Tablet 12/28/2023 Provider: Maday AHMADI MD Diagnosis: Last Documented On 4 8:41AM By Shyam Knight ; [facility] Bevespi Aerosphere 9-4.8 MCG/ACT Inhalation Aerosol Provider: Diagnosis: Last Documented On 4 8:41AM By Shyam Knight ; [facility] ALPRAZolam 1 MG Oral Tablet 12/28/2023 Provider: ELICEO AHMADI MD Diagnosis: Last Documented On 4 8:41AM By Shyam Knight ; [facility] Atorvastatin Calcium 40 MG Oral Tablet 12/25/2023 Pr ovider: Diagnosis: Last Documented On 4 8:41AM By Shyam Knight ; [facility] Cyclobenzaprine HCl 10 MG Oral Tablet 12/07/2023 Pro vider: ELICEO AHMADI MD Diagnosis: Last Documented On 4 8:41AM By Shyam Knight ; [facility] Past Medications on file Neurontin 300 MG Oral Capsule 08/09/2024 - 09/08/2024 Provider: Miller Iqbal MD Diagnosis: three times a day Last Documented On 5 3:50PM By Miller Iqbal ; [facility] oxyCODONE HCl 5 MG Oral Capsule 07/08/2024 - Provider: Miller Iqbal MD Diagnosis: Take 1 tablet every 8 hrs prn for breakthrough p ain Last Documented On 5 8:40AM By Miller Iqbal ; [facility] Neurontin 300 MG Oral Capsule 06/14/2024 - 08/13/2024 Provider: Miller Iqbal MD Diagnosis: three times a day Last Documented On 4 10:40AM By Miller Iqbal ; [facility] oxyCODONE HCl 5 MG Oral Tablet 06/14/2024 - 06/29/2024 Provider: Miller Iqbal MD Diagnosis: 1 tab every 6 hrs prn pain 1 tab every 6 hrs prn breakthrough pain Last Documented On 4 10:39AM By Miller Iqbal ; [facility] Medications Administered Includes: Administered Medications from this encounter No Administered Medications Recorded Vital Signs Includes: Vital Signs from this encounter Vital Name 09/08/2024 11:02A Height (in) 64 Weight (lb) 144 Body Mass Index 24.7 Body Surface Area 1.7 Pain Level 5 Note: PW Last Documented: On 09/08/2024 11:02A M ; [facility] Results Includes: Results discussed during this encounter No Results Recorded For Specified Dates History of Present Illness Includes: History of Present Illness from this encounter ENID Olivera is a 64 year old female. [...] is hydrocodone 10 isn't helping the pain Social History Description Last Updated Caffeine use 01/20/2024 Last Documented On 5 10:45AM ; [facility] Yes, current smoker. 01/20/2024 Last Documented On 5 10:45AM ; [facility] No recent change in diet 01/20/2024 Last Documented On 5 10:45AM ; [facility] Not exercising regularly 01/20/2024 Last Documented On 5 10:45AM ; [facility] Not using alcohol 01/20/2024 Last Documented On 5 10:45AM ; [facility] Not using drugs 01/20/2024 Last Documented On 5 10:45AM ; [facility] Smoking Status Unknown Procedures and Surgical History Includes: Procedures from this encounter Procedures Code Diagnosis Performing Provider Service Location Service Date X-RAY EXAM OF LOWER SPINE 2-3 VIEWS LIMITED 93114 Fusion of spine, lumbar region Miller Iqbal MD [facility] 09/08/2024 Last Documented On 5 2:36PM ; [facility] an X-ray was performed 11/27/2023 43650 Last Documented On 5 10:45AM ; [facility] an MRI was performed 03/02/2024 [facility] ~MRI LSPINE 7 [id number] Last Documented On 5 10:45AM ; [facility], [facility] Surgical History Last Updated History of back surgery L3-S1 Open Decom pression & Fusion 06/08/24 09/12/2024 Last Documented On 5 9:13AM ; [facility] History of hysterectomy 01/20/2024 Last Documented On 5 10:45AM ; [facility] Past Surgical History: stents 01/20/2024 Last Documented On 5 10:45AM ; [facility] Medical History Includes: Medical History addressed during this encounter Description Last Updated History of heart disease 01/20/2024 Last Documented On 5 10:45AM ; [facility] History of Irregular Heartbeat 4 Last Documented On 5 10:45AM ; [facility] Family History Includes: Family History addressed during this encounter Description Last Updated Family history of cancer 01/20/2024 Last Documented On 5 10:45AM ; [facility] Family history of heart disease 01/20/20 24 Last Documented On 5 10:45AM ; [facility] Family history of osteoporosis 4 Last Documented On 5 10:45AM ; [facility] Family history of rheumatoid arthritis 0 01/20/2024 Last Documented On 5 10:45AM ; [facility] Stroke / Seizures 01/20/2024 Last Documented On 5 10:45AM ; [facility] Review of Systems Includes: Review of Systems from this encounter Systemic: Feeling tired. No recent weight loss [...] Immunologic: No complaint of seasonal allergic reaction. Mental Status Includes: Mental Status from this encounter Description Anxiety Functional Status Includes: Functional Status from this encounter No Functional Status Recorded Physical Exam Includes: Physical Exam from this encounter Allergies Includes: Active Allergies No Known Allergies Encounters Encounter Provider Location Date Check-In Time Check- Out Time Diagnosis Follow Up Miller Iqbal MD [facility] 5 10:36AM 11:43AM Insurance Includes: Active Insurance Policies Plan Name Member ID Group # Subscriber Relationship Effect rizwan Dates 1 - [employer] [facility] [id number] Selina Olivera Self Clinical Notes Includes: Clinical Notes from this encounter * Progress note Date Encounter Last Documented by 09/08/2024 Follow Up Last documented on 09/12/2024; 9:13 AM, Miller Iqbal MD; [facility] Active Problems & Conditions - [...] MRI Scan: An MRI was performed 03/02/2024 [facility]. Available previous imaging studies were reviewed [...] Care Team - ELICEO AHMADI MD - QUALITY CONTROL ASSISTANT Health Reminders - Assess BMI satisfied 09/08/2024. - Assess Tobacco Use satisfied 09/08/2024.
--- OUTSIDE RECORDS SUMMARY | 2024-10-21 10:06 | XMS_ITS ---
Care Plan - [facility], [facility] Created on: October 21, 2024 Selina Olivera : 1960 Sex: Female Author Organization [facility] Address [address] [place] [id number] Phone Care Team Providers Care Physician Name Role Phone Rasheed YOU, Miller Pedroza Unavailable [phone] GALDINO YOU, ELICEO Primary Care Provider [phone]
--- OUTSIDE RECORDS SUMMARY | 2024-10-21 10:06 | XMS_ITS | Clinical Summary ---
Author Organization [facility] , [facility] Address [address] [place] [address] Phone Care Team Providers Care Tin Flipper Name Role Phone Rasheed YOU, Miller Rodriguez [phone] GALDINO YOU, ELICEO Primary Care Provider [phone] Reason for Visit and Chief Complaint The Chief Complaint is: LBP Problems Includes: Problems addressed during this encounter and other active Problems All Visits Onset Date Resolved Date Provider Condition S tatus Lumbar Spine Painful on Movement 07/08/2024 Parmjit Giraldo PA-C Active Last Documented On 5 8:10AM ; [facility] Joint Pain in the Right Hip 01/20/2024 Parmjit Giraldo PA-C Active Last Documented On 4 8:40AM ; [facility] Plan of Treatment Patient was seen by myself and Dr. Rasheed Giraldo PA-C. Patient will follow up 2-3 months repeat lumbar spine x-rays we feels okay for her to be on the pregabalin she has also tried Neurontin with this. But she says she has been on the pregabalin long enough to see which 1 helped her better. She has been getting that from her family physician. We gave her a brochure of a spinal cord stimulator potentially this to consider also. We do feel that she would need have permanent restrictions of no bending no lifting and no sitting or standing greater than 1 hour - Last Documented On 10/20/2024 9:20AM ; [facility], [facility] Pending Tests Order Diagnosis Results Due Ordering P rovider Radiology - MRI MRI Lumbar Spine Low back pain, unspecified 09/22/24 Miller Iqbal MD Last Documented On 5 9:13AM ; [facility], [facility] Future Appointments Date Time Location Provi bran Follow Up 01/05/2025 11:00AM [facility] Miller Iqbal MD Last Documented On 5 9:21AM ; [facility], [facility] Assessments Includes: Assessments from this encounter Findings L2-L3 adjacent segment disease previous fusion L3-S1-06/08/24 - Last Documented On 10/20/2024 9:20AM ; [facility] Medical Equipment - Implanted Devices Includes: Current Devices No Medical Equipment Recorded Medications Includes: Medications discussed during this encounter and other current Medications Current Medications (continue as prescribed) Gabapentin 300 MG Oral Capsule 06/14/2024 Provider: Miller Iqbal MD Diagnosis: Last Documented On 4 1:11PM By Al Michael ; [facility], [facility] oxyCODONE HCl 5 MG Oral Tablet 06/14/2024 Provider: Miller Iqbal MD Diagnosis: Last Documented On 4 1:11PM By Al Michael ; [facility], [facility] Famotidine 20 MG Oral Tablet 06/03/2024 Provider: Diagnosis: Last Documented On 5 8:11AM By Al Michael ; [facility], [facility] Pregabalin 75 MG Oral Capsule 06/03/2024 Provider: Diagnosis: Last Documented On 4 1:11PM By Al Michael ; [facility], [facility] buPROPion HCl ER (XL) 300 MG Oral Tablet Extended Release 24 Hour 06/03/2024 Provider: Diagnosis: Last Documented On 4 1:11PM By Al Michael ; [facility], [facility] Clopidogrel Bisulfate 75 MG Oral Tablet 01/12/2024 P forrestder: Diagnosis: Last Documented On 4 8:41AM By Shyam Knight ; [facility], [facility] Benzonatate 200 MG Oral Capsule, conventional 01/12/20 Provider: Diagnosis: Last Documented On 4 8:41AM By Shyam Knight ; [facility], [facility] HYDROcodone-Acetaminophen 10-325 MG Oral Tablet 2023 Provider: ELICEO AHMADI MD Diagnosis: Last Documented On 4 8:41AM By Shyam Knight ; [facility], [facility] Cyclobenzaprine HCl 10 MG Oral Tablet 01/05/2024 Pro vider: ELICEO AHMADI MD Diagnosis: Last Documented On 4 8:41AM By Shyam Knight ; [facility], [facility] Topiramate 200 MG Oral Tablet 12/28/2023 Provider: ELICEO AHMADI MD Diagnosis: Last Documented On 4 8:41AM By Shyam Knight ; [facility], [facility] Estradiol 1 MG Oral Tablet 12/28/2023 Provider: Maday AHMADI MD Diagnosis: Last Documented On 4 8:41AM By Shyam Knight ; [facility], [facility] Bevespi Aerosphere 9-4.8 MCG/ACT Inhalation Aerosol Provider: Diagnosis: Last Documented On 4 8:41AM By Shyam Knight ; [facility], [facility] ALPRAZolam 1 MG Oral Tablet 12/28/2023 Provider: ELICEO AHMADI MD Diagnosis: Last Documented On 4 8:41AM By Shyam Knight ; [facility], [facility] Atorvastatin Calcium 40 MG Oral Tablet 12/25/2023 Pr ovider: Diagnosis: Last Documented On 4 8:41AM By Shyam Knight ; [facility], [facility] Cyclobenzaprine HCl 10 MG Oral Tablet 12/07/2023 Pro vider: ELICEO AHMADI MD Diagnosis: Last Documented On 4 8:41AM By Shyam Knight ; [facility], [facility] Past Medications on file Neurontin 300 MG Oral Capsule 08/09/2024 - 09/08/2024 Provider: Miller Iqbal MD Diagnosis: three times a day Last Documented On 5 3:50PM By Miller Iqbal ; [facility], [facility] oxyCODONE HCl 5 MG Oral Capsule 07/08/2024 - Provider: Miller Iqbal MD Diagnosis: Take 1 tablet every 8 hrs prn for breakthrough p ain Last Documented On 5 8:40AM By Miller Iqbal ; [facility], [facility] Neurontin 300 MG Oral Capsule 06/14/2024 - [...] Vital Signs from this encounter Vital Name 10/20/2024 09:03A Height (in) 64 Weight (lb) 140 Body Mass Index 24 Body Surface Area 1.7 Pain Level 8 Last Documented: On 10/20/2024 9:04AM ; [facility] Results Includes: Results discussed during this encounter No Results Recorded For Specified Dates History of Present Illness Includes: History of Present Illness from this encounter ENID Olivera is a 64 year old female. - Allergy list reviewed - Problem list reviewed - Medication list reviewed - - Review of medications documented Patient is here today for follow-up of her L3-S1 fusion surgery date was in June 2024. 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 Her family physician had placed her on pregabalin him she also takes oxycodone. This bothers her a lot the sitting standing lifting bending. Social History Description Last Updated Caffeine use 01/20/2024 Last Documented On 5 8:48AM ; [facility] Yes, current smoker. 01/20/2024 Last Documented On 5 8:48AM ; [facility], [facility] No recent change in diet 01/20/2024 Last Documented On 5 8:48AM ; [facility], [facility] Not exercising regularly 01/20/2024 Last Documented On 5 8:48AM ; [facility] Not using alcohol 01/20/2024 Last Documented On 5 8:48AM ; [facility] Not using drugs 01/20/2024 Last Documented On 5 8:48AM ; [facility] Smoking Status Unknown Procedures and Surgical History Includes: Procedures from this encounter Procedures Code Diagnosis Performing Provider Service L ocation Service Date an X-ray was performed 11/27/2023 67096 Last Documented On 5 8:48AM ; [facility] an MRI was performed 03/02/2024 [facility] ~MRI LSPINE 7 6498 Last Documented On 5 8:48AM ; [facility], [facility] Surgical History Last Updated History of back surgery L3-S1 Open Decom pression & Fusion 06/08/24 09/12/2024 Last Documented On 5 8:48AM ; [facility] History of hysterectomy 01/20/2024 Last Documented On 5 8:48AM ; [facility] Past Surgical History: stents 01/20/2024 Last Documented On 5 8:48AM ; [facility] Medical History Includes: Medical History addressed during this encounter Description Last Updated History of heart disease 01/20/2024 Last Documented On 5 8:48AM ; [facility] History of Irregular Heartbeat 4 Last Documented On 5 8:48AM ; [facility] Past medical and surgical history non-co ntributory 01/20/2024 Last Documented On 5 8:48AM ; [facility], [facility] Family History Includes: Family History addressed during this encounter Description Last Updated Family history of cancer 01/20/2024 Last Documented On 5 8:48AM ; [facility] Family history of heart disease 01/20/20 24 Last Documented On 5 8:48AM ; [facility], [facility] Family history of osteoporosis 4 Last Documented On 5 8:48AM ; [facility], [facility] Family history of rheumatoid arthritis 0 01/20/2024 Last Documented On 5 8:48AM ; [facility], [facility] Stroke / Seizures 01/20/2024 Last Documented On 5 8:48AM ; [facility], [facility] Review of Systems Includes: Review of Systems [...] Time Diagnosis Follow Up Miller Iqbal MD [facility] 5 8:42AM 9:18AM Insurance Includes: Active Insurance Policies Plan Name Member ID Group # Subscriber Relationship Effect rizwan Dates 1 - [employer] [facility] [id number] Selina Olivera Self Clinical Notes Includes: Clinical Notes from this encounter No Clinical Notes Recorded
--- OUTSIDE RECORDS SUMMARY | 2024-10-21 10:06 | XMS_ITS | Clinical Summary ---
Author Organization [facility] [place] Address [address] [place] [address] Phone Care Team Providers Care Fixed Route Operator Name Role Phone Rasheed YOU, Miller Pedroza Unavailable [phone] GALDINO YOU, ELICEO Primary Care Provider [phone] Reason for Visit and Chief Complaint The Chief Complaint is: LBP Problems Includes: Problems addressed during this encounter and other active Problems Current Visit Onset Date Resolved Date Provider Conditio n Status Lumbar Spine Painful on Movement 07/08/2024 Parmjit Giraldo PA-C Active Last Documented On 5 8:10AM ; [facility] [place] Past Visits Onset Date Resolved Date Provider Condition Status Joint Pain in the Right Hip 01/20/2024 Parmjit Giraldo PA-C Active Last Documented On 4 8:40AM ; [facility] [place] Plan of Treatment Patient was seen by myself Parmjit Giraldo PA-C. Patient will follow up at her next appointment in [address] Iqbal she can try some heat ibuprofen with this continue to walk emphasize trying to stand more upright with a walker we will give her 1 last prescription for some breakthrough pain. - Last Documented On 07/08/2024 8:35AM ; [facility] [place] Pending Tests Order Diagnosis Results Due Ordering P rovider Radiology - MRI MRI Lumbar Spine Pain in right hip 4 Parmjit Giraldo PA-C Last Documented On 4 12:56PM ; [facility] [place] Future Appointments Date Time Location Provi bran Follow Up 01/05/2025 11:00AM [facility] Miller Iqbal MD Last Documented On 5 9:21AM ; [facility] [place] Assessments Includes: Assessments from this encounter Findings L3-S1 fusion 06/08/24 - Last Documented On 07/08/2024 8:35AM ; [facility] [place] Low back pain - Last Documented On 07/08/2024 8:35AM ; [facility] [place] Medical Equipment - Implanted Devices Includes: Current Devices No Medical Equipment Recorded Medications Includes: Medications discussed during this encounter and other current Medications New / Renewed during this visit Miller Iqbal MD on 07/08/2024 oxyCODONE HCl 5 MG Oral Capsule Provider: Miller Iqbal MD 10 day supply: 30 capsule, 0 refills Diagnosis: Take 1 tablet every 8 hrs pr n for breakthrough pain Pharmacy: [facility] - [address] [place] [address] , [place], [phone] - Last Documented On 8:40AM By Miller Iqbal ; [facility] [place] Current Medications (continue as prescribed) Gabapentin 300 MG Oral Capsule 06/14/2024 Provider: Miller Iqbal MD Diagnosis: Last Documented On 4 1:11PM By Al Michael ; [facility] [place] oxyCODONE HCl 5 MG Oral Tablet 06/14/2024 Provider: Miller Iqbal MD Diagnosis: Last Documented On 4 1:11PM By Al Michael ; [facility] [place] Famotidine 20 MG Oral Tablet 06/03/2024 Provider: Diagnosis: Last Documented On 5 8:11AM By Al Michael ; [facility] [place] Pregabalin 75 MG Oral Capsule 06/03/2024 Provider: Diagnosis: Last Documented On 4 1:11PM By Al Michael ; [facility] [place] buPROPion HCl ER (XL) 300 MG Oral Tablet Extended Release 24 Hour 06/03/2024 Provider: Diagnosis: Last Documented On 4 1:11PM By Al Michael ; [facility] [place] Clopidogrel Bisulfate 75 MG Oral Tablet 01/12/2024 Hank claytonder: Diagnosis: Last Documented On 4 8:41AM By Shyam Knight ; [facility] [place] Benzonatate 200 MG Oral Capsule, conventional 01/12/20 Provider: Diagnosis: Last Documented On 4 8:41AM By Shyam Knight ; [facility] HYDROcodone-Acetaminophen 10-325 MG Oral Tablet 2023 Provider: ELICEO AHMADI MD Diagnosis: Last Documented On 4 8:41AM By Shyam Knight ; [facility] Cyclobenzaprine HCl 10 MG Oral Tablet 01/05/2024 Pro vider: ELICEO AHMADI MD Diagnosis: Last Documented On 4 8:41AM By Shyam Knigth ; [facility] Topiramate 200 MG Oral Tablet 12/28/2023 Provider: ELICEO AHMADI MD Diagnosis: Last Documented On 4 8:41AM By Shyam Knight ; [facility] Estradiol 1 MG Oral Tablet 12/28/2023 Provider: Maday AHMADI MD Diagnosis: Last Documented On 4 8:41AM By Shyam Knight ; [facility] Bevespi Aerosphere 9-4.8 MCG/ACT Inhalation Aerosol Provider: Diagnosis: Last Documented On 4 8:41AM By Shyam Knight ; [facility] ALPRAZolam 1 MG Oral Tablet 12/28/2023 Provider: ELICEO AHMADI MD Diagnosis: Last Documented On 4 8:41AM By Shyam Knight ; [facility] Atorvastatin Calcium 40 MG Oral Tablet 12/25/2023 Pr ovider: Diagnosis: Last Documented On 4 8:41AM By Shyam Knight ; [facility] Cyclobenzaprine HCl 10 MG Oral Tablet 12/07/2023 Pro vider: ELICEO AHMADI MD Diagnosis: Last Documented On 4 8:41AM By Shyam Knight ; [facility] Past Medications on file Neurontin 300 MG Oral Capsule 08/09/2024 - 09/08/2024 Provider: Miller Iqbal MD Diagnosis: three times a day Last Documented On 5 3:50PM By Miller Iqbal ; [facility] Neurontin 300 MG Oral Capsule [...] Vital Signs from this encounter Vital Name 07/08/2024 08:12A Height (in) 64 Weight (lb) 129 Body Mass Index 22.1 Body Surface Area 1.6 Pain Level 8 Last Documented: On 07/08/2024 8:15AM ; [facility] Results Includes: Results discussed [...] to walk with. Normally she does take Warren 10 normally for pain and we gave her some medicine to have for breakthrough pain which was oxycodone post surgery Social History Description Last Updated Caffeine use 01/20/2024 Last Documented On 5 8:11AM ; [facility] Yes, current smoker. 01/20/2024 Last Documented On 5 8:11AM ; [facility] No recent change in diet 01/20/2024 Last Documented On 5 8:11AM ; [facility] Not exercising regularly 01/20/2024 Last Documented On 5 8:11AM ; [facility] Not using alcohol 01/20/2024 Last Documented On 5 8:11AM ; [facility] Not using drugs 01/20/2024 Last Documented On 5 8:11AM ; [facility] Smoking Status Unknown Procedures and Surgical History Includes: Procedures from this encounter Procedures Code Diagnosis Performing Provider Service Location Service Date X-RAY EXAM OF LOWER SPINE 2-3 VIEWS LIMITED 66339 Fusion of spine, lumbar region Parmjit Giraldo PA-C [facility] 07/08/2024 Last Documented On 5 4:20PM ; [facility] an X-ray was performed 11/27/2023 [id number] Last Documented On 5 8:11AM ; [facility] an MRI was performed 03/02/2024 [facility] ~MRI LSPINE 7 [id number] Last Documented On 5 8:11AM ; [facility] Surgical History Last Updated History of hysterectomy 01/20/2024 Last Documented On 5 8:11AM ; [facility] Past Surgical History: stents 01/20/2024 Last Documented On 5 8:11AM ; [facility] Medical History Includes: Medical History addressed during this encounter Description Last Updated History of heart disease 01/20/2024 Last Documented On 5 8:11AM ; [facility] History of Irregular Heartbeat 4 Last Documented On 5 8:11AM ; [facility] [place] Past medical and surgical history non-co ntributory 01/20/2024 Last Documented On 5 8:11AM ; [facility] Family History Includes: Family History addressed during this encounter Description Last Updated Family history of cancer 01/20/2024 Last Documented On 5 8:11AM ; [facility] Family history of heart disease 01/20/20 24 Last Documented On 5 8:11AM ; [facility] Family history of osteoporosis 4 Last Documented On 5 8:11AM ; [facility] [place] Family history of rheumatoid arthritis 0 01/20/2024 Last Documented On 5 8:11AM ; [facility] Stroke / Seizures 01/20/2024 Last Documented On 5 8:11AM ; [facility] Review of Systems Includes: Review of Systems [...] Date Check-In Time Check- Out Time Diagnosis Post Op Parmjit Giraldo PA-C [facility] 5 8:04AM 8:34AM Insurance Includes: Active Insurance Policies Plan Name Member ID Group # Subscriber Relationship Effect rizwan Dates 1 - [employer]na [facility] [id number] Selina Olivera Self Clinical Notes Includes: Clinical Notes from this encounter * Progress note Date Encounter Last Documented by 07/08/2024 Post Op Last documented on 07/08/2024; 8:35 AM, Parmjit Giraldo PA-C; [facility] Active Problems & Conditions - Joint Pain [...] to walk with. Normally she does take Warren 10 normally for pain and we gave [...] MRI Scan: An MRI was performed 03/02/2024 [facility]. Available previous imaging studies were reviewed Available [...] Care Team - ELICEO AHMADI MD - [facility] Health Reminders - Assess BMI satisfied 07/08/2024. - Assess Tobacco Use satisfied 07/08/2024.
--- OUTSIDE RECORDS SUMMARY | 2024-10-21 10:06 | XMS_ITS | Clinical Summary ---
Author Organization [facility] Address [address] [place] [address] Phone Care Team Providers Care Rn Digestive Name Role Phone Rasheed YOU, Miller Pedroza Unavailable [phone] GALDINO YOU, ELICEO Primary Care Provider [phone] Reason for Visit and Chief Complaint The Chief Complaint is: LBP Problems Includes: Problems addressed during this encounter and other active Problems All Visits Onset Date Resolved Date Provider Condition S tatus Lumbar Spine Painful on Movement 07/08/2024 Parmjit Giraldo PA-C Active Last Documented On 5 8:10AM ; [facility], [facility] Joint Pain in the Right Hip 01/20/2024 Parmjit Giraldo PA-C Active Last Documented On 4 8:40AM ; [facility], [facility] Plan of Treatment Pending Tests Order Diagnosis Results Due Ordering P rovider Radiology - MRI MRI Lumbar Spine Low back pain, unspecified 09/22/24 Miller Iqbal MD Last Documented On 5 9:13AM ; [facility] Future Appointments Date Time Location Provi bran Follow Up 01/05/2025 11:00AM [facility] Miller Ibqal MD Last Documented On 5 9:21AM ; [facility] Assessments Includes: Assessments from this encounter No Assessments Recorded Medical Equipment - Implanted Devices Includes: Current Devices No Medical Equipment Recorded Medications Includes: Medications discussed during this encounter and other current Medications Current Medications (continue as prescribed) Gabapentin 300 MG Oral Capsule 06/14/2024 Provider: Miller Iqbal MD Diagnosis: Last Documented On 4 1:11PM By Al Michael ; [facility], [facility] oxyCODONE HCl 5 MG Oral Tablet 06/14/2024 Provider: Miller Iqbal MD Diagnosis: Last Documented On 4 1:11PM By Al Michael ; [facility] Famotidine 20 MG Oral Tablet 06/03/2024 Provider: Diagnosis: Last Documented On 5 8:11AM By Al Michael ; [facility] Pregabalin 75 MG Oral Capsule 06/03/2024 Provider: Diagnosis: Last Documented On 4 1:11PM By Al Michael ; [facility] buPROPion HCl ER (XL) 300 MG Oral Tablet Extended Release 24 Hour 06/03/2024 Provider: Diagnosis: Last Documented On 4 1:11PM By Al Michael ; [facility] Clopidogrel Bisulfate 75 MG Oral Tablet 01/12/2024 Hank claytonder: Diagnosis: Last Documented On 4 8:41AM By Shyam Knight ; [facility] Benzonatate 200 MG Oral Capsule, conventional 01/12/20 Provider: Diagnosis: Last Documented On 4 8:41AM By Shyam Knight ; [facility] HYDROcodone-Acetaminophen 10-325 MG Oral Tablet 2023 Provider: ELICEO AHMADI MD Diagnosis: Last Documented On 4 8:41AM By Shyam Knight ; [facility] Cyclobenzaprine HCl 10 MG Oral Tablet 01/05/2024 Pro vider: ELICEO AHMADI MD Diagnosis: Last Documented On 4 8:41AM By Shyam Knight ; [facility] Topiramate 200 MG Oral Tablet 12/28/2023 Provider: ELICEO AHMADI MD Diagnosis: Last Documented On 4 8:41AM By Shyam Knight ; [facility] Estradiol 1 MG Oral Tablet 12/28/2023 Provider: Maday AHMADI MD Diagnosis: Last Documented On 4 8:41AM By Shyam Knight ; [facility] Bevespi Aerosphere 9-4.8 MCG/ACT Inhalation Aerosol Provider: Diagnosis: Last Documented On 4 8:41AM By Shyam Knight ; [facility] ALPRAZolam 1 MG Oral Tablet 12/28/2023 Provider: ELICEO AHMADI MD Diagnosis: Last Documented On 4 8:41AM By Shyam Knight ; [facility] Atorvastatin Calcium 40 MG Oral Tablet 12/25/2023 Pr ovider: Diagnosis: Last Documented On 4 8:41AM By Shyam Knight ; [facility] Cyclobenzaprine HCl 10 MG Oral Tablet 12/07/2023 Pro vider: ELICEO AHMADI MD Diagnosis: Last Documented On 4 8:41AM By Shyam Knight ; [facility] Past Medications on file Neurontin 300 MG Oral Capsule 08/09/2024 - 09/08/2024 Provider: Miller Iqbal MD Diagnosis: three times a day Last Documented On 5 3:50PM By Miller Iqbal ; [facility] oxyCODONE HCl 5 MG Oral Capsule 07/08/2024 - Provider: Miller Iqbal MD Diagnosis: Take 1 tablet every 8 hrs prn for breakthrough p ain Last Documented On 5 8:40AM By Miller Iqbal ; [facility] Neurontin 300 MG Oral Capsule 06/14/2024 - 08/13/2024 Provider: Miller Iqbal MD Diagnosis: three times a day Last Documented On 4 10:40AM By Miller Iqbal ; [facility] oxyCODONE HCl 5 MG Oral Tablet 06/14/2024 - 06/29/2024 Provider: Miller Iqbal MD Diagnosis: 1 tab every 6 hrs prn pain 1 tab every 6 hrs prn breakthrough pain Last Documented On 4 10:39AM By Miller Iqbal ; [facility] Medications Administered Includes: Administered Medications from this encounter No Administered Medications Recorded Results Includes: Results discussed during this encounter No Results Recorded For Specified Dates History of Present Illness Includes: History of Present Illness from this encounter ENID Olivera is a 64 year old female. - Allergy list reviewed - Problem list reviewed - Medication list reviewed - - Review of medications documented Social History Description Last Updated Caffeine use 01/20/2024 Last Documented On 5 10:48AM ; [facility] Yes, current smoker. 01/20/2024 Last Documented On 5 10:48AM ; [facility] No recent change in diet 01/20/2024 Last Documented On 5 10:48AM ; [facility], [facility] Not exercising regularly 01/20/2024 Last Documented On 5 10:48AM ; [facility] Not using alcohol 01/20/2024 Last Documented On 5 10:48AM ; [facility], [facility] Not using drugs 01/20/2024 Last Documented On 5 10:48AM ; [facility], [facility] Smoking Status Unknown Procedures and Surgical History Includes: Procedures from this encounter Procedures Code Diagnosis Performing Provider Service Location Service Date X-RAY EXAM OF LOWER SPINE 2-3 VIEWS LIMITED 06188 Fusion of spine, lumbar region Miller Iqbal MD [facility] 07/28/2024 Last Documented On 5 11:59AM ; [facility] an X-ray was performed 11/27/2023 [id number] Last Documented On 5 10:48AM ; [facility] an MRI was performed 03/02/2024 [facility] ~MRI LSPINE 7 2141 Last Documented On 5 10:48AM ; [facility], [facility] Surgical History Last Updated History of hysterectomy 01/20/2024 Last Documented On 5 10:48AM ; [facility], [facility] Past Surgical History: stents 01/20/2024 Last Documented On 5 10:48AM ; [facility], [facility] Medical History Includes: Medical History addressed during this encounter Description Last Updated History of heart disease 01/20/2024 Last Documented On 5 10:48AM ; [facility], [facility] History of Irregular Heartbeat 4 Last Documented On 5 10:48AM ; [facility], [facility] Past medical and surgical history non-co ntributory 01/20/2024 Last Documented On 5 10:48AM ; [facility], [facility] Family History Includes: Family History addressed during this encounter Description Last Updated Family history of cancer 01/20/2024 Last Documented On 5 10:48AM ; [facility] Family history of heart disease 01/20/20 24 Last Documented On 5 10:48AM ; [facility] Family history of osteoporosis 4 Last Documented On 5 10:48AM ; [facility] Family history of rheumatoid arthritis 0 01/20/2024 Last Documented On 5 10:48AM ; [facility] Stroke / Seizures 01/20/2024 Last Documented On 5 10:48AM ; [facility] Review of Systems Includes: Review [...] Exam Includes: Physical Exam from this encounter No Physical Exam Recorded Allergies Includes: Active Allergies No Known Allergies Encounters Encounter Provider Location Date Check-In Time Check- Out Time Diagnosis Post Op Miller Iqbal MD [facility] 5 10:37AM 11:20AM Insurance Includes: Active Insurance Policies Plan Name Member ID Group # Subscriber Relationship Effect rizwan Dates 1 - [employer] [facility] [id number] Selina Olviera Self Clinical Notes Includes: Clinical Notes from this encounter No Clinical Notes Recorded
--- OUTSIDE RECORDS SUMMARY | 2024-10-21 10:06 | XMS_ITS | Clinical Summary ---
Author Organization [facility] Address [address] [place] [address] Phone Care Team Providers Care Excel Analyst Name Role Phone Rasheed YOU, Miller Pedroza Unavailable [phone] GALDINO YOU, ELICEO Primary Care Provider [phone] Reason for Visit and Chief Complaint BRACE FITTING Problems Includes: Problems addressed during this encounter and other active Problems All Visits Onset Date Resolved Date Provider Condition S tatus Lumbar Spine Painful on Movement 07/08/2024 Parmjit Giraldo PA-C Active Last Documented On 5 8:10AM ; [facility] Joint Pain in the Right Hip 01/20/2024 Parmjit Giraldo PA-C Active Last Documented On 4 8:40AM ; [facility] Plan of Treatment Pending Tests Order Diagnosis Results Due Ordering P rovider Radiology - MRI MRI Lumbar Spine Low back pain, unspecified 09/22/24 Miller Iqbal MD Last Documented On 5 9:13AM ; [facility] Future Appointments Date Time Location Provi bran Follow Up 01/05/2025 11:00AM [facility] Miller Iqbal MD Last Documented On 5 9:21AM ; [facility] Assessments Includes: Assessments from this encounter No Assessments Recorded Medical Equipment - Implanted Devices Includes: Current Devices No Medical Equipment Recorded Medications Includes: Medications discussed during this encounter and other current Medications Current Medications (continue as prescribed) Gabapentin 300 MG Oral Capsule 06/14/2024 Provider: Miller Iqbal MD Diagnosis: Last Documented On 4 1:11PM By Al Michael ; [facility] oxyCODONE HCl 5 MG Oral Tablet 06/14/2024 Provider: Miller Iqbal MD Diagnosis: Last Documented On 4 1:11PM By Al Michael ; [facility] Famotidine 20 MG Oral Tablet 06/03/2024 Provider: Diagnosis: Last Documented On 5 8:11AM By Al Michael ; [facility] Pregabalin 75 MG Oral Capsule 06/03/2024 Provider: Diagnosis: Last Documented On 4 1:11PM By Al Michael ; [facility] buPROPion HCl ER (XL) 300 MG Oral Tablet Extended Release 24 Hour 06/03/2024 Provider: Diagnosis: Last Documented On 4 1:11PM By Al Michael ; [facility] Clopidogrel Bisulfate 75 MG Oral Tablet 01/12/2024 Hank claytonder: Diagnosis: Last Documented On 4 8:41AM By Shyam Knight ; [facility] Benzonatate 200 MG Oral Capsule, conventional 01/12/20 Provider: Diagnosis: Last Documented On 4 8:41AM By Shyam Knight ; [facility] HYDROcodone-Acetaminophen 10-325 MG Oral Tablet 2023 Provider: ELICEO AHMADI MD Diagnosis: Last Documented On 4 8:41AM By Shyam Knight ; [facility] Cyclobenzaprine HCl 10 MG Oral Tablet 01/05/2024 Pro vider: ELICEO AHMADI MD Diagnosis: Last Documented On 4 8:41AM By Shyam Knight ; [facility] Topiramate 200 MG Oral Tablet 12/28/2023 Provider: ELICEO AHMADI MD Diagnosis: Last Documented On 4 8:41AM By Shyam Knight ; [facility] Estradiol 1 MG Oral Tablet 12/28/2023 Provider: Maday AHMADI MD Diagnosis: Last Documented On 4 8:41AM By Shyam Knight ; [facility] Bevespi Aerosphere 9-4.8 MCG/ACT Inhalation Aerosol Provider: Diagnosis: Last Documented On 4 8:41AM By Shyam Knight ; [facility] ALPRAZolam 1 MG Oral Tablet 12/28/2023 Provider: ELICEO AHMADI MD Diagnosis: Last Documented On 4 8:41AM By Shyam Knight ; [facility] Atorvastatin Calcium 40 MG Oral Tablet 12/25/2023 Pr ovider: Diagnosis: Last Documented On 4 8:41AM By Shyam Knight ; [facility] Cyclobenzaprine HCl 10 MG Oral Tablet 12/07/2023 Pro vider: ELICEO AHMADI MD Diagnosis: Last Documented On 4 8:41AM By [facility]am [facility] Medications Administered Includes: Administered Medications from this encounter No Administered Medications Recorded Results Includes: Results discussed during this encounter No Results Recorded For Specified Dates History of Present Illness Includes: History of Present Illness from this encounter No History of Present Illness Recorded Social History No Social History Recorded - Smoking Status Unknown Procedures and Surgical History Includes: Procedures from this encounter Procedures Code Diagnosis Performing Provider Service Location Service Date Horizon 627 lumbar [facility] [place] [id number] Fusion of spine, lumbar region Miller Iqbal MD [facility] 09/08/2024 Last Documented On 5 10:49AM ; [facility] Medical History Includes: Medical History addressed during this encounter No Medical History Recorded Family History Includes: Family History addressed during this encounter No Family History Recorded Review of Systems Includes: Review of Systems from this encounter No Review of Systems Recorded Mental Status Includes: Mental Status from this encounter No Mental Status Recorded Functional Status Includes: Functional Status from this encounter No Functional Status Recorded Physical Exam Includes: Physical Exam from this encounter No Physical Exam Recorded Allergies Includes: Active Allergies No Known Allergies Encounters Encounter Provider Location Date Check-In Time Check-Out Time Diagnosis BRACE FITTING [facility] 09/08/[facility]24 10:49AM 11:59PM Insurance Includes: Active Insurance Policies Plan Name Member ID Group # Subscriber Relationship Effect rizwan Dates 1 - [employer] [facility] [id number] Selina Olivera Self Clinical Notes Includes: Clinical Notes from this encounter No Clinical Notes Recorded
--- NOTE | 2024-10-21 10:09 | MM_ITS ---
PROCEDURE INFORMATION: Exam: MG Bilateral Screening 3D Mammography Exam date and time: 10/21/2024 10:29 AM Age: 64 years old Clinical indication: Screening examination. Indicates right breast soreness for 3-4 years. No family history of breast cancer. TECHNIQUE: Imaging protocol: Bilateral Screening tomosynthesis and 2D mammography including computer-aided detection (CAD) when performed. COMPARISON: 1. MG MM DIG SC MAMM IMPLANT BI CAD 10/07/2023 12:45 PM 2. MG MM DIG SC MAMM IMPLANT BI CAD 11/29/2021 3:11 PM FINDINGS: MAMMOGRAPHY: Breast composition: There are scattered areas of fibroglandular density. Mass: None. Architectural distortion: None. Calcifications: No suspicious calcifications. Asymmetric density: None. Skin thickening: None. Axillary adenopathy: None. Implants: Subpectoral saline implants. IMPRESSION: See comment Note history of right breast pain for 3-4 years, if of clinical concern, sonography could be added.Further evaluation of a painful abnormality should be based on clinical grounds regardless of radiographic findings or lack thereof. No mammographic evidence of malignancy. Annual screening is recommended unless otherwise clinically indicated. ASSESSMENT: BI-RADS Category 1: Negative.
== END 2024-10-21 23:59 | disposition home or self-care (01) ==
LOC: RAD 10:04
PROVIDERS: PCP Family Medicine; Visit Provider Family Medicine
DX: Z12.31 Encounter for screening mammogram for malignant neoplasm of breast (principal)
CPT/HCPCS: 77063; 77067

== ENCOUNTER 2024-11-17 15:56 | Outpatient (CLI) | payer OTHER, SELFPAY ==
[2024-11-17 17:09] LABS: Basophils # 0.1 K/mm3 (0-0.2); Basophils % 1.3 % (0.1-2.0); Eosinophils # 0.3 Kmm3 (0.0-0.4); Eosinophils % 4.7 % (0.1-12.0); Hematocrit 38.3 % (37.0-47.0); Hemoglobin 12.3 g/dL (12.2-16.2); Immature Granulocytes # 0.01 10^3uL; Immature Granulocytes % 0.2 %; Lymphocytes # 1.9 K/mm3 (0.7-4.5); Lymphocytes % 34.2 % (10-50); Mean Corpuscular HGB Conc 32.1 g/dL (31.8-35.4); Mean Corpuscular Hemoglobin 27.9 pg (27.0-31.2); Mean Corpuscular Volume 86.8 fl (81-99); Mean Platelet Volume 12.3 fl (7.4-10.4); Monocytes # 0.5 K/mm3 (0.1-1.0); Monocytes % 9.4 % (1.7-9.3); Neutrophils # 2.8 K/mm3 (1.8-7.8); Neutrophils % 50.2 % (37.0-80.0); Nucleated Red Blood Cells # 0 10^3/uL; Nucleated Red Blood Cells % 0 %; Platelet Count 207 K/mm3 (142-424); Red Blood Count 4.41 M/mm3 (4.20-5.40); Red Cell Distribution Width 19.9 % (11.5-17.5); Red Cell Distribution Width-SD 61.3 fL; White Blood Count 5.6 K/mm3 (4.8-10.8)
== END 2024-11-17 23:59 | disposition home or self-care (01) ==
LOC: LAB 15:57
PROVIDERS: PCP Family Medicine; Visit Provider Family Medicine
DX: D50.9 Iron deficiency anemia, unspecified (principal)
CPT/HCPCS: 36415; 85025

== ENCOUNTER 2025-02-09 12:58 | Outpatient (RCR) | payer OTHER, SELFPAY | END 2025-02-09 23:59 | disposition home or self-care (01) | LOC: PT 12:58 | PROVIDERS: PCP Family Medicine; Visit Provider Orthopaedic Surgery | DX: M70.71 Other bursitis of hip, right hip (principal) | CPT/HCPCS: 97163 ==

== ENCOUNTER 2025-03-15 11:08 | Outpatient (CLI) | payer OTHER, SELFPAY ==
--- OUTSIDE RECORDS SUMMARY | 2025-03-15 11:10 | XMS_ITS | Encounter Summary ---
Author Organization [facility] Address [address] [id number] Care Team Providers Care Pediatric Dermatologist Name Role Phone Parmjit Reyna MD Primary Care Provider [phone] Reason for Referral * Consultation (Routine) - Closed Specialty Diagnoses / Procedures Referred By Contac t Referred To Contact Neurosurgery Diagnoses Cervical disc displacement Displacement of lumbar intervertebral disc without myelopathy Parmjit Reyna MD [address] [place] [address] Phone: tel: fax: Referral ID Status Reason Start Date Expiration Date V isits Requested Visits Authorized [id number] Closed Specialty Services Required 12/04/2021 06/05/2023 1 1 Encounter Details Date Type Department Care Team (Latest Contact Info) Description 12/04/2021 [facility] [address] [place] [address] Parmjit Reyna MD [address] [place] [address] Cervical disc displacement (Primary Dx); Displacement of lumbar intervertebral disc without myelopathy Social History Tobacco Use Types Packs/Day Years Used Date Smoking Tobacco: Never Assessed Comments Unknown Sex and Gender Information Value Date Recorded Sex Assigned at Not on file Legal Sex Female 2:31 PM EDT Gender Identity Not on file Sexual Orientation Not on file documented as of this encounter Plan of Treatment Scheduled Referrals Name Type Priority Associated Diagnoses Orde r Schedule Ambulatory Referral to Neurosurgery Outpatient Referral Routine Cervical disc displacement Displacement of lumbar intervertebral disc without myelopathy Expected: 12/04/2021 (Approximate), Expires: 03/06/2022 documented as of this encounter Visit Diagnoses Diagnosis Cervical disc displacement- Primary Displacement of cervical intervertebral disc without myelopathy Displacement of lumbar intervertebral disc without myelopathy documented in this encounter Care Teams Pediatric Dermatologist Relationship Specialty Start Date End Date Parmjit Reyna MD [address] [place] [address] PCP - General 12/25/21 documented as of this encounter
--- OUTSIDE RECORDS SUMMARY | 2025-03-15 11:10 | XMS_ITS | Encounter Summary ---
Author Organization [facility] Address [address] [id number] Care Team Providers Care Reception Interviewer Name Role Phone Javier Green MD Primary Care Provider + Reason for Visit * Reason Comments Med Refill Encounter Details Date Type Department Care Team (Late st Contact Info) Description 10/13/2023 Refill [facility] [address] [address] Javier Green MD [address] [place] [address] Social History Tobacco Use Types Packs/Day Years Used Date Smoking Tobacco: Every Day Cigarettes 0.3 47.7 Started: 1975 Smokeless Tobacco: Never Comments Unknown Sex and Gender Information Value Date Recorded Sex Assigned at Female 06/23/2024 4:34 PM EST Legal Sex Female 10:18 AM EDT Gender Identity Not on file Sexual Orientation Straight 06/23/2024 4: 34 PM EST documented as of this encounter Plan of Treatment Upcoming Encounters Date Type Department Care Team (Late st Contact Info) Description 04/03/2025 11:00 AM EDT Office Visit [facility] [address] [place] [address] Javier Green MD [address] [place] [address] documented as of this encounter Visit Diagnoses Not on filedocumented in this encounter Additional Health Concerns Assessment Noted Time PHQ-2 Depression Total Score: 1 09/29/19 24 9:21 AM EDT documented as of this encounter Care Teams Reception Interviewer Relationship Specialty Start Date End Date Javier Green MD [address] [place] [address] PCP - General Family Medicine 09/29/23 documented as of this encounter
--- OUTSIDE RECORDS SUMMARY | 2025-03-15 11:10 | XMS_ITS | Encounter Summary ---
Author Organization [facility] Address [address] [id number] Care Team Providers Care Special Education Teachers Name Role Phone Javier Green MD Primary Care Provider + Reason for Visit * Reason Onset Date Comments Med Refill 02/06/2025 Encounter Details Date Type Department Care Team (Late st Contact Info) Description 02/06/2025 Refill [facility] [address] [place] [address] Javier Green MD [address] [place] [address] Osteoarthritis of spine with radiculopathy, lumbar region; Spondylosis of cervical region without myelopathy or radiculopathy Social History Tobacco Use Types Packs/Day Years Used Date Smoking Tobacco: Every Day Cigarettes 0.3 47.7 Started: 07/06/1977 Smokeless Tobacco: Never Alcohol Use Standard Drinks/Week Comments Never 0 (1 standard drink = 0.6 oz pur e alcohol) Comments Unknown Sex and Gender Information Value Date Recorded Sex Assigned at Female 06/23/2024 4:34 PM EST Legal Sex Female 10:18 AM EDT Gender Identity Not on file Sexual Orientation Straight 06/23/2024 4: 34 PM EST documented as of this encounter Miscellaneous Notes * Telephone Encounter - Trina Santillan RegSched Rep - 02/06/2025 9:02 AM EDT Caller: Selina Olivera Relationship: Self Best call back number: Telephone Information: Requested Prescriptions: Requested Prescriptions Pending Prescriptions Disp Refills HYDROcodone-acetaminophen (NORCO) 10-325 MG per tablet 120 tablet 0 Sig: Take 1 tablet by mouth Every 6 (Six) Hours As Needed for Severe Pain. for pain [facility] where [facility] be [facility] [address] [address] [address] [phone] [facility] [phone] Last office visit with prescribing clinician: 09/29/2024 Last telemedicine visit with prescribing clinician: Visit date not found Next office visit with prescribing clinician: 04/03/2025 Does the patient have less than a 3 day supply: [x] Yes [] No Timoteo Bhatt Rep 02/06/25 09:03 EDT documented in this encounter Plan of Treatment Upcoming Encounters Date Type Department Care Team (Late st Contact Info) Description 04/03/2025 11:00 AM EDT Office Visit [facility] [address] [place] [phone] Javier Green MD [address] [place] [address] documented as of this encounter Visit Diagnoses Diagnosis Osteoarthritis of spine with radiculopathy, lumbar region Spondylosis of cervical region without myelopathy or radiculopathy documented in this encounter Additional Health Concerns Assessment Noted Time PHQ-2 Depression Total Score: 1 09/29/19 9:21 AM EDT documented as of this encounter Care Teams Special Education Teachers Relationship Specialty Start Date End Date Javier Green MD [address] [place] [address] PCP - General Family Medicine 09/29/23 documented as of this encounter
--- OUTSIDE RECORDS SUMMARY | 2025-03-15 11:10 | XMS_ITS | Encounter Summary ---
Author Organization [facility] Address [address] [place] [address] Care Team Providers Care Food Assembler Name Role Phone Javier Green MD Primary Care Provider + Encounter Details Date Type Department Care Team (Late st Contact Info) Description 03/08/2025 Refill [facility] [address] [facility] [place] [place] [address] Javier Green MD [address] [place] [address] Osteoarthritis of spine with radiculopathy, [...] encounter Miscellaneous Notes * Telephone Encounter - Cisco Salas RegSched Rep - 03/08/2025 12:09 PM EDT Caller: Selina Olivera Relationship: Self Best call back number: [phone] Requested Prescriptions: Requested Prescriptions Pending Prescriptions Disp Refills HYDROcodone-acetaminophen (NORCO) 10-325 MG per tablet 120 tablet 0 Sig: Take 1 tablet by mouth Every 6 (Six) Hours As Needed for Severe Pain. for pain Pharmacy where request should be sent: [facility] [place] - [address] [address] [address] - [phone] PH - [phone] FX Last office visit with prescribing clinician: 09/29/2024 Last telemedicine visit with prescribing clinician: Visit date not found Next office visit with prescribing clinician: 04/03/2025 Timoteo Aguilar Rep 03/08/25 12:11 EDT documented in this encounter Plan of Treatment Upcoming Encounters Date Type Department Care Team (Late st Contact Info) Description 04/03/2025 11:00 AM EDT Office Visit [facility] [address] [facility] [place] [place] [phone] Javier Green MD [address] [place] [address] documented as of this encounter Visit Diagnoses Diagnosis Osteoarthritis of spine with radiculopathy, lumbar region Spondylosis of cervical region without myelopathy or radiculopathy documented in this encounter Additional Health Concerns Assessment Noted Time PHQ-2 Depression Total Score: 1 09/29/19 9:21 AM EDT documented as of this encounter Care Teams Food Assembler Relationship Specialty Start Date End Date Javier Green MD [address] [place] [address] PCP - General Family Medicine 09/29/23 documented as of this encounter
--- OUTSIDE RECORDS SUMMARY | 2025-03-15 11:10 | XMS_ITS | Encounter Summary ---
[facility] Address [address] [phone] Care Team Providers Care Construction Equipment Mechanic Name Role Phone Javier Green MD Primary Care Provider + Reason for Visit * Reason Comments Med Refill Encounter Details Date Type Department Care Team (Late st Contact Info) Description 01/19/2025 Refill [facility] [address] [facility] [place] [address] Javier Green MD [address] [facility] [place] [place] [address] Osteoarthritis of spine with radiculopathy, [...] Encounters Date Type Department Care Team (Late Contact Info) Description 04/03/2025 11:00 AM EDT Office Visit [facility] [address] [facility] [place] [address] Javier Green MD [address] [place] [address] documented as of this encounter Visit Diagnoses Diagnosis Osteoarthritis of spine with radiculopathy, lumbar region Spondylosis of cervical region without myelopathy or radiculopathy documented in this encounter Additional Health Concerns Assessment Noted Time PHQ-2 Depression Total Score: 1 09/29/19 24 9:21 AM EDT documented as of this encounter Care Teams Construction Equipment Mechanic Relationship Specialty Start Date End Date Javier Green MD [address] [place] [address] PCP - General Family Medicine 09/29/23 documented as of this encounter
--- OUTSIDE RECORDS SUMMARY | 2025-03-15 11:11 | XMS_ITS | Encounter Summary ---
[facility] Address [address] [id number] Care Team Providers Care Senior It Auditor Name Role Phone Javier Green MD Primary Care Provider + Encounter Details Date Type Department Care Team (Late Contact Info) Description 09/30/2024 Results Follow-Up [facility] [address] [place] [address] Javier Green MD [address] [place] [address] Social History Tobacco Use Types [...] EDT Office Visit [facility] [address] [place] [address] Javier Green MD [address] [place] [address] documented as of this encounter Visit Diagnoses Diagnosis Iron deficiency anemia, unspecified iron deficiency anemia type- Primary documented in this encounter Additional Health Concerns Assessment Noted Time PHQ-2 Depression Total Score: 1 09/29/19 24 9:21 AM EDT documented as of this encounter Care Teams Senior It Auditor Relationship Specialty Start Date End Date Javier Green MD [address] [place] [address] PCP - General Family Medicine 09/29/23 documented as of this encounter
--- OUTSIDE RECORDS SUMMARY | 2025-03-15 11:11 | XMS_ITS | Clinical Summary ---
Author Organization [facility] Address [address] [place] [address] Care Team Providers Care Automotive Service Consultant Name Role Phone Parmjit Reyna MD Primary Care Provider + [phone] Allergies Active Allergy Reactions Criticality Noted Date Comments Penicillin G Unknown - Patient st ates they do not know rxn details Low 12/25/2021 Sulfa Drugs Other - please docum ent in the comment field Low 12/25/2021 Upset stomach Medications ProAir HFA 108 (90 Base) MCG/ACT inhaler 12/20/2021 Act rizwan ALPRAZolam (Xanax) 1 MG tablet 12/19/2021 Active benzonatate (Tessalon) 100 MG capsule 12/19/2021 Active Symbicort 160-4.5 MCG/ACT inhaler 12/19/2021 Active buPROPion XL (Wellbutrin XL) 150 MG 24 hr tablet 12/19/2021 Active buPROPion XL (Wellbutrin XL) 300 MG 24 hr tablet 12/19/2021 Active estradiol (Estrace) 1 MG tablet 12/19/2021 Active famotidine (Pepcid) 20 MG tablet 11/29/2021 Active HYDROcodone-acet aminophen ([place]) 10-325 MG tablet 12/19/2021 Active promethazine (Phenergan) 25 MG tablet 12/19/2021 Active topiramate (Topamax) 200 MG tablet 300 mg. 12/19/2021 Active Belsomra 20 MG tablet 11/19/2021 Active Social History Tobacco Use Types Packs/Day Years Used Date Smoking Tobacco: Every Day Cigarettes Smokeless Tobacco: Never Alcohol Use Standard Drinks/Week Comments Never 0 (1 standard drink = 0.6 oz pur e alcohol) Comments Unknown Sex and Gender Information Value Date Recorded Sex Assigned at Not on file Legal Sex Female 2:31 PM EDT Gender Identity Not on file Sexual Orientation Not on file Last Filed Vital Signs Vital Sign Reading Time Taken Comments Blood Pressure 122/70 12/25/2021 10:40 AM EDT Pulse - - Temperature - - Respiratory Rate - - Oxygen Saturation - - Inhaled Oxygen Concentration - - Weight 51.7 kg (114 lb) 12/25/2021 10:40 AM EDT Height 162.6 cm (5' 4 ) 12/25/2021 10:40 AM EDT Body Mass Index 19.57 12/25/2021 10:40 AM EDT Plan of Treatment Health Maintenance Due Date Last Done Comments [facility]-Depression Screening 1962 [facility]-Infant/Child/Adol SDOH Screenings 1962 [facility]- SDOH Screenings 01/27/1980 [facility]-Adult SDOH Screenings 01/27/1980 [facility]-DTaP,Tdap,and Td Vaccines (1 - Tdap) 1981 [facility]-Pap Smear 1983 [facility]-Cervical Cancer Screening 01/27/1992 [facility]-HPV/Cotest 01/27/1992 CT Colonography 2007 Colonoscopy 2007 FIT-DNA 2007 FIT 2007 FOBT 2007 Sigmoidoscopy 2007 [facility]-Colorectal Cancer Screening 2007 [facility]-Pneumococcal Vaccine: 50+ Years (1 of 1 - PCV) 01/27/2012 [facility]-Zoster Vaccines (1 of 2) 01/27/2012 [id number] Vaccine ( season) 2024 11/07/2022, 02/21/2022, 03/27/2021, Additional history exists [facility]-Influenza Vaccine (#1) 03/06/202505/09, 06/23/2018, 04/17/2017, Additional history exists [facility]-RSV Vaccine: 60+ Years or (1 - 1-dose 75+ series) 2037 [facility]-Hepatitis A Vaccines Aged Out 12/29/2018, 06/05 No longer eligible based on patient's age to complete this topic HPV Vaccines Aged Out No longer eligi ble based on patient's age to complete this topic [facility]-HIB Vaccines Aged Out No longer e ligible based on patient's age to complete this topic [facility]-IPV Vaccines Aged Out No longer e ligible based on patient's age to complete this topic [facility]-Rotavirus Vaccines Aged Out No lo nger eligible based on patient's age to complete this topic Insurance [place] [id number] [employer] Care Teams Automotive Service Consultant Relationship Specialty Start Date End Date Parmjit Reyna MD [address] [place] [address] [place] [id number] PCP - General 12/25/21
--- OUTSIDE RECORDS SUMMARY | 2025-03-15 11:11 | XMS_ITS | Clinical Summary ---
Author Organization [facility] Address [address] [place] [address] Care Team Providers Care Local Area Network Systems Adminstrator Name Role Phone Javier Green MD Primary Care Provider + Allergies Active Allergy Reactions Criticality Noted Date Comments Penicillins Unknown (See Comments) Low 10/19/2012 Sulfa Antibiotics Other (See Comments) Low 10/20/19 13 Upset stomach Medications Bevespi Aerosphere 9-4.8 MCG/ACT aerosol 4 Active clopidogrel (PLAVIX) 75 MG tablet Take 1 tablet by mouth Daily. 4 Active benzonatate (TESSALON) 100 MG capsule Take 1 capsule by mouth. 4 Active atorvastatin (LIPITOR) 40 MG tablet Take 1 tablet by mouth Every Night. 4 Active albuterol sulfate HFA (Ventolin HFA) 108 (90 Base) MCG/ACT inhaler Inhale 2 puffs. 4 Active Cholecalciferol (Vitamin D3) 50 MCG (2000 UT) capsule Take by mouth. Active VITAMIN E 400 UNIT capsule Take 1 capsule by mouth Daily. Active Cyanocobalamin (B-12) [address] under the tongue. Active buPROPion XL (WELLBUTRIN XL) 150 MG 24 hr tabletIndications :Recurrent major depressive disorder, in full remission Take 1 tablet by mouth Every Morning. 30 tablet 11 4 Active buPROPion XL (WELLBUTRIN XL) 300 MG 24 hr tabletIndications :Recurrent major depressive disorder, in full remission Take 1 tablet by mouth Every Morning. 30 tablet 4 Active famotidine (PEPCID) 20 MG tablet Take 1 tablet by mouth At Night As Needed for Indigestion . 30 tablet 4 Active naloxone (NARCAN) 4 MG/0.1ML nasal sprayIndications: [facility] prescription opiate use Call 911. Don't prime. [place] in 1 nostril for overdose. Repeat in 2-3 minutes in other nostril if no or minimal breathing/r esponsivene ss. 1 each 4 Active topiramate (TOPAMAX) 200 MG tabletIndications :Chronic migraine without aura without status migrainosus, not intractable Take 0.5 tablets by mouth 3 (Three) Times a Day. 45 tablet 4 Active gabapentin (NEURONTIN) 300 MG capsule Take 1 capsule by mouth 3 (Three) Times a Day. 5 Active ferrous sulfate 325 (65 FE) MG tabletIndications :Iron deficiency anemia, unspecified iron deficiency anemia type Take 1 tablet by mouth Daily With Breakfast. 30 tablet 5 5 Active estradiol (ESTRACE) 1 MG tabletIndications :Postmenopausal TAKE ONE TABLET BY MOUTH ONCE A DAY 30 tablet 5 5 Active ALPRAZolam (XANAX) 1 MG tabletIndications :Chronic anxiety TAKE ONE TABLET BY MOUTH FOUR TIMES A DAY NEEDED FOR ANXIETY 120 tablet 5 5 Active promethazine (PHENERGAN) 25 MG tabletIndications :Chronic migraine without aura without status migrainosus, not intractable TAKE ONE TABLET BY MOUTH EVERY 6 HOURS NEEDED FOR NAUSEA 30 tablet 5 Active cyclobenzaprine (FLEXERIL) 10 MG tabletIndications :Osteoarthritis of spine with radiculopathy, lumbar region,Spondylosi s of cervical region without myelopathy or radiculopathy TAKE ONE TABLET BY MOUTH 3 TIMES A DAY NEEDED FOR MUSCLE SPASMS 90 tablet 2 5 Active HYDROcodone-aceta minophen (NORCO) 10-325 MG per tabletIndications :Osteoarthritis of spine with radiculopathy, lumbar region,Spondylosi s of cervical region without myelopathy or radiculopathy Take 1 tablet by mouth Every 6 (Six) Hours As Needed for Severe Pain. for pain 120 tablet 5 Active HYDROcodone-aceta minophen (NORCO) 10-325 MG per tabletIndications :Osteoarthritis of spine with radiculopathy, lumbar region,Spondylosi s of cervical region without myelopathy or radiculopathy Take 1 tablet by mouth Every 6 (Six) Hours As Needed for Severe Pain. for pain 120 tablet 5 03/08/20 25 Discontinu ed(Reorder ) Active Problems Problem Noted Date Diagnosed Date Other emphysema 09/29/2023 Coronary artery disease invo lving [place] coronary artery of [place] heart without angina pectoris 09/29/2023 Recurrent major depressive disorder, in full rem ission 09/29/2023 Assessment & Plan (09/29/2023 1:16 PM EDT): Condition is stable. Continue Wellbutrin XL 450 mg daily Pancreatic insufficiency 09/29/2023 Vitamin D deficiency 09/29/2023 Other dietary vitamin B12 deficiency anemia 09/04 Spondylosis of cervical mikala on without myelopathy or radiculopathy 09/29/2023 Assessment & Plan (09/29/2023 1:17 PM EDT): The pain is sufficiently controlled for ADLs and caring of her elderly mother. Continue [place] 10 mg every 6 hours as needed. Rui report shows compliance. Urine confirmation drug screening is occurred. Osteoarthritis of spine with radiculopathy, lumb ar region 09/29/2023 Chronic migraine without aur a without status migrainosus, not intractable 09/29/2023 Assessment & Plan (09/29/2023 1:15 PM EDT): Stable. Continue topiramate 100 mg 3 times daily Other insomnia 09/29/2023 Assessment & Plan (09/29/2023 1:15 PM EDT): Current treatment unsuccessful. Patient has failed trazodone, Lunesta, Ambien, melatonin. Best results have been with Belsomra. Belsomra 20 mg prescribed. Anticipate PA Chronic anxiety 09/29/2023 Assessment & Plan (09/29/2023 1:17 PM EDT): Stable. Patient will begin taking her alprazolam as needed as opposed to scheduled Postmenopausal 09/29/2023 Encounters Date Type Department Care Team Description 03/08/2025 Refill [facility] [address] [facility] [place] [address] Javier Green MD Osteoarthritis of spine with radiculopathy, lumbar region; Spondylosis of cervical region without myelopathy or radiculopathy 02/06/2025 Refill [facility] [address] [place] [address] Javier Green MD Osteoarthritis of spine with radiculopathy, lumbar region; Spondylosis of cervical region without myelopathy or radiculopathy 01/19/2025 Refill [facility] [address] [facility] [place] [address] Javier Green MD Osteoarthritis of spine with radiculopathy, lumbar region; Spondylosis of cervical region without myelopathy or radiculopathy 12/30/2024 Refill [facility] [address] [facility] [place] [address] Javier Green MD Osteoarthritis of spine with radiculopathy, lumbar region; Spondylosis of cervical region without myelopathy or radiculopathy from Last 3 Months Immunizations Immunization Administration Dates Next Due ABRYSVO (RSV, 60+ or pregnan t women 32-36 wks) 06/03/2023 Fluzone (or Fluarix & Flulav al for VFC) >6mos 05/20/2023,05/09/2022,04/17/2017,2015 Hepatitis A 12/29/2018,06/23/2018 Influenza Seasonal Injectable 06/23/2018 Family History Medical History Relation Name Comments Diabetes Brother Anthony Asif Kidney disease Brother Anthony Asif Obesity Brother Anthony Asif Alcohol abuse Father Cecilio Asif Arthritis Father Cecilio Asif Bleeding Disorder Father Cecilio Asif COPD Father Cecilio Asif Heart attack Father Cecilio Asif Heart disease Father Cecilio Asif Hypertension Father Cecilio Asif Stroke Father Cecilio Asif Arthritis Mother Jennifer Asif Cancer Mother Jennifer Asif Diabetes Mother Jennifer Asif Thyroid disease Mother Jennifer Asif Diabetes Sister Constance Lund Obesity Sister Constance Lund Thyroid disease Sister Constance Lund Relation Name Status Comments Brother Anthony Asif Father Cecilio Asif Mother Jennifer Asif Alive Sister Constance Lund Alive Social History Tobacco Use Types Packs/Day Years Used Date Smoking Tobacco: Every Day Cigarettes 0.3 47.7 Started: 07/06/1977 Smokeless Tobacco: Never Tobacco Cessation:Ready to Q uit: No Alcohol Use Standard Drinks/Week Comments Never 0 (1 standard drink = 0.6 oz pur e alcohol) Comments Unknown Sex and Gender Information Value Date Recorded Sex Assigned at Female 06/23/2024 4:34 PM EST Legal Sex Female 10:18 AM EDT Gender Identity Not on file Sexual Orientation Straight 06/23/2024 4: 34 PM EST Last Filed Vital Signs Vital Sign Reading Time Taken Comments Blood Pressure 118/65 09/29/2024 9:39 AM EDT Pulse 68 09/29/2024 9:39 AM EDT Temperature 36.5 C (97.7 F) 09/29/2024 9:39 AM EDT Respiratory Rate 20 09/29/2024 9:39 AM EDT Oxygen Saturation 98% 09/29/2024 9:39 AM EDT Inhaled Oxygen Concentration - - Weight 64.2 kg (141 lb 9.6 oz) 09/29/2024 9:39 A M EDT Height 162.6 cm (5' 4 ) 09/29/2024 9:39 AM EDT Body Mass Index 24.31 09/29/2024 9:39 AM EDT Plan of Treatment Upcoming Encounters Date Type Department Care Team (Late st Contact Info) Description 04/03/2025 11:00 AM EDT Office Visit [facility] [address] [address] Javier Green MD [address] [address] Health Maintenance Due Date Last Done Comments Annual Gynecologic Pelvic an d Breast Exam 1962 Pneumococcal Vaccine 50+ (1 of 2 - PCV) 1981 TDAP/TD VACCINES (1 - Tdap) 1981 COLOGUARD 2007 COLON CANCER SCREENING [address] Y[address] SIGMO[address] COLONOGRAPHY 2007 FECAL OCCULT BLOOD TEST 2007 FIT Testing (1 year) 2007 ZOSTER VACCINE (1 of 2) 01/27/2012 ANNUAL PHYSICAL 02/28/2022 HEPATITIS C SCREENING 02/28/2022 COVID-19 Vaccine (6 - 2024-2 6 season) 2025 05/22/2023, 11/07/2022, 02/21/2022, Additional history exists INFLUENZA VACCINE 04/05/2025 05/20/2023, , 06/23/2018, Additional history exists MAMMOGRAM 10/25/2026 10/25/2024, 10/04, 10/07/2023 COLONOSCOPY 09/15/2028 09/16/2023 COLORECTAL CANCER SCREENING 09/15/2028 Procedures Procedure Name Priority Date/Time Associated Diagnosis Comments MAMMO SCREENING DIGITAL TOMOSYNTHESIS BILATERAL W CAD Routine 10/21/2024 Encounter for screening mammogram for malignant neoplasm of breast SCANNED - COLONOSCOPY 09/16/2023 from Last 3 Months or Most Recently Relevant to Health Maintenance Results * Mammo Screening Digital Tomosynthesis Bilateral With CAD (10/21/2024) Anatomical Region Laterality Modality Breast N/A Mammography Javier Green MD IMG MAMMOGRAPHY ORDERABL ES Final Result * Colonoscopy, Scan (09/16/2023) Javier Green MD CHART REVIEW TABS Fin al Result from Last 3 Months or Most Recently Relevant to Health Maintenance Insurance [facility] [facility] Care Teams Local Area Network Systems Adminstrator Relationship Specialty Start Date End Date Javier Green MD [address] [facility] [address] PCP - General Family Medicine 09/29/23
--- OUTSIDE RECORDS SUMMARY | 2025-03-15 11:11 | XMS_ITS | Encounter Summary ---
Author Organization [facility] Address [address] [place] [address] Care Team Providers Care Automobile Service Station Manager Name Role Phone Parmjit Reyna MD Primary Care Provider + [phone] Reason for Referral * Consultation (Routine) - Closed Specialty Diagnoses / Procedures Referred By Wong rodriguez Referred To Contact Neurology Diagnoses Intractable migraine with aura without status migrainosus Chronic narcotic use Acute nonintractable headache, unspecified headache type Tension headache Chronic neck pain Medication overuse headache Cervicogenic headache Chronic obstructive pulmonary disease, unspecified COPD type (CMS/HCC) Simone Uriarte APRN [address] [place] [address] Phone: tel: fax: Kuldeep Suazo MD [address] [facility] [address] [place] [address] Phone: tel: fax: Referral ID Status Reason Start Date Expiration Date V isits Requested Visits Authorized [id number] Closed Specialty Services Required 02/27/2022 08/29/2023 1 1 Encounter Details Date Type Department Care Team (Latest Contact Info) Description 02/27/2022 [facility] [address] [place] [address] Simone Uriarte APRN [address] [place] [address] Intractable migraine with aura without status migrainosus (Primary Dx); Chronic narcotic use; Acute nonintractable headache, unspecified headache type; Tension headache; Chronic neck pain; Medication overuse headache; Cervicogenic headache; Chronic obstructive pulmonary disease, unspecified COPD type (CMS/HCC) Social History Tobacco Use Types Packs/Day Years [...] Priority Associated Diagnoses Orde r Schedule Ambulatory referral to Neurology Outpatient Referral Routine Intractable migraine with aura without status migrainosus Chronic narcotic use Acute nonintractable headache, unspecified headache type Tension headache Chronic neck pain Medication overuse headache Cervicogenic headache Chronic obstructive pulmonary disease, unspecified COPD type (CMS/HCC) Ordered: 02/27/2022 documented as of this encounter Visit Diagnoses Diagnosis Intractable migraine with aura without status migrainosus- Primary Chronic narcotic use Acute nonintractable headache, unspecified headache type Tension headache Chronic neck pain Cervicalgia Medication overuse headache Drug induced headache, not elsewhere classified Cervicogenic headache Headache Chronic obstructive pulmonary disease, unspecified COPD type (CMS/HCC) documented in this encounter Additional Health Concerns Assessment Noted Time A fall risk assessment has been complete d for the patient 12/25/2021 10:45 AM EDT documented as of this encounter Care Teams Automobile Service Station Manager Relationship Specialty Start Date End Date Parmjit Reyna MD [address] [place] [address] PCP - General 12/25/21 documented as of this encounter
[2025-03-15 11:39] LABS: Hematocrit 42.7 % (37.0-47.0); Hemoglobin 13.8 g/dL (12.2-16.2); Immature Granulocytes % 0.3 %; Mean Corpuscular HGB Conc 32.3 g/dL (31.8-35.4); Mean Corpuscular Hemoglobin 31.1 pg (27.0-31.2); Mean Corpuscular Volume 96.2 fl (81-99); Nucleated Red Blood Cells % 0 %; Platelet Count 163 K/mm3 (142-424); Red Blood Count 4.44 M/mm3 (4.20-5.40); Red Cell Distribution Width-SD 46.0 fL; White Blood Count 5.8 K/mm3 (4.8-10.8)
[2025-03-15 12:18] LABS: Albumin Level 4.4 g/dl (3.5-5.0); Chloride 108 mmol/L (98-107); Sodium 137 mmol/L (136-145)
[2025-03-15 12:19] LABS: Potassium 4.8 mmoL/L (3.5-5.1)
[2025-03-15 12:21] LABS: Alanine Aminotransferase 21 U/L (12-78); Alkaline Phosphatase 82 U/L (38-126); Anion Gap 11.8 mEq/L (5-15); Aspartate Amino Transferase 33 U/L (14-36); Bilirubin,Direct 0.1 mg/dl (0.0-0.4); Bilirubin,Indirect 0.4 mg/dL (0.0-0.9); Bilirubin,Total 0.5 mg/dl (0.2-1.3); Bilirubin,Unconjugated 0.3 mg/dL (0.0-1.1); Blood Urea Nitrogen 9 mg/dl (7-17); Calcium 9.8 mg/dl (8.4-10.2); Carbon Dioxide 22 mmol/L (22.0-30.0); Cholesterol 182 mg/dl (140-200); Creatinine,Serum 1.00 mg/dl (0.52-1.04); Estimated Glomerular Filt Rate 56 ml/min (>60); GFR (African American) 68 ML/MIN (>60); Glucose 77 mg/dl (74-100); Total Protein,Serum 6.8 g/dl (6.3-8.2); Triglycerides 78 mg/dl (30-150)
[2025-03-15 12:22] LABS: HDL Cholesterol 97 mg/dl (40-60); Iron 114 ug/dL (37-170); Magnesium 1.6 mg/dl (1.6-2.3)
[2025-03-15 12:32] LABS: Total Iron Binding Capacity 314 ug/dL (265-497)
[2025-03-15 12:53] LABS: Thyroid Stimulating Hormone 2.47 uIU/mL (0.465-4.68)
[2025-03-15 16:04] LABS: Free T4 (Free Thyroxine) 0.72 ng/dl (0.78-2.19)
== END 2025-03-15 23:59 | disposition home or self-care (01) ==
LOC: LAB 11:08
PROVIDERS: PCP Family Medicine; Visit Provider Internal Medicine
DX: I73.9 Peripheral vascular disease, unspecified (principal); K86.81 Exocrine pancreatic insufficiency; N02.B1 Recurrent and persistent immunoglobulin A nephropathy with glomerular lesion; K76.89 Other specified diseases of liver; I25.10 Atherosclerotic heart disease of native coronary artery without angina pectoris; R93.89 Abnormal findings on diagnostic imaging of other specified body structures
CPT/HCPCS: 36415; 80048; 80061; 80076; 83540; 83550; 83735; 84439; 84443; 85025